=== PATIENT | female | born 2000 | race Caucasian/White ===

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

== ENCOUNTER 2021-05-04 15:29 | Emergency (ER) | payer OTHER ==
--- OUTSIDE RECORDS SUMMARY | 2021-05-04 15:43 | XMS REPORT | Continuity of Care Document ---
:2000 Author Organization [facility] t Address [address] [place] [address] Care Team Providers Name Role Phone Minnie Fontana Primary Care Physician GRISEL GOODWIN Attending Clinician Unavailable Grisel Goodwin MD Attending Clinician Doctor Unassigned, Name Attending Clinician Unavailable Pee ROBIN Attending Clinician Pob, Lab Main Attending Clinician Unavailable FISH Attending Clinician Unavailable Esvin LAWS Attending Clinician Ultrasound Attending Clinician Unavailable Hola Menjivar MD Attending Clinician GRISEL GOODWIN Admitting Clinician Unavailable FISH Admitting Clinician Unavailable Grisel Goodwin MD Admitting Clinician Payers Payer Name Policy Type Policy Number Effective Date Expiration Date S george FORMERLY [facility] [id number] 2020 00:00:00 MEDICAID [place] [facility] [id number] 2020 00:00:00 [facility] [id number] 2015 CHOICE 00:00:00 [facility] [id number] 2019 00:00:00 Problems Condition Condition Condition Status Onset Resolution Last Treating Co mments Source Name Details Category Date Date Treatment Clinician Date COVID-19 COVID-19 Disease Active Unive rs virus virus 1-13 [place] [facility] Liveborn Liveborn Disease Active Unive rs , of , of 1-13 [place] of kumar kumar [place] , , 00 [place] d[place] born in born in [facility] hospital by by delivery delivery Oligohydra Oligohydra Disease Active U nivers mnios mnios 1-12 [place]y of antepartum antepartum [place] , third , third 00 Medical trimester, trimester, Br anch other other fetus fetus 38 weeks 38 weeks Disease Active Unive rs gestation gestation 1-12 ity of of of 00:00: [place] 00 [facility] High risk High risk Disease Active 2020-04 Uni vers , , 1-30 [place] of ante[place] ante[place] [facility] Abnormal Abnormal Disease Active 2020-04 Unive rs maternal maternal 1-16 ity of glucose glucose 00:00: [place] tolerance, tolerance, 00 Me dical antepartum antepartum Br anch Uterine Uterine Disease Active 2020-04 Univers size-date size-date 02 it[place] of discrepanc discrepanc 00:00[place] in third y in third 00 Me dical trimester trimester Bran ch Morbid Morbid Disease Active 2020-04 Univers obesity obesity 1-02 [place] of with body with body 00:00[place] mass index mass index 00 Me dical of of Branch 40.0-49.9 40.0-49.9 Nausea and Nausea and Disease Active U nivers vomiting vomiting 9-02 ity of during during 00:00: [place] [facility] Supervisio Supervisio Disease Active U nivers n of high n of high 9-02 ity of risk risk 00:00: [place] [facility] in third in third Branch trimester trimester Obesity in Obesity in Disease Active U nivers 5-24 ity of 00:00: [address] [place] [address] Depression Depression Disease Active U nivers during during 5-24 [place] third in third 00 Medica l trimester trimester Bran ch Vaping Vaping Disease Active Univers nicotine nicotine 09-05 ity of dependence dependence 00:00[place] , tobacco , tobacco 00 [facility] product product Branch Allergies, Adverse Reactions, Alerts Allergy Allergy Status Severity Reaction(s) Onset Inactive Treating Comm ents Source Name Type Date Date Clinician NO KNOWN Drug Active Univers ALLERGIE Class ity of S [facility] Social History Social Habit Start Date Stop Date Quantity Comments Source ASSERTION 2020-08-11 [facility] 00:00:00 [facility] Exposure to Not sure [facility] SARS-CoV-2 [facility] [place] [facility] (event) [place] Alcohol intake 2021-04-28 2021-04-28 Ex-drinker [facility] 00:00:00 00:00:00 (finding) [facility] Tobacco use and 2015-01-25 2015-01-25 Never used Universit y of exposure 00:00:00 00:00:00 [facility] Sex Assigned At [birth year] Universit y of 00:00:00 00:00:00 [facility] Smoking Status Start Date Stop Date Source Never smoker [facility] Medications Ordered Filled Start Stop Current Ordering Indication Dosage Frequency Signature Comments Components Source Medication Medication Date Date Medication? Clinician (SIG) Name Name ibuprofen Yes 600mg 600 mg, Univ ers (IBU) 1-15 Oral, Q6H ity of tablet 600 12:00: ABX, First [place] mg 00 dose on Medical Sat Branch 04/29/21 at 0600, Until Discontinu ed, Routine ibuprofen Yes 600mg 600 mg, Univ ers (IBU) 1-15 Oral, Q6H ity of tablet 600 12:00: ABX, First [place] mg 00 dose on Medical Sat Branch 04/29/21 at 0600, Until Discontinu ed, Routine SERTraline Yes 50mg 50 mg, Unive rs (ZOLOFT) 1-14 Oral, ity of tablet 50 15:00: DAILY, [place] mg 00 First dose Medical on Fri Branch 04/28/21 at 0900, Until Discontinu ed, Routine SERTraline Yes 50mg 50 mg, Unive rs (ZOLOFT) 1-14 Oral, ity of tablet 50 15:00: DAILY, [place] mg 00 First dose Medical on Sat Branch 04/28/21 at 0900, Until Discontinu ed, Routine ketorolac 2021- Yes 30mg 30 mg, Unive rs (TORADOL) 04-28 Slow IV ity of injection 12:00: 11:59 Push, Q6H [place] 30 mg 00 :00 ABX, 4 Medical doses, Branch First dose on Sat04/28/21 at 0600, Last dose on 04/29/21 at 0000, Routine
tribal council member approving Restricted medication : CORIN GOODWIN ketorolac 2021- Yes 30mg 30 mg, Unive rs (TORADOL) 04-28 Slow IV ity of injection 12:00: 11:59 Push, Q6H [place] 30 mg 00 :00 ABX, 4 Medical doses, Branch First dose on Sat04/28/21 at 0600, Last dose on 04/29/21 at 0000, Routine
tribal council member approving Restricted medication : CORIN GOODWIN PNV 2021- No Take by Univers no.95/violette 04-2814 mouth. ity o f 09:02: 00:00 [place] fum/folic 41 :00 [facility] ( ORAL) PNV 2021- No Take by Univers no.95/violette 04-2814 mouth. ity o f 09:02: 00:00 [place] fum/folic 41 :00 [facility] ( ORAL) HYDROcodone Yes 1{tbl} 1 tablet, Univers -acetaminop 14 Oral, ity of hen (NORCO 06:00: Q6HPRN, [place] 5) 5-325 mg 00 Starting Medi boris tablet 1 on Sat Branch tablet 04/28/21 at 0000, Until Discontinu ed, Routine, Pain (scale 7-10) acetaminoph Yes 650mg 650 mg, Un margo en 1-14 Oral, Q6H ity of (TYLENOL) 06:00: ABX, First [place] tablet 650 00 dose on Medica l mg Sat Branch 1/14/22 at 0000, Until Discontinu ed, Routine HYDROcodone 0 Yes 1{tbl} 1 tablet, Univers -acetaminop 1-14 Oral, ity of hen (NORCO 06:00: Q6HPRN, [place] 5) 5-325 mg 00 Starting Medi boris tablet 1 on Fri Branch tablet 04/28/21 at 0000, Until Discontinu ed, Routine, Pain (scale 7-10) acetaminoph Yes 650mg 650 mg, Un margo en 1-14 Oral, Q6H ity of (TYLENOL) 06:00: ABX, First [place] tablet 650 00 dose on Medica l mg Fri Branch 04/28/21 at 0000, Until Discontinu ed, Routine acetaminoph 0 Yes [id number] 650mg Take 2 Univers en 325 mg 1-14 tablets by ity of tablet 00:00: mouth [place] 00 every 6 Medical (six) Branch hours as needed for Pain (scale 1-3) or Pain (scale 4-6). Yes [id number] 1{tbl} Take 1 Univers vitamin 1-14 tablet by ity of w/FA tablet 00:00: mouth [place] 00 daily. Medical Branch docusate 0 Yes [id number] 240mg Take 1 U nivers calcium 240 1-14 capsule by it y of mg capsule 00:00: mouth once [place] 00 daily as Medical needed for Branch Constipati on. ferrous 0 Yes [id number] 325mg Take 1 Un margo sulfate 325 1-14 tablet by ity of mg (65 mg 00:00: mouth 2 [place] iron) 00 (two) Medical tablet times Branch daily. ibuprofen 0 Yes [id number] 600mg Take 1 Univers 600 mg 1-14 tablet by ity of tablet 00:00: mouth [place] 00 every 6 Medical (six) Branch hours as needed (Pain). Take with food or milk. acetaminoph 0 Yes [id number] 650mg Take 2 Univers en 325 mg 1-14 tablets by ity of tablet 00:00: mouth [place] 00 every 6 Medical (six) Branch hours as needed for Pain (scale 1-3) or Pain (scale 4-6). 2021-0 Yes [id number] 1{tbl} Take 1 Univers vitamin 1-14 tablet by ity of w/FA tablet 00:00: mouth [place] 00 daily. Medical Branch docusate 0 Yes [id number] 240mg Take 1 U nivers calcium 240 1-14 capsule by it y of mg capsule 00:00: mouth once [place] 00 daily as Medical needed for Branch Constipati on. ferrous Yes [id number] 325mg Take 1 Un margo sulfate 325 1-14 tablet by ity of mg (65 mg 00:00: mouth 2 [place] iron) 00 (two) Medical tablet times Branch daily. ibuprofen Yes [id number] 600mg Take 1 Univers 600 mg 1-14 tablet by ity of tablet 00:00: mouth [place] 00 every 6 Medical (six) Branch hours as needed (Pain). Take with food or milk. acetaminoph Yes [id number] 650mg Take 2 Univers en 325 mg 1-14 tablets by ity of tablet 00:00: mouth [place] 00 every 6 Medical (six) Branch hours as needed for Pain (scale 1-3) or Pain (scale 4-6). Yes [id number] 1{tbl} Take 1 Univers vitamin 1-14 tablet by ity of w/FA tablet 00:00: mouth [place] 00 daily. Medical Branch docusate Yes [id number] 240mg Take 1 U nivers calcium 240 1-14 capsule by it y of mg capsule 00:00: mouth once [place] 00 daily as Medical needed for Branch Constipati on. ferrous Yes [id number] 325mg Take 1 Un margo sulfate 325 1-14 tablet by ity of mg (65 mg 00:00: mouth 2 [place] iron) 00 (two) Medical tablet times Branch daily. ibuprofen 0 Yes [id number] 600mg Take 1 Univers 600 mg 1-14 tablet by ity of tablet 00:00: mouth [place] 00 every 6 Medical (six) Branch hours as needed (Pain). Take with food or milk. HYDROcodone 0 2021- Yes [id number] 1{tbl} Take 1 U nivers -acetaminop 1-14 -22 tablet by it y of hen 5-325 00:00: 05:59 mouth [place] mg tablet 00 :00 every 6 Medical (six) Branch hours as needed for Pain (scale 7-10) for up to 7 days. Indication s: acute pain HYDROcodone 2021- Yes [id number] 1{tbl} Take 1 U nivers -acetaminop 04-28 tablet by it y of hen 5-325 00:00: 05:59 mouth [place] mg tablet 00 :00 every 6 Medical (six) Branch hours as needed for Pain (scale 7-10) for up to 7 days. Indication s: acute pain HYDROcodone 2021- Yes [id number] 1{tbl} Take 1 U nivers -acetaminop 04-28 tablet by it y of hen 5-325 00:00: 05:59 mouth [place] mg tablet 00 :00 every 6 Medical (six) Branch hours as needed for Pain (scale 7-10) for up to 7 days. Indication s: acute pain gabapentin 2021- Yes [id number] 300mg Take 1 Univers 300 mg 04-28 capsule by ity of capsule 00:00: 05:59 mouth 3 [place] 00 :00 (three) Medical times Branch daily for 5 days. gabapentin 2021- Yes [id number] 300mg Take 1 Univers 300 mg 04-28 capsule by ity of capsule 00:00: 05:59 mouth 3 [place] 00 :00 (three) Medical times Branch daily for 5 days. acetaminoph 2021- No 1000mg 1,000 mg, Univers en ADULT 04-27 IV ity of ([facility]) 21:00: 22:33 Infusion, [place] injection 00 :00 Administer Medi boris 1,000 mg over 15 Branch Minutes, POST-PROCE DURE ONCE, 1 dose, Starting on [place] 04/27/21 at 1500, Until [place] 04/27/21 at 1633, Routine, Pain (scale 1-3), Pain (scale 4-6)
In dication: Perioperat mahad Patient gabapentin Yes 300mg 300 mg, Uni vers (NEURONTIN) 04-27 Oral, TID, it y of capsule 300 20:00: First dose [place] mg 00 on [place] Medical 04/27/21 at Branch 1400, Until Discontinu ed, Routine gabapentin Yes 300mg 300 mg, Uni vers (NEURONTIN) 04-27 Oral, TID, it y of capsule 300 20:00: First dose [place] mg 00 on [place] Medical 04/27/21 at Branch 1400, Until Discontinu ed, Routine simethicone 2021-0 Yes 125mg 125 mg, Un margo (MYLICON) 04-27 Oral, ity of chewable 19:00: PC+HS, [place] tablet 125 00 First dose Med ical mg on [place] Branch 04/27/21 at 1300, Until Discontinu ed, Routine simethicone 2021-0 Yes 125mg 125 mg, Un margo (MYLICON) 04-27 Oral, ity of chewable 19:00: PC+HS, [place] tablet 125 00 First dose Med ical mg on [place] Branch 04/27/21 at 1300, Until Discontinu ed, Routine diphenhydrA 2021-0 Yes 25mg 25 mg, Univ ers MINE 04-27 Oral, ity of (BENADRYL) 16:57: Q6HPRN, [place] tablet 25 02 Starting Medica l mg on [place] Branch 04/27/21 at 1057, Until Discontinu ed, Routine, Sleep, Itching ondansetron 2021-0 Yes 4mg 4 mg, Slow Univers (ZOFRAN 04-27 IV Push, ity of (PF)) 16:57: Q8HPRN, [place] injection 4 02 Starting Medi boris mg on [place] Branch 04/27/21 at 1057, Until Discontinu ed, Routine, Nausea and Vomiting (N/V) docusate 2021-0 Yes 240mg 240 mg, Unive rs calcium 04-27 Oral, ity of (SURFAK) 16:57: QDAILYPRN, [place] capsule 240 02 Starting Medi boris mg on [place] Branch 04/27/21 at 1057, Until Discontinu ed, Routine, Constipati on magnesium 2021-0 Yes 30mL 30 mL, Univer s hydroxide 04-27 Oral, ity of (MILK OF 16:57: QDAILYPRN, [place] MAGNESIA) 02 Starting Medica l 400 mg/5 mL on [facility] Branch suspension 04/27/21 at 30 mL 1057, Until Discontinu ed, Routine, Constipati on diphenhydrA 2021-0 Yes 25mg 25 mg, Univ ers MINE 04-27 Oral, ity of (BENADRYL) 16:57: Q6HPRN, [place] tablet 25 02 Starting Medica l mg on [place] Branch 04/27/21 at 1057, Until Discontinu ed, Routine, Sleep, Itching ondansetron 0 Yes 4mg 4 mg, Slow Univers (ZOFRAN 04-27 IV Push, ity of (PF)) 16:57: Q8HPRN, [place] injection 4 02 Starting Medi boris mg on [place] Branch 04/27/21 at 1057, Until Discontinu ed, Routine, Nausea and Vomiting (N/V) docusate Yes 240mg 240 mg, Unive rs calcium 04-27 Oral, ity of (SURFAK) 16:57: QDAILYPRN, [place] capsule 240 02 Starting Medi boris mg on [facility] Branch 04/27/21 at 1057, Until Discontinu ed, Routine, Constipati on magnesium Yes 30mL 30 mL, Univer s hydroxide 04-27 Oral, ity of (MILK OF 16:57: QDAILYPRN, [place] MAGNESIA) 02 Starting Medica l 400 mg/5 mL on [facility] Branch suspension 04/27/21 at 30 mL 1057, Until Discontinu ed, Routine, Constipati on bisacodyL 0 Yes 10mg 10 mg, Univer s (DULCOLAX) 04-27 Rectal, ity of suppository 16:57: QDAILYPRN, [place] 10 mg Starting Medical on [facility] Branch 04/27/21 at 1057, Until Discontinu ed, Routine, Constipati on bisacodyL 0 Yes 10mg 10 mg, Univer s (DULCOLAX) 04-27 Rectal, ity of suppository 16:57: QDAILYPRN, [place] 10 mg Starting Medical on [place] Branch 04/27/21 at 1057, Until Discontinu ed, Routine, Constipati on azithromyci 2021-0 202- No 500mg 500 mg, IV Univers n 04-27 Piggyback, ity of (ZITHROMAX) 15:45: 16:56 ONCE, 1 [place] 500 mg in 00 :28 dose, On Medica l NaCl 0.9% [place] Branch (NS) 250 mL 04/27/21 at VIAL-MATE 0945, IV Administer piggyback over 60 Minutes, 250 mL
R sera for Anti-Infec tive: Surgical Prophylaxi s
Surgi boris Prophylaxi s: POLICE LIAISON OFFICER
Duration of therapy: within 24 hours of surgery mupirocin 2021-0 Yes Intra-op Univ ers (BACTROBAN 1-13 ity of OINT) 2 % 15:44: [place] skin 00 Medical ointment Branch mupirocin 0 Yes Intra-op Univ ers (BACTROBAN 1-13 ity of OINT) 2 % 15:44: [place] skin Medical ointment Branch sodium Yes PRN, Univers chloride 04-27 Starting ity of 0.9 % 15:23: on [place] irrigation 00 04/27/21 at Med ical solution 0923, Branch Until Discontinu ed, Intra-op sodium Yes PRN, Univers chloride 04-27 Starting ity of 0.9 % 15:23: on [place] irrigation 00 04/27/21 at Med ical solution 0923, [place] Until Discontinu ed, Intra-op clindamycin 2021- No 900mg 900 mg, IV Univers in 5 % 04-27 Piggyback, ity of dextrose 15:00: 13:40 Q8H ABX, [place] (CLEOCIN) 00 :05 First dose Medi boris 900 mg/50 on [place] Branch mL IV 04/27/21 at piggyback 0900, RTU 900 mg Until Discontinu ed, Administer over 30 Minutes, 50 mL
Reas on for Anti-Infec tive: Surgical Prophylaxi s
Surgi boris Prophylaxi s: POLICE LIAISON OFFICER
Duration of therapy: within 24 hours of surgery
Restricte d use approved by: ADC PROVIDER LR 1000 mL 2021- No 999mL/h 999 mL/hr, Univers + oxytocin 04-27 IV ity of 20 units IV 14:45: 16:56 Infusion, [place] Solution 00 :53 ONCE, On Medical [place] Branch 04/27/21 at 0845, For 1 dose LR 1000 mL 2021- No 2mU/min at 6-120 Univers + oxytocin 04-27 mL/hr, IV ity of 20 units IV 06:00: 16:56 Infusion, [place] Solution 00 :28 TITRATE, Medical Starting Branch on [place] 04/27/21 at 0000, Until [place] 04/27/21 at 1056, ANGELICA gentamicin 2021- No 5mg/kg 380 mg Un margo 40 mg/mL 04-27 (rounded ity of 380 mg in 03:15: 13:40 from 375.5 [place] NaCl 0.9% 00 :05 mg = 5 Medical (NS) 250 mL mg/kg Branch IV infusion ?75.1 kg Adjusted weight), IV Infusion, Q24H ABX, First dose (after last modificati on) on Sat04/26/21 at 2115, Until Discontinu ed, Administer over 60 Minutes, 250 mL
Reas on for Anti-Infec tive: Empiric Therapy for Suspected Infection< br>Empiric Therapy Site: Pelvic
Duration of therapy: 72 hours ampicillin 2021- No 2g 2,000 mg Un margo (POLYCILLIN 04-27 (2 g), IV it y of -N) 2,000 03:15: 13:40 Piggyback, [place] mg in NaCl 00 :05 Q6H ABX, Medic al 0.9% (NS) First dose Bran ch 100 mL on Sat MINI-BAG 04/26/21 at 2115, Until Discontinu ed, Administer over 30 Minutes, 100 mL
Reas on for Anti-Infec tive: Empiric Therapy for Suspected Infection acetaminoph 2021- No 650mg 650 mg, U nivers en 04-27 Oral, ity of (TYLENOL) 01:58: 16:56 Q6HPRN, [place] tablet 650 49 :28 Starting Medic al mg on Wed Branch 04/26/21 at 1958, Until [place] 04/27/21 at 1056, Routine, Temp > 38.5 C LR 1000 mL 2021- No 4mU/min 4 Uni vers + oxytocin 04-26 nancy-unit it y of 20 units IV 22:00: 16:56 s/min (12 [place] Solution 00 :28 mL/hr), IV Medic al Infusion, Branch CONTINUOUS , Starting on Sat04/26/[address] using titration orders at midnight<b r> lactated No 500mL at 999 Unive rs ringers IV 04-26 mL/hr, 500 it y of infusion 21:30: 21:14 mL, IV [place] 500 mL 00 :00 Infusion, Medical ONCE, 1 Branch dose, On Sat04/26/21 at 1530, Routine D5W-LR IV No 1000mL at 125 Uni vers infusion 04-26 mL/hr, IV ity o f 1,000 mL 20:30: 16:56 Infusion, [place] 00 :35 CONTINUOUS Medical , Starting Branch on Sat04/26/21 at 1430, Until [place] 04/27/21 at 1056, Routine FENTanyl PF No 100ug 100 mcg, Univers (SUBLIMAZE 04-26 Slow IV ity o f (PF)) 20:22: 16:56 Push, [place] injection 54 :28 Q1HPRN, Medical 100 mcg Starting Branch on Sat04/26/21 at 1422, Until [place] 04/27/21 at 1056, Routine, contractio n pain without an epidural and SVE < 8 cm and Cat I strip proMETHazin No 25mg 25 mg, IV Univers e 04-26 Piggyback, ity of (PHENERGAN) 20:22: 16:56 Q4HPRN, [place] 25 mg in 46 :28 Starting Medical NaCl 0.9% on Sat Branch (NS) 50 mL 04/26/21 at IV 1422, piggyback Until [place] 04/27/21 at 1056, Routine, Nausea and Vomiting (N/V) sodium No 30mL 30 mL, Univers citrate-cit 04-26 Oral, ity of chanda acid 20:20: 14:15 PRE-PROCED [place] (BICITRA) 04 :00 URE ONCE, Medic al 500-334 1 dose, Branch mg/5 mL Starting solution 30 on Sat mL 04/26/21 at 1420, Until Discontinu ed, Routine, Surgery/Pr ocedure lactated 2021- No 500mL at 999 Unive rs ringers IV 04-26-13 mL/hr, 500 it y of infusion 20:20: 16:56 mL, IV [place] 500 mL 03 :35 Infusion, Medical PRN - SEE Branch INSTRUCTIO NS, Starting on Sat04/26/21 at 1420, Until [place] 04/27/21 at 1056, Routine lactated 2021- No 500mL at 999 Unive rs ringers IV 04-26-13 mL/hr, 500 it y of infusion 20:20: 13:21 mL, IV [place] 500 mL 03 :00 Infusion, Medical PRN - SEE Branch INSTRUCTIO NS, 1 dose, Starting on Sat04/26/21 at 1420, Until Discontinu ed, Routine PNV Yes Take by Univers no.95/violette 1-12 mouth. ity of us 14:11: [place] fum/folic 24 Medical ac Branch ( ORAL) PNV Yes Take by Univers no.95/violette 1-10 mouth. ity of us 23:23: [place] fum/folic 46 Medical ac Branch ( ORAL) azithromyci 2021- Yes [id number] 1000mg Take 2 Univers n 500 mg 04-20 tablets by ity of tablet 00:00: 05:59 mouth [place] 00 :00 daily for Medical 1 day. Branch fluconazole 2021- Yes [id number] 200mg Take 1 Univers 200 mg 04-17 tablet by ity of tablet 00:00: 05:59 mouth [place] 00 :00 daily for Medical 1 day. Branch PNV 2020-04 Yes Take by Univers no.95/violette 2-23 mouth. ity of us 14:22: [place] fum/folic 21 Medical ac Branch ( ORAL) PNV 2020-04 Yes Take by Univers no.95/violette 2-23 mouth. ity of us 14:22: [place] fum/folic 21 Medical ac Branch ( ORAL) PNV 2020-04 Yes Take by Univers no.95/violette 2-23 mouth. ity of us 14:22: [place] fum/folic 21 Medical ac Branch ( ORAL) PNV 2021-1 Yes Take by Univers no.95/violette 2-23 mouth. ity of us 14:22: [place] fum/folic 21 Medical ac Branch ( ORAL) PNV 2020-04 Yes Take by Univers no.95/violette 2-23 mouth. ity of us 14:22: [place] fum/folic 21 Medical ac Branch ( ORAL) PNV 2020-04 Yes Take by Univers no.95/violette 2-23 mouth. ity of us 14:22: [place] fum/folic 21 Medical ac Branch ( ORAL) PNV 2020-04 Yes Take by Univers no.95/violette 2-23 mouth. ity of us 14:22: [place] fum/folic 21 Medical ac Branch ( ORAL) PNV 2020-04 Yes Take by Univers no.95/violette 2-21 mouth. ity of us 21:54: [place] fum/folic 13 Medical ac Branch ( ORAL) PNV 2020-04 Yes Take by Univers no.95/violette 2-21 mouth. ity of us 21:54: [place] fum/folic 13 Medical ac Branch ( ORAL) PNV 2020-04 Yes Take by Univers no.95/violette 2-21 mouth. ity of us 16:55: [place] fum/folic 17 Medical ac Branch ( ORAL) PNV 2020-04 Yes Take by Univers no.95/violette 2-05 mouth. ity of us 23:03: [place] fum/folic 25 Medical ac Branch ( ORAL) PNV 2020-04 Yes Take by Univers no.95/violette 1-05 mouth. ity of 16:07: [place] fum/folic 50 Medical ac Branch ( ORAL) PNV 2020-04 Yes Take by Univers no.95/violette 1-05 mouth. ity of us 16:07: [place] fum/folic 50 Medical ac Branch ( ORAL) PNV 2020-04 Yes Take by Univers no.95/violette 1-05 mouth. ity of us 16:07: [place] fum/folic 50 Medical ac Branch ( ORAL) PNV 2020-04 Yes Take by Univers no.95/violette 1-05 mouth. ity of 16:07: [place] fum/folic 50 Medical ac Branch ( ORAL) SERTraline Yes [id number] 50mg Take 1 U nivers 50 mg 9-27 tablet by ity of tablet 00:00: mouth [place] 00 daily. Medical Branch SERTraline 0 Yes [id number] 50mg Take 1 U nivers 50 mg 9-27 tablet by ity of tablet 00:00: mouth [place] 00 daily. Medical Branch SERTraline 0 Yes [id number] 50mg Take 1 U nivers 50 mg 9-27 tablet by ity of tablet 00:00: mouth [place] 00 daily. Medical Branch SERTraline 0 Yes [id number] 50mg Take 1 U nivers 50 mg 9-27 tablet by ity of tablet 00:00: mouth [place] 00 daily. Medical Branch SERTraline 0 Yes [id number] 50mg Take 1 U nivers 50 mg 9-27 tablet by ity of tablet 00:00: mouth [place] 00 daily. Medical Branch SERTraline 0 Yes [id number] 50mg Take 1 U nivers 50 mg 9-27 tablet by ity of tablet 00:00: mouth [place] 00 daily. Medical Branch SERTraline 0 Yes [id number] 50mg Take 1 U nivers 50 mg 9-27 tablet by ity of tablet 00:00: mouth [place] 00 daily. Medical Branch SERTraline 0 Yes [id number] 50mg Take 1 U nivers 50 mg 9-27 tablet by ity of tablet 00:00: mouth [place] 00 daily. Medical Branch SERTraline 0 Yes [id number] 50mg Take 1 U nivers 50 mg 9-27 tablet by ity of tablet 00:00: mouth [place] 00 daily. Medical Branch SERTraline 0 Yes [id number] 50mg Take 1 U nivers 50 mg 9-27 tablet by ity of tablet 00:00: mouth [place] 00 daily. Medical Branch SERTraline 0 Yes [id number] 50mg Take 1 U nivers 50 mg 9-27 tablet by ity of tablet 00:00: mouth [place] 00 daily. Medical Branch SERTraline 0 Yes [id number] 50mg Take 1 U nivers 50 mg 9-27 tablet by ity of tablet 00:00: mouth [place] 00 daily. Medical Branch SERTraline 0 Yes [id number] 50mg Take 1 U nivers 50 mg 9-27 tablet by ity of tablet 00:00: mouth [place] 00 daily. Medical Branch SERTraline 2021-0 Yes [id number] 50mg Take 1 U nivers 50 mg 9-27 tablet by ity of tablet 00:00: mouth [place] 00 daily. Medical Branch SERTraline 0 Yes [id number] 50mg Take 1 U nivers 50 mg 9-27 tablet by ity of tablet 00:00: mouth [place] 00 daily. Medical Branch SERTraline 0 Yes [id number] 50mg Take 1 U nivers 50 mg 9-27 tablet by ity of tablet 00:00: mouth [place] 00 daily. Medical Branch SERTraline 0 Yes [id number] 50mg Take 1 U nivers 50 mg 9-27 tablet by ity of tablet 00:00: mouth [place] 00 daily. Medical Branch SERTraline 0 Yes [id number] 50mg Take 1 U nivers 50 mg 9-27 tablet by ity of tablet 00:00: mouth [place] 00 daily. Medical Branch SERTraline 0 Yes [id number] 50mg Take 1 U nivers 50 mg 9-27 tablet by ity of tablet 00:00: mouth [place] 00 daily. Medical Branch SERTraline 0 Yes [id number] 50mg Take 1 U nivers 50 mg 9-27 tablet by ity of tablet 00:00: mouth [place] 00 daily. Medical Branch SERTraline 0 Yes [id number] 50mg Take 1 U nivers 50 mg 9-27 tablet by ity of tablet 00:00: mouth [place] 00 daily. Medical Branch SERTraline 0 Yes [id number] 50mg Take 1 U nivers 50 mg 9-27 tablet by ity of tablet 00:00: mouth [place] 00 daily. Medical Branch SERTraline 0 Yes [id number] 50mg Take 1 U nivers 50 mg 9-27 tablet by [facility]y of tablet 00:00: mouth [place] 00 daily. [facility] SERTraline 0 Yes [id number] 50mg Take 1 [facility] 50 mg 9-27 tablet by [facility] of tablet 00:00: mouth [place] 00 daily. [facility] pyridoxine, 0 Yes [id number] 25mg Take 1 [facility] VITAMIN 8-30 tablet by [facility] B-6, 25 mg 00:00[place] (three) [facility] times [facility] daily. doxylamine 0 Yes [id number] 25mg Take 1 [facility] 25 mg 8-30 tablet by [facility] of tablet 00:00: mouth at [place] 00 bedtime. [facility] pyridoxine, 1- No [id number] 25mg Take 1 [facility] VITAMIN 8-30 10-25 tablet by ity of B-6, 25 mg 00:00: 00:00 mouth 3 [place] tablet 00 :00 (three) Medical times Branch daily. doxylamine 2020- No [id number] 25mg Take 1 [facility] 25 mg 8-30 10-25 tablet by ity of tablet 00:00: 00:00 mouth at [place] 00 :00 bedtime. Medical [facility] PNV Yes Take by [facility] no.95/violette 8-17 mouth. ity of 18:27: [place] fum/folic 39 Medical ac Branch ( ORAL) PNV 0 Yes Take by [facility] no.95/violette 8-17 mouth. ity of 18:27: [place] fum/folic 39 [facility] ac [facility] ( ORAL) PNV Yes Take by [facility] no.95/[place] 8-17 mouth. ity of 18:27: [place] fum/folic 39 [facility] ( ORAL) PNV 0 Yes Take by Univers no.95/violette 8-17 mouth. ity of 18:27: [place] fum/folic 39 [facility] ac [facility] ( ORAL) Immunizations Ordered Immunization Filled Date Status Comments Sour ce Name Immunization Name Rho (d) Immune 2021-04-28 Completed [facility] Globulin 00:00:00 [facility] Rho (d) Immune 2021-04-28 Completed [facility] Globulin 00:00:00 [facility] Rho (d) Immune 2021-04-28 Completed [facility] Globulin 00:00:00 [facility] Rho (d) Immune 2021-02-28 Completed [facility] Globulin 00:00:00 [facility] Rho (d) Immune 2021-02-28 Completed [facility] Globulin 00:00:00 [facility] Rho (d) Immune 2021-02-28 Completed [facility] Globulin 00:00:00 [facility] Rho (d) Immune 2021-02-28 Completed [facility] Globulin 00:00:00 [facility] Rho (d) Immune 2021-02-28 Completed [facility] Globulin 00:00:00 [facility] Rho (d) Immune 2021-02-28 Completed [facility] Globulin 00:00:00 [facility] Rho (d) Immune 2021-02-28 Completed [facility] Globulin 00:00:00 [facility] Rho (d) Immune 2021-02-28 Completed [facility] Globulin 00:00:00 [facility] [place] [facility] Rho (d) Immune 2021-02-28 Completed [facility] Globulin 00:00:00 [facility] Rho (d) Immune 2021-02-28 Completed [facility] Globulin 00:00:00 [facility] [place] [facility] Rho (d) Immune 2021-02-28 Completed [facility] Globulin 00:00:00 [facility] Rho (d) Immune 2021-02-28 Completed [facility] Globulin 00:00:00 [facility] Rho (d) Immune 2021-02-28 Completed [facility] Globulin 00:00:00 [facility] Rho (d) Immune 2021-02-28 Completed [facility] Globulin 00:00:00 [facility] Rho (d) Immune 2021-02-28 Completed [facility] Globulin 00:00:00 [facility] Rho (d) Immune 2021-02-28 Completed [facility] Globulin 00:00:00 [facility] Rho (d) Immune 2021-02-28 Completed [facility] Globulin 00:00:00 [facility] Rho (d) Immune 2021-02-28 Completed [facility] Globulin 00:00:00 [facility] Rho (d) Immune 2021-02-28 Completed [facility] Globulin 00:00:00 [facility] Rho (d) Immune 2021-02-28 Completed [facility] Globulin 00:00:00 [facility] Meningococcal 2019-08-13 Completed [facility] Polysaccharide (groups 00:00:00 [place] [facility], C, Y and W-135) Branch conjugate vaccine (MCV4P) Meningococcal 2019-08-13 Completed [facility] Polysaccharide (groups 00:00:00 [place] [facility], [facility], Y and W-135) Branch conjugate vaccine (MCV4P) Meningococcal 2019-08-13 Completed [facility] Polysaccharide (groups 00:00:00 [place] [facility], C, Y and W-135) Branch conjugate vaccine (MCV4P) Meningococcal 2019-08-13 Completed [facility] Polysaccharide (groups 00:00:00 [place] [facility], C, Y and W-135) Branch conjugate vaccine (MCV4P) Meningococcal 2019-08-13 Completed [facility] Polysaccharide (groups 00:00:00 [place] [facility], C, Y and W-135) Branch conjugate vaccine (MCV4P) Meningococcal 2019-08-13 Completed [facility] Polysaccharide (groups 00:00:00 [place] [facility], C, Y and W-135) Branch conjugate vaccine (MCV4P) Meningococcal 2019-08-13 Completed [facility] Polysaccharide (groups 00:00:00 [place] [facility], C, Y and W-135) Branch conjugate vaccine (MCV4P) Meningococcal 2019-08-13 Completed [facility] Polysaccharide (groups 00:00:00 [place] [facility], C, Y and W-135) Branch conjugate vaccine (MCV4P) Meningococcal 2019-08-13 Completed [facility] Polysaccharide (groups 00:00:00 [place] [facility], C, Y and W-135) Branch conjugate vaccine (MCV4P) Meningococcal 2019-08-13 Completed [facility] Polysaccharide (groups 00:00:00 [place] [facility], C, Y and W-135) Branch conjugate vaccine (MCV4P) Meningococcal 2019-08-13 Completed [facility] Polysaccharide (groups 00:00:00 [place] [facility], C, Y and W-135) Branch conjugate vaccine (MCV4P) Meningococcal 2019-08-13 Completed [facility] Polysaccharide (groups 00:00:00 [place] [facility], C, Y and W-135) Branch conjugate vaccine (MCV4P) Meningococcal 2019-08-13 Completed [facility] Polysaccharide (groups 00:00:00 [place] [facility], C, Y and W-135) Branch conjugate vaccine (MCV4P) Meningococcal 2019-08-13 Completed [facility] Polysaccharide (groups 00:00:00 [place] [facility], C, Y and W-135) Branch conjugate vaccine (MCV4P) Meningococcal 2019-08-13 Completed [facility] Polysaccharide (groups 00:00:00 [place] [facility], C, Y and W-135) Branch conjugate vaccine (MCV4P) Meningococcal 2019-08-13 Completed [facility] Polysaccharide (groups 00:00:00 [place] [facility], C, Y and W-135) Branch conjugate vaccine (MCV4P) Meningococcal 2019-08-13 Completed [facility] Polysaccharide (groups 00:00:00 [place] [facility], C, Y and W-135) Branch conjugate vaccine (MCV4P) Meningococcal 2019-08-13 Completed [facility] Polysaccharide (groups 00:00:00 [place] [facility], C, Y and W-135) Branch conjugate vaccine (MCV4P) Meningococcal 2019-08-13 Completed [facility] Polysaccharide (groups 00:00:00 [place] [facility], C, Y and W-135) Branch conjugate vaccine (MCV4P) Meningococcal 2019-08-13 Completed [facility] Polysaccharide (groups 00:00:00 [place] [facility], C, Y and W-135) Branch conjugate vaccine (MCV4P) Meningococcal 2019-08-13 Completed [facility] Polysaccharide (groups 00:00:00 [place] [facility], C, Y and W-135) Branch conjugate vaccine (MCV4P) Meningococcal 2019-08-13 Completed [facility] Polysaccharide (groups 00:00:00 [place] [facility], C, Y and W-135) Branch conjugate vaccine (MCV4P) Meningococcal 2019-08-13 Completed [facility] Polysaccharide (groups 00:00:00 [place] [facility], C, Y and W-135) Branch conjugate vaccine (MCV4P) Meningococcal 2019-08-13 Completed [facility] Polysaccharide (groups 00:00:00 [place] [facility], C, Y and W-135) Branch conjugate vaccine (MCV4P) Influenza Virus 2016-03-04 Completed Universit y of Vaccine - Whole 00:00:00 [facility] Influenza Virus 2016-03-04 Completed Universit y of Vaccine - Whole 00:00:00 [facility] Influenza Virus 2016-03-04 Completed Universit y of Vaccine - Whole 00:00:00 [facility] Influenza Virus 2016-03-04 Completed Universit y of Vaccine - Whole 00:00:00 [facility] Influenza Virus 2016-03-04 Completed Universit y of Vaccine - Whole 00:00:00 [facility] Influenza Virus 2016-03-04 Completed Universit y of Vaccine - Whole 00:00:00 [facility] Influenza Virus 2016-03-04 Completed Universit y of Vaccine - Whole 00:00:00 [facility] Influenza Virus 2016-03-04 Completed Universit y of Vaccine - Whole 00:00:00 [facility] Influenza Virus 2016-03-04 Completed Universit y of Vaccine - Whole 00:00:00 [facility] Influenza Virus 2016-03-04 Completed Universit y of Vaccine - Whole 00:00:00 [facility] Influenza Virus 2016-03-04 Completed Universit y of Vaccine - Whole 00:00:00 [facility] Influenza Virus 2016-03-04 Completed Universit y of Vaccine - Whole 00:00:00 [facility] Influenza Virus 2016-03-04 Completed Universit y of Vaccine - Whole 00:00:00 [facility] Influenza Virus 2016-03-04 Completed Universit y of Vaccine - Whole 00:00:00 [facility] Influenza Virus 2016-03-04 Completed Universit y of Vaccine - Whole 00:00:00 [facility] Influenza Virus 2016-03-04 Completed Universit y of Vaccine - Whole 00:00:00 [facility] Influenza Virus 2016-03-04 Completed Universit y of Vaccine - Whole 00:00:00 [facility] Influenza Virus 2016-03-04 Completed Universit y of Vaccine - Whole 00:00:00 [facility] Influenza Virus 2016-03-04 Completed Universit y of Vaccine - Whole 00:00:00 [facility] Influenza Virus 2016-03-04 Completed Universit y of Vaccine - Whole 00:00:00 [facility] Influenza Virus 2016-03-04 Completed Universit y of Vaccine - Whole 00:00:00 [facility] Influenza Virus 2016-03-04 Completed Universit y of Vaccine - Whole 00:00:00 [facility] Influenza Virus 2016-03-04 Completed Universit y of Vaccine - Whole 00:00:00 [facility] Influenza Virus 2016-03-04 Completed Universit y of Vaccine - Whole 00:00:00 [facility] Influenza Virus 2014-02-01 Completed Universit y of Vaccine - Whole 00:00:00 [facility] Influenza Virus 2014-02-01 Completed Universit y of Vaccine - Whole 00:00:00 [facility] Influenza Virus 2014-02-01 Completed Universit y of Vaccine - Whole 00:00:00 [facility] Influenza Virus 2014-02-01 Completed Universit y of Vaccine - Whole 00:00:00 [facility] Influenza Virus 2014-02-01 Completed Universit y of Vaccine - Whole 00:00:00 [facility] Influenza Virus 2014-02-01 Completed Universit y of Vaccine - Whole 00:00:00 [facility] Influenza Virus 2014-02-01 Completed Universit y of Vaccine - Whole 00:00:00 [facility] Influenza Virus 2014-02-01 Completed Universit y of Vaccine - Whole 00:00:00 [facility] Influenza Virus 2014-02-01 Completed Universit y of Vaccine - Whole 00:00:00 [facility] Influenza Virus 2014-02-01 Completed Universit y of Vaccine - Whole 00:00:00 [facility] Influenza Virus 2014-02-01 Completed Universit y of Vaccine - Whole 00:00:00 [facility] Influenza Virus 2014-02-01 Completed Universit y of Vaccine - Whole 00:00:00 [facility] Influenza Virus 2014-02-01 Completed Universit y of Vaccine - Whole 00:00:00 [facility] Influenza Virus 2014-02-01 Completed Universit y of Vaccine - Whole 00:00:00 [facility] Influenza Virus 2014-02-01 Completed Universit y of Vaccine - Whole 00:00:00 [facility] Influenza Virus 2014-02-01 Completed Universit y of Vaccine - Whole 00:00:00 [facility] Influenza Virus 2014-02-01 Completed Universit y of Vaccine - Whole 00:00:00 [facility] Influenza Virus 2014-02-01 Completed Universit y of Vaccine - Whole 00:00:00 [facility] Influenza Virus 2014-02-01 Completed Universit y of Vaccine - Whole 00:00:00 [facility] Influenza Virus 2014-02-01 Completed Universit y of Vaccine - Whole 00:00:00 [facility] Influenza Virus 2014-02-01 Completed Universit y of Vaccine - Whole 00:00:00 [facility] Influenza Virus 2014-02-01 Completed Universit y of Vaccine - Whole 00:00:00 [facility] Influenza Virus 2014-02-01 Completed Universit y of Vaccine - Whole 00:00:00 [facility] Influenza Virus 2014-02-01 Completed Universit y of Vaccine - Whole 00:00:00 [facility] Meningococcal 2012-10-13 Completed University of Oligosaccharide 00:00:00 [facility] (groups A, C, Y and Branc h W-135) conjugate vaccine (MCV4O) TDAP 2012-10-13 Completed University of 00:00:00 [facility] DTAP 2012-10-13 Completed University of 00:00:00 [facility] Meningococcal 2012-10-13 Completed [facility] Oligosaccharide 00:00:00 [place] [facility] (groups A, C, Y and Branc h W-135) conjugate vaccine (MCV4O) TDAP 2012-10-13 Completed University of 00:00:00 [facility] DTAP 2012-10-13 Completed University of 00:00:00 [facility] Meningococcal 2012-10-13 Completed [facility] of Oligosaccharide 00:00:00 [place] [facility] (groups A, C, Y and Branc h W-135) conjugate vaccine (MCV4O) TDAP 2012-10-13 Completed University of 00:00:00 [facility] DTAP 2012-10-13 Completed University of 00:00:00 [facility] Meningococcal 2012-10-13 Completed [facility] Oligosaccharide 00:00:00 [place] [facility] (groups A, C, Y and Branc h W-135) conjugate vaccine (MCV4O) TDAP 2012-10-13 Completed University of 00:00:00 [facility] DTAP 2012-10-13 Completed University of 00:00:00 [facility] Meningococcal 2012-10-13 Completed [facility] of Oligosaccharide 00:00:00 [place] [facility] (groups A, C, Y and Branc h W-135) conjugate vaccine (MCV4O) TDAP 2012-10-13 Completed University of 00:00:00 [facility] DTAP 2012-10-13 Completed University of 00:00:00 [facility] Meningococcal 2012-10-13 Completed [facility] of Oligosaccharide 00:00:00 [place] [facility] (groups A, C, Y and Branc h W-135) conjugate vaccine (MCV4O) TDAP 2012-10-13 Completed University of 00:00:00 [facility] DTAP 2012-10-13 Completed University of 00:00:00 [facility] Meningococcal 2012-10-13 Completed [facility] of Oligosaccharide 00:00:00 [place] [facility] (groups A, C, Y and Branc h W-135) conjugate vaccine (MCV4O) TDAP 2012-10-13 Completed University of 00:00:00 [facility] DTAP 2012-10-13 Completed University of 00:00:00 [facility] Meningococcal 2012-10-13 Completed [facility] of Oligosaccharide 00:00:00 [place] [facility] (groups A, C, Y and Branc h W-135) conjugate vaccine (MCV4O) TDAP 2012-10-13 Completed University of 00:00:00 [facility] DTAP 2012-10-13 Completed University of 00:00:00 [facility] Meningococcal 2012-10-13 Completed [facility] of Oligosaccharide 00:00:00 [place] [facility] (groups A, C, Y and Branc h W-135) conjugate vaccine (MCV4O) TDAP 2012-10-13 Completed University of 00:00:00 [facility] DTAP 2012-10-13 Completed University of 00:00:00 [facility] Meningococcal 2012-10-13 Completed [facility] Oligosaccharide 00:00:00 [place] [facility] (groups A, C, Y and Branc h W-135) conjugate vaccine (MCV4O) TDAP 2012-10-13 Completed University of 00:00:00 [facility] DTAP 2012-10-13 Completed [facility] of 00:00:00 [facility] Meningococcal 2012-10-13 Completed [facility] Oligosaccharide 00:00:00 [place] [facility] (groups A, C, Y and Branc h W-135) conjugate vaccine (MCV4O) TDAP 2012-10-13 Completed University of 00:00:00 [facility] DTAP 2012-10-13 Completed University of 00:00:00 [facility] Meningococcal 2012-10-13 Completed [facility] Oligosaccharide 00:00:00 [place] [facility] (groups A, C, Y and Branc h W-135) conjugate vaccine (MCV4O) TDAP 2012-10-13 Completed University of 00:00:00 [facility] DTAP 2012-10-13 Completed University of 00:00:00 [facility] [place] [facility] Meningococcal 2012-10-13 Completed [facility] of Oligosaccharide 00:00:00 [place] [facility] (groups A, C, Y and Branc h W-135) conjugate vaccine (MCV4O) TDAP 2012-10-13 Completed University of 00:00:00 [facility] DTAP 2012-10-13 Completed University of 00:00:00 [facility] [place] [facility] Meningococcal 2012-10-13 Completed [facility] of Oligosaccharide 00:00:00 [place] [facility] (groups A, C, Y and Branc h W-135) conjugate vaccine (MCV4O) TDAP 2012-10-13 Completed University of 00:00:00 [facility] DTAP 2012-10-13 Completed University of 00:00:00 [facility] Meningococcal 2012-10-13 Completed [facility] of Oligosaccharide 00:00:00 [place] [facility] (groups A, C, Y and Branc h W-135) conjugate vaccine (MCV4O) TDAP 2012-10-13 Completed University of 00:00:00 [facility] [place] [facility] DTAP 2012-10-13 Completed University of 00:00:00 [facility] Meningococcal 2012-10-13 Completed [facility] of Oligosaccharide 00:00:00 [place] [facility] (groups A, C, Y and Branc h W-135) conjugate vaccine (MCV4O) TDAP 2012-10-13 Completed University of 00:00:00 [facility] DTAP 2012-10-13 Completed [facility] of 00:00:00 [facility] Meningococcal 2012-10-13 Completed [facility] Oligosaccharide 00:00:00 [place] [facility] (groups A, C, Y and Branc h W-135) conjugate vaccine (MCV4O) TDAP 2012-10-13 Completed University of 00:00:00 [facility] DTAP 2012-10-13 Completed University of 00:00:00 [facility] Meningococcal 2012-10-13 Completed [facility] of Oligosaccharide 00:00:00 [place] [facility] (groups A, C, Y and Branc h W-135) conjugate vaccine (MCV4O) TDAP 2012-10-13 Completed [facility] of 00:00:00 [facility] DTAP 2012-10-13 Completed [facility] of 00:00:00 [facility] Meningococcal 2012-10-13 Completed [facility] of Oligosaccharide 00:00:00 [place] [facility] (groups A, C, Y and Branc h W-135) conjugate vaccine (MCV4O) TDAP 2012-10-13 Completed University of 00:00:00 [facility] DTAP 2012-10-13 Completed [facility] of 00:00:00 [facility] Meningococcal 2012-10-13 Completed [facility] of Oligosaccharide 00:00:00 [place] [facility] (groups A, C, Y and Branc h W-135) conjugate vaccine (MCV4O) TDAP 2012-10-13 Completed University of 00:00:00 [facility] DTAP 2012-10-13 Completed University of 00:00:00 [facility] Meningococcal 2012-10-13 Completed [facility] of Oligosaccharide 00:00:00 [place] [facility] (groups A, C, Y and Branc h W-135) conjugate vaccine (MCV4O) TDAP 2012-10-13 Completed University of 00:00:00 [facility] DTAP 2012-10-13 Completed [facility] of 00:00:00 [facility] Meningococcal 2012-10-13 Completed [facility] of Oligosaccharide 00:00:00 [place] [facility] (groups A, C, Y and Branc h W-135) conjugate vaccine (MCV4O) TDAP 2012-10-13 Completed University of 00:00:00 [facility] DTAP 2012-10-13 Completed [facility] of 00:00:00 [facility] Meningococcal 2012-10-13 Completed [facility] of Oligosaccharide 00:00:00 [place] [facility] (groups A, C, Y and Branc h W-135) conjugate vaccine (MCV4O) TDAP 2012-10-13 Completed University of 00:00:00 [facility] DTAP 2012-10-13 Completed University of 00:00:00 [facility] Meningococcal 2012-10-13 Completed [facility] of Oligosaccharide 00:00:00 [place] [facility] (groups A, C, Y and Branc h W-135) conjugate vaccine (MCV4O) TDAP 2012-10-13 Completed University of 00:00:00 [facility] DTAP 2012-10-13 Completed [facility] 00:00:00 [facility] Influenza Virus 2011-01-30 Completed Universit y of Vaccine - Whole 00:00:00 [facility] Influenza Virus 2011-01-30 Completed Universit y of Vaccine - Whole 00:00:00 [facility] Influenza Virus 2011-01-30 Completed Universit y of Vaccine - Whole 00:00:00 [facility] Influenza Virus 2011-01-30 Completed Universit y of Vaccine - Whole 00:00:00 [facility] Influenza Virus 2011-01-30 Completed Universit y of Vaccine - Whole 00:00:00 [facility] Influenza Virus 2011-01-30 Completed Universit y of Vaccine - Whole 00:00:00 [facility] Influenza Virus 2011-01-30 Completed Universit y of Vaccine - Whole 00:00:00 [facility] Influenza Virus 2011-01-30 Completed Universit y of Vaccine - Whole 00:00:00 [facility] Influenza Virus 2011-01-30 Completed Universit y of Vaccine - Whole 00:00:00 [facility] Influenza Virus 2011-01-30 Completed Universit y of Vaccine - Whole 00:00:00 [facility] Influenza Virus 2011-01-30 Completed Universit y of Vaccine - Whole 00:00:00 [facility] Influenza Virus 2011-01-30 Completed Universit y of Vaccine - Whole 00:00:00 [facility] Influenza Virus 2011-01-30 Completed Universit y of Vaccine - Whole 00:00:00 [facility] Influenza Virus 2011-01-30 Completed Universit y of Vaccine - Whole 00:00:00 [facility] Influenza Virus 2011-01-30 Completed Universit y of Vaccine - Whole 00:00:00 [facility] Influenza Virus 2011-01-30 Completed Universit y of Vaccine - Whole 00:00:00 [facility] Influenza Virus 2011-01-30 Completed Universit y of Vaccine - Whole 00:00:00 [facility] Influenza Virus 2011-01-30 Completed Universit y of Vaccine - Whole 00:00:00 [facility] Influenza Virus 2011-01-30 Completed Universit y of Vaccine - Whole 00:00:00 [facility] Influenza Virus 2011-01-30 Completed Universit y of Vaccine - Whole 00:00:00 [facility] Influenza Virus 2011-01-30 Completed Universit y of Vaccine - Whole 00:00:00 [facility] Influenza Virus 2011-01-30 Completed Universit y of Vaccine - Whole 00:00:00 [facility] Influenza Virus 2011-01-30 Completed Universit y of Vaccine - Whole 00:00:00 [facility] Influenza Virus 2011-01-30 Completed Universit y of Vaccine - Whole 00:00:00 [facility] Influenza Virus 2010-01-16 Completed Universit y of Vaccine - Whole 00:00:00 [facility] Influenza Virus 2010-01-16 Completed Universit y of Vaccine - Whole 00:00:00 [facility] Influenza Virus 2010-01-16 Completed Universit y of Vaccine - Whole 00:00:00 [facility] Influenza Virus 2010-01-16 Completed Universit y of Vaccine - Whole 00:00:00 [facility] Influenza Virus 2010-01-16 Completed [facility] Vaccine - Whole 00:00:00 [facility] Influenza Virus 2010-01-16 Completed [facility] Vaccine - Whole 00:00:00 [facility] Influenza Virus 2010-01-16 Completed [facility] Vaccine - Whole 00:00:00 [facility] Influenza Virus 2010-01-16 Completed [facility] Vaccine - Whole 00:00:00 [facility] Influenza Virus 2010-01-16 Completed [facility] Vaccine - Whole 00:00:00 [facility] Influenza Virus 2010-01-16 Completed [facility] Vaccine - Whole 00:00:00 [facility] Influenza Virus 2010-01-16 Completed [facility] of Vaccine - Whole 00:00:00 [facility] Influenza Virus 2010-01-16 Completed [facility] Vaccine - Whole 00:00:00 [facility] Influenza Virus 2010-01-16 Completed [facility] of Vaccine - Whole 00:00:00 [facility] Influenza Virus 2010-01-16 Completed [facility] Vaccine - Whole 00:00:00 [facility] Influenza Virus 2010-01-16 Completed [facility] Vaccine - Whole 00:00:00 [facility] Influenza Virus 2010-01-16 Completed [facility] of Vaccine - Whole 00:00:00 [facility] Influenza Virus 2010-01-16 Completed [facility] of Vaccine - Whole 00:00:00 [facility] Influenza Virus 2010-01-16 Completed [facility] of Vaccine - Whole 00:00:00 [facility] Influenza Virus 2010-01-16 Completed [facility] of Vaccine - Whole 00:00:00 [facility] Influenza Virus 2010-01-16 Completed [facility] Vaccine - Whole 00:00:00 [facility] Influenza Virus 2010-01-16 Completed [facility] of Vaccine - Whole 00:00:00 [facility] Influenza Virus 2010-01-16 Completed [facility] of Vaccine - Whole 00:00:00 [facility] Influenza Virus 2010-01-16 Completed [facility] Vaccine - Whole 00:00:00 [facility] Influenza Virus 2010-01-16 Completed [facility] Vaccine - Whole 00:00:00 [facility] Varicella 2009-02-15 Completed University of (varivax)(chicken pox) 00:00:00 [facility] Varicella 2009-02-15 Completed [facility] of (varivax)(chicken pox) 00:00:00 [facility] Varicella 2009-02-15 Completed [facility] (varivax)(chicken pox) 00:00:00 [facility] Varicella 2009-02-15 Completed [facility] (varivax)(chicken pox) 00:00:00 [facility] Varicella 2009-02-15 Completed [facility] (varivax)(chicken pox) 00:00:00 [facility] Varicella 2009-02-15 Completed [facility] (varivax)(chicken pox) 00:00:00 [facility] Varicella 2009-02-15 Completed [facility] (varivax)(chicken pox) 00:00:00 [facility] Varicella 2009-02-15 Completed [facility] (varivax)(chicken pox) 00:00:00 [facility] Varicella 2009-02-15 Completed [facility] (varivax)(chicken pox) 00:00:00 [facility] Varicella 2009-02-15 Completed [facility] (varivax)(chicken pox) 00:00:00 [facility] Varicella 2009-02-15 Completed [facility] of (varivax)(chicken pox) 00:00:00 [facility] Varicella 2009-02-15 Completed [facility] (varivax)(chicken pox) 00:00:00 [facility] Varicella 2009-02-15 Completed [facility] of (varivax)(chicken pox) 00:00:00 [facility] Varicella 2009-02-15 Completed [facility] (varivax)(chicken pox) 00:00:00 [facility] Varicella 2009-02-15 Completed [facility] (varivax)(chicken pox) 00:00:00 [facility] Varicella 2009-02-15 Completed [facility] (varivax)(chicken pox) 00:00:00 [facility] Varicella 2009-02-15 Completed [facility] (varivax)(chicken pox) 00:00:00 [facility] Varicella 2009-02-15 Completed [facility] (varivax)(chicken pox) 00:00:00 [facility] Varicella 2009-02-15 Completed [facility] (varivax)(chicken pox) 00:00:00 [facility] Varicella 2009-02-15 Completed [facility] of (varivax)(chicken pox) 00:00:00 [facility] Varicella 2009-02-15 Completed [facility] of (varivax)(chicken pox) 00:00:00 [facility] Varicella 2009-02-15 Completed [facility] of (varivax)(chicken pox) 00:00:00 [facility] Varicella 2009-02-15 Completed [facility] of (varivax)(chicken pox) 00:00:00 [facility] Varicella 2009-02-15 Completed [facility] (varivax)(chicken pox) 00:00:00 [facility] Influenza Virus 2009-02-01 Completed [facility] Vaccine - Whole 00:00:00 [facility] Influenza Virus 2009-02-01 Completed [facility] of Vaccine - Whole 00:00:00 [facility] Influenza Virus 2009-02-01 Completed [facility] of Vaccine - Whole 00:00:00 [facility] Influenza Virus 2009-02-01 Completed [facility] of Vaccine - Whole 00:00:00 [facility] Influenza Virus 2009-02-01 Completed [facility] of Vaccine - Whole 00:00:00 [facility] Influenza Virus 2009-02-01 Completed [facility] of Vaccine - Whole 00:00:00 [facility] Influenza Virus 2009-02-01 Completed [facility] of Vaccine - Whole 00:00:00 [facility] Influenza Virus 2009-02-01 Completed [facility] of Vaccine - Whole 00:00:00 [facility] Influenza Virus 2009-02-01 Completed [facility] of Vaccine - Whole 00:00:00 [facility] Influenza Virus 2009-02-01 Completed [facility] of Vaccine - Whole 00:00:00 [facility] Influenza Virus 2009-02-01 Completed [facility] of Vaccine - Whole 00:00:00 [facility] Influenza Virus 2009-02-01 Completed [facility] of Vaccine - Whole 00:00:00 [facility] Influenza Virus 2009-02-01 Completed [facility] of Vaccine - Whole 00:00:00 [facility] Influenza Virus 2009-02-01 Completed [facility] of Vaccine - Whole 00:00:00 [facility] Influenza Virus 2009-02-01 Completed [facility] of Vaccine - Whole 00:00:00 [facility] Influenza Virus 2009-02-01 Completed [facility] of Vaccine - Whole 00:00:00 [facility] Influenza Virus 2009-02-01 Completed [facility] of Vaccine - Whole 00:00:00 [facility] Influenza Virus 2009-02-01 Completed [facility] of Vaccine - Whole 00:00:00 [facility] Influenza Virus 2009-02-01 Completed [facility] of Vaccine - Whole 00:00:00 [facility] Influenza Virus 2009-02-01 Completed [facility] of Vaccine - Whole 00:00:00 [facility] Influenza Virus 2009-02-01 Completed [facility] of Vaccine - Whole 00:00:00 [facility] Influenza Virus 2009-02-01 Completed [facility] of Vaccine - Whole 00:00:00 [facility] Influenza Virus 2009-02-01 Completed [facility] of Vaccine - Whole 00:00:00 [facility] Influenza Virus 2009-02-01 Completed [facility] of Vaccine - Whole 00:00:00 [facility] DTAP 2005-09-04 Completed [facility] 00:00:00 [facility] HEPATITIS A 2005-09-04 Completed [facility] of 00:00:00 [facility] MMR 2005-09-04 Completed [facility] of 00:00:00 [facility] Polio (IPV/OPV) 2005-09-04 Completed [facility] 00:00:00 [facility] DTAP 2005-09-04 Completed [facility] 00:00:00 [facility] HEPATITIS A 2005-09-04 Completed [facility] of 00:00:00 [facility] MMR 2005-09-04 Completed [facility] of 00:00:00 [facility] Polio (IPV/OPV) 2005-09-04 Completed [facility] 00:00:00 [facility] DTAP 2005-09-04 Completed [facility] of 00:00:00 [facility] HEPATITIS A 2005-09-04 Completed [facility] of 00:00:00 [facility] MMR 2005-09-04 Completed [facility] of 00:00:00 [facility] Polio (IPV/OPV) 2005-09-04 Completed [facility]it y of 00:00:00 [facility] DTAP 2005-09-04 Completed [facility] of 00:00:00 [facility] HEPATITIS A 2005-09-04 Completed [facility] of 00:00:00 [facility] MMR 2005-09-04 Completed [facility] of 00:00:00 [facility] Polio (IPV/OPV) 2005-09-04 Completed [facility] 00:00:00 [facility] DTAP 2005-09-04 Completed [facility] of 00:00:00 [facility] HEPATITIS A 2005-09-04 Completed [facility] of 00:00:00 [facility] MMR 2005-09-04 Completed [facility] of 00:00:00 [facility] Polio (IPV/OPV) 2005-09-04 Completed [facility] 00:00:00 [facility] DTAP 2005-09-04 Completed [facility] of 00:00:00 [facility] HEPATITIS A 2005-09-04 Completed [facility] of 00:00:00 [facility] MMR 2005-09-04 Completed [facility] of 00:00:00 [facility] Polio (IPV/OPV) 2005-09-04 Completed [facility] 00:00:00 [facility] DTAP 2005-09-04 Completed [facility] of 00:00:00 [facility] HEPATITIS A 2005-09-04 Completed [facility] of 00:00:00 [facility] MMR 2005-09-04 Completed [facility] of 00:00:00 [facility] Polio (IPV/OPV) 2005-09-04 Completed [facility] of 00:00:00 [facility] DTAP 2005-09-04 Completed [facility] of 00:00:00 [facility] HEPATITIS A 2005-09-04 Completed [facility] of 00:00:00 [facility] MMR 2005-09-04 Completed [facility] of 00:00:00 [facility] Polio (IPV/OPV) 2005-09-04 Completed [facility] of 00:00:00 [facility] DTAP 2005-09-04 Completed [facility] of 00:00:00 [facility] HEPATITIS A 2005-09-04 Completed [facility] of 00:00:00 [facility] MMR 2005-09-04 Completed [facility] of 00:00:00 [facility] Polio (IPV/OPV) 2005-09-04 Completed [facility] 00:00:00 [facility] DTAP 2005-09-04 Completed [facility] of 00:00:00 [facility] HEPATITIS A 2005-09-04 Completed [facility] of 00:00:00 [facility] MMR 2005-09-04 Completed [facility] of 00:00:00 [facility] Polio (IPV/OPV) 2005-09-04 Completed [facility] 00:00:00 [facility] DTAP 2005-09-04 Completed [facility] of 00:00:00 [facility] HEPATITIS A 2005-09-04 Completed [facility] of 00:00:00 [facility] MMR 2005-09-04 Completed [facility] of 00:00:00 [facility] Polio (IPV/OPV) 2005-09-04 Completed [facility] 00:00:00 [facility] DTAP 2005-09-04 Completed [facility] of 00:00:00 [facility] HEPATITIS A 2005-09-04 Completed [facility] 00:00:00 [facility] MMR 2005-09-04 Completed [facility] of 00:00:00 [facility] Polio (IPV/OPV) 2005-09-04 Completed [facility] of 00:00:00 [facility] DTAP 2005-09-04 Completed [facility] of 00:00:00 [facility] HEPATITIS A 2005-09-04 Completed [facility] of 00:00:00 [facility] MMR 2005-09-04 Completed [facility] of 00:00:00 [facility] Polio (IPV/OPV) 2005-09-04 Completed [facility] of 00:00:00 [facility] DTAP 2005-09-04 Completed [facility] of 00:00:00 [facility] HEPATITIS A 2005-09-04 Completed [facility] of 00:00:00 [facility] MMR 2005-09-04 Completed [facility] of 00:00:00 [facility] Polio (IPV/OPV) 2005-09-04 Completed [facility] of 00:00:00 [facility] DTAP 2005-09-04 Completed [facility] of 00:00:00 [facility] HEPATITIS A 2005-09-04 Completed [facility] of 00:00:00 [facility] MMR 2005-09-04 Completed [facility] of 00:00:00 [facility] Polio (IPV/OPV) 2005-09-04 Completed [facility] 00:00:00 [facility] DTAP 2005-09-04 Completed [facility] of 00:00:00 [facility] HEPATITIS A 2005-09-04 Completed [facility] of 00:00:00 [facility] MMR 2005-09-04 Completed [facility] of 00:00:00 [facility] Polio (IPV/OPV) 2005-09-04 Completed [facility] of 00:00:00 [facility] DTAP 2005-09-04 Completed [facility] of 00:00:00 [facility] HEPATITIS A 2005-09-04 Completed [facility] of 00:00:00 [facility] MMR 2005-09-04 Completed [facility] of 00:00:00 [facility] Polio (IPV/OPV) 2005-09-04 Completed [facility] of 00:00:00 [facility] DTAP 2005-09-04 Completed [facility] of 00:00:00 [facility] HEPATITIS A 2005-09-04 Completed [facility] of 00:00:00 [facility] MMR 2005-09-04 Completed [facility] of 00:00:00 [facility] Polio (IPV/OPV) 2005-09-04 Completed [facility] of 00:00:00 [facility] DTAP 2005-09-04 Completed [facility] of 00:00:00 [facility] HEPATITIS A 2005-09-04 Completed [facility] of 00:00:00 [facility] MMR 2005-09-04 Completed [facility] of 00:00:00 [facility] Polio (IPV/OPV) 2005-09-04 Completed [facility] 00:00:00 [facility] DTAP 2005-09-04 Completed [facility] of 00:00:00 [facility] HEPATITIS A 2005-09-04 Completed [facility] of 00:00:00 [facility] MMR 2005-09-04 Completed [facility] of 00:00:00 [facility] Polio (IPV/OPV) 2005-09-04 Completed [facility] of 00:00:00 [facility] DTAP 2005-09-04 Completed [facility] of 00:00:00 [facility] HEPATITIS A 2005-09-04 Completed [facility] of 00:00:00 [facility] MMR 2005-09-04 Completed [facility] of 00:00:00 [facility] Polio (IPV/OPV) 2005-09-04 Completed [facility] 00:00:00 [facility] DTAP 2005-09-04 Completed [facility] of 00:00:00 [facility] HEPATITIS A 2005-09-04 Completed [facility] of 00:00:00 [facility] MMR 2005-09-04 Completed [facility] of 00:00:00 [facility] Polio (IPV/OPV) 2005-09-04 Completed [facility] 00:00:00 [facility] DTAP 2005-09-04 Completed [facility] 00:00:00 [facility] HEPATITIS A 2005-09-04 Completed [facility] of 00:00:00 [facility] MMR 2005-09-04 Completed [facility] of 00:00:00 [facility] Polio (IPV/OPV) 2005-09-04 Completed [facility] 00:00:00 [facility] DTAP 2005-09-04 Completed [facility] of 00:00:00 [facility] HEPATITIS A 2005-09-04 Completed [facility] of 00:00:00 [facility] MMR 2005-09-04 Completed [facility] of 00:00:00 [facility] Polio (IPV/OPV) 2005-09-04 Completed [facility] 00:00:00 [facility] HEPATITIS A 2003-11-11 Completed [facility] of 00:00:00 [facility] HEPATITIS A 2003-11-11 Completed [facility] of 00:00:00 [facility] HEPATITIS A 2003-11-11 Completed [facility] of 00:00:00 [facility] HEPATITIS A 2003-11-11 Completed [facility] of 00:00:00 [facility] HEPATITIS A 2003-11-11 Completed [facility] of 00:00:00 [facility] HEPATITIS A 2003-11-11 Completed [facility] of 00:00:00 [facility] HEPATITIS A 2003-11-11 Completed [facility] of 00:00:00 [facility] HEPATITIS A 2003-11-11 Completed [facility] of 00:00:00 [facility] HEPATITIS A 2003-11-11 Completed [facility] 00:00:00 [facility] HEPATITIS A 2003-11-11 Completed [facility] 00:00:00 [facility] HEPATITIS A 2003-11-11 Completed [facility] 00:00:00 [facility] HEPATITIS A 2003-11-11 Completed [facility] 00:00:00 [facility] HEPATITIS A 2003-11-11 Completed [facility] 00:00:00 [facility] HEPATITIS A 2003-11-11 Completed [facility] 00:00:00 [facility] HEPATITIS A 2003-11-11 Completed [facility] of 00:00:00 [facility] HEPATITIS A 2003-11-11 Completed [facility] of 00:00:00 [facility] HEPATITIS A 2003-11-11 Completed [facility] 00:00:00 [facility] HEPATITIS A 2003-11-11 Completed [facility] of 00:00:00 [facility] HEPATITIS A 2003-11-11 Completed [facility] 00:00:00 [facility] HEPATITIS A 2003-11-11 Completed [facility] of 00:00:00 [facility] HEPATITIS A 2003-11-11 Completed [facility] of 00:00:00 [facility] HEPATITIS A 2003-11-11 Completed [facility] of 00:00:00 [facility] HEPATITIS A 2003-11-11 Completed [facility] of 00:00:00 [facility] HEPATITIS A 2003-11-11 Completed [facility] of 00:00:00 [facility] HIB 4 Dose Schedule 2003-08-12 Completed Unive rsity of 00:00:00 [facility] HIB 4 Dose Schedule 2003-08-12 Completed Unive rsity of 00:00:00 [facility] HIB 4 Dose Schedule 2003-08-12 Completed Unive rsity of 00:00:00 [facility] HIB 4 Dose Schedule 2003-08-12 Completed Unive rsity of 00:00:00 [facility] HIB 4 Dose Schedule 2003-08-12 Completed Unive rsity of 00:00:00 [facility] HIB 4 Dose Schedule 2003-08-12 Completed Unive rsity of 00:00:00 [facility] HIB 4 Dose Schedule 2003-08-12 Completed Unive rsity of 00:00:00 [facility] HIB 4 Dose Schedule 2003-08-12 Completed Unive rsity of 00:00:00 [facility] HIB 4 Dose Schedule 2003-08-12 Completed Unive rsity of 00:00:00 [facility] HIB 4 Dose Schedule 2003-08-12 Completed Unive rsity of 00:00:00 [facility] HIB 4 Dose Schedule 2003-08-12 Completed Unive rsity of 00:00:00 [facility] HIB 4 Dose Schedule 2003-08-12 Completed Unive rsity of 00:00:00 [facility] HIB 4 Dose Schedule 2003-08-12 Completed Unive rsity of 00:00:00 [facility] HIB 4 Dose Schedule 2003-08-12 Completed Unive rsity of 00:00:00 [facility] HIB 4 Dose Schedule 2003-08-12 Completed Unive rsity of 00:00:00 [facility] HIB 4 Dose Schedule 2003-08-12 Completed Unive rsity of 00:00:00 [facility] HIB 4 Dose Schedule 2003-08-12 Completed Unive rsity of 00:00:00 [facility] HIB 4 Dose Schedule 2003-08-12 Completed Unive rsity of 00:00:00 [facility] HIB 4 Dose Schedule 2003-08-12 Completed Unive rsity of 00:00:00 [facility] HIB 4 Dose Schedule 2003-08-12 Completed Unive rsity of 00:00:00 [facility] HIB 4 Dose Schedule 2003-08-12 Completed Unive rsity of 00:00:00 [facility] HIB 4 Dose Schedule 2003-08-12 Completed Unive rsity of 00:00:00 [facility] HIB 4 Dose Schedule 2003-08-12 Completed Unive rsity of 00:00:00 [facility] HIB 4 Dose Schedule 2003-08-12 Completed Unive rsity of 00:00:00 [facility] DTAP 2003-02-26 Completed [facility] of 00:00:00 [facility] PPD (TB) 2003-02-26 Completed [facility] of 00:00:00 [facility] Pneumococcal 7 2003-02-26 Completed [facility] of Conjugate, PCV7 00:00:00 [facility] DTAP 2003-02-26 Completed [facility] 00:00:00 [facility] Pneumococcal 13 2003-02-26 Completed Universit y of Conjugate, PCV13 00:00:00 [facility]ical (Prevnar 13) Branch DTAP 2003-02-26 Completed [facility] of 00:00:00 [facility] PPD (TB) 2003-02-26 Completed [facility] of 00:00:00 [facility] Pneumococcal 7 2003-02-26 Completed [facility] Conjugate, PCV7 00:00:00 [facility] DTAP 2003-02-26 Completed [facility] 00:00:00 [facility] Pneumococcal 13 2003-02-26 Completed [facility] Conjugate, PCV13 00:00:00 [facility] DTAP 2003-02-26 Completed [facility] 00:00:00 [facility] PPD (TB) 2003-02-26 Completed [facility] of 00:00:00 [facility] Pneumococcal 7 2003-02-26 Completed [facility] of Conjugate, PCV7 00:00:00 [facility] ([facility]ar[facility] DTAP 2003-02-26 Completed [facility] 00:00:00 [facility] Pneumococcal 13 2003-02-26 Completed [facility] y of Conjugate, PCV13 00:00:00 [facility] (Pre[facility]ar 13) [facility] DTAP 2003-02-26 Completed [facility] of 00:00:00 [facility] PPD (TB) 2003-02-26 Completed [facility] 00:00:00 [facility] Pneumococcal 7 2003-02-26 Completed [facility] Conjugate, PCV7 00:00:00 [facility] DTAP 2003-02-26 Completed [facility] 00:00:00 [facility] Pneumococcal 13 2003-02-26 Completed [facility] of Conjugate, PCV13 00:00:00 [facility] (Pre[facility]ar 13) [facility] DTAP 2003-02-26 Completed [facility] 00:00:00 [facility] PPD (TB) 2003-02-26 Completed [facility] 00:00:00 [facility] Pneumococcal 7 2003-02-26 Completed [facility] Conjugate, PCV7 00:00:00 [facility] DTAP 2003-02-26 Completed [facility] 00:00:00 [facility] Pneumococcal 13 2003-02-26 Completed [facility]it y of Conjugate, PCV13 00:00:00 [facility] (Pre[facility]ar 13) [facility] DTAP 2003-02-26 Completed [facility] 00:00:00 [facility] PPD (TB) 2003-02-26 Completed [facility] 00:00:00 [facility] Pneumococcal 7 2003-02-26 Completed [facility] Conjugate, PCV7 00:00:00 [place] [facility] (Pre[facility] DTAP 2003-02-26 Completed [facility] 00:00:00 [facility] Pneumococcal 13 2003-02-26 Completed [facility] Conjugate, PCV13 00:00:00 [place] [facility] (Pre[facility] 13) [facility] DTAP 2003-02-26 Completed [facility] 00:00:00 [facility] PPD (TB) 2003-02-26 Completed [facility] 00:00:00 [facility] Pneumococcal 7 2003-02-26 Completed [facility] Conjugate, PCV7 00:00:00 [place] [facility] (Pre[facility]ar7) [facility] DTAP 2003-02-26 Completed [facility] 00:00:00 [facility] Pneumococcal 13 2003-02-26 Completed [facility] Conjugate, PCV13 00:00:00 [place] [facility] (Prevnar 13) [facility] DTAP 2003-02-26 Completed [facility] 00:00:00 [facility] PPD (TB) 2003-02-26 Completed [facility] 00:00:00 [facility] Pneumococcal 7 2003-02-26 Completed [facility] Conjugate, PCV7 00:00:00 [facility] (Prevnar7) [facility] DTAP 2003-02-26 Completed [facility] 00:00:00 [facility] Pneumococcal 13 2003-02-26 Completed [facility] Conjugate, PCV13 00:00:00 [facility] (Prevnar 13) [facility] DTAP 2003-02-26 Completed [facility] 00:00:00 [facility] PPD (TB) 2003-02-26 Completed [facility] 00:00:00 [facility] Pneumococcal 7 2003-02-26 Completed [facility] Conjugate, PCV7 00:00:00 [facility] (Pre[facility]ar7) [facility] DTAP 2003-02-26 Completed [facility] 00:00:00 [facility] Pneumococcal 13 2003-02-26 Completed [facility] Conjugate, PCV13 00:00:00 [facility] (Prevnar 13) [facility] DTAP 2003-02-26 Completed [facility] 00:00:00 [facility] PPD (TB) 2003-02-26 Completed [facility] 00:00:00 [facility] Pneumococcal 7 2003-02-26 Completed [facility] Conjugate, PCV7 00:00:00 [facility] (Pre[facility]ar7) [facility] DTAP 2003-02-26 Completed [facility] 00:00:00 [facility] Pneumococcal 13 2003-02-26 Completed [facility] Conjugate, PCV13 00:00:00 [place] [facility] (Prevnar 13) [facility] DTAP 2003-02-26 Completed [facility] 00:00:00 [facility] PPD (TB) 2003-02-26 Completed [facility] 00:00:00 [facility] Pneumococcal 7 2003-02-26 Completed [facility] Conjugate, PCV7 00:00:00 [place] [facility] (Prevnar7) [facility] DTAP 2003-02-26 Completed [facility] 00:00:00 [facility] Pneumococcal 13 2003-02-26 Completed [facility] Conjugate, PCV13 00:00:00 [place] [facility] (Prevnar 13) [facility] DTAP 2003-02-26 Completed [facility] 00:00:00 [facility] PPD (TB) 2003-02-26 Completed [facility] 00:00:00 [facility] Pneumococcal 7 2003-02-26 Completed [facility] Conjugate, PCV7 00:00:00 [place] [facility] (Prevnar7) [facility] DTAP 2003-02-26 Completed [facility] 00:00:00 [facility] Pneumococcal 13 2003-02-26 Completed [facility] Conjugate, PCV13 00:00:00 [place] [facility] (Prevnar 13) [facility] DTAP 2003-02-26 Completed [facility] 00:00:00 [facility] PPD (TB) 2003-02-26 Completed [facility] 00:00:00 [facility] Pneumococcal 7 2003-02-26 Completed [facility] Conjugate, PCV7 00:00:00 [place] [facility] (Prevnar7) [facility] DTAP 2003-02-26 Completed [facility] 00:00:00 [facility] Pneumococcal 13 2003-02-26 Completed [facility] Conjugate, PCV13 00:00:00 [place] [facility] (Prevnar 13) [facility] DTAP 2003-02-26 Completed [facility] 00:00:00 [facility] PPD (TB) 2003-02-26 Completed [facility] 00:00:00 [facility] Pneumococcal 7 2003-02-26 Completed [facility] Conjugate, PCV7 00:00:00 [place] [facility] (Prevnar7) [facility] DTAP 2003-02-26 Completed [facility] 00:00:00 [facility] Pneumococcal 13 2003-02-26 Completed [facility] Conjugate, PCV13 00:00:00 [place] [facility] (Prevnar 13) [facility] DTAP 2003-02-26 Completed [facility] 00:00:00 [facility] PPD (TB) 2003-02-26 Completed [facility] 00:00:00 [facility] Pneumococcal 7 2003-02-26 Completed [facility] Conjugate, PCV7 00:00:00 [place] [facility] (Prevnar7) [facility] DTAP 2003-02-26 Completed [facility] 00:00:00 [facility] Pneumococcal 13 2003-02-26 Completed [facility] Conjugate, PCV13 00:00:00 [place] [facility] (Prevnar 13) [facility] DTAP 2003-02-26 Completed [facility] 00:00:00 [facility] PPD (TB) 2003-02-26 Completed [facility] 00:00:00 [facility] Pneumococcal 7 2003-02-26 Completed [facility] Conjugate, PCV7 00:00:00 [place] [facility] (Prevnar7) [facility] DTAP 2003-02-26 Completed [facility] 00:00:00 [facility] Pneumococcal 13 2003-02-26 Completed [facility] Conjugate, PCV13 00:00:00 [place] [facility] (Prevnar 13) [facility] DTAP 2003-02-26 Completed [facility] 00:00:00 [facility] PPD (TB) 2003-02-26 Completed [facility] 00:00:00 [facility] Pneumococcal 7 2003-02-26 Completed [facility] Conjugate, PCV7 00:00:00 [facility] (Prevnar7) [facility] DTAP 2003-02-26 Completed [facility] 00:00:00 [facility] Pneumococcal 13 2003-02-26 Completed [facility] Conjugate, PCV13 00:00:00 [place] [facility] (Prevnar 13) [facility] DTAP 2003-02-26 Completed [facility] 00:00:00 [facility] PPD (TB) 2003-02-26 Completed [facility] 00:00:00 [facility] Pneumococcal 7 2003-02-26 Completed [facility] Conjugate, PCV7 00:00:00 [facility] (Prevnar7) [facility] DTAP 2003-02-26 Completed [facility] 00:00:00 [facility] Pneumococcal 13 2003-02-26 Completed [facility] Conjugate, PCV13 00:00:00 [place] [facility] (Prevnar 13) [facility] DTAP 2003-02-26 Completed [facility] 00:00:00 [facility] PPD (TB) 2003-02-26 Completed [facility] 00:00:00 [facility] Pneumococcal 7 2003-02-26 Completed [facility] Conjugate, PCV7 00:00:00 [place] [facility] (Prevnar7) [facility] DTAP 2003-02-26 Completed [facility] 00:00:00 [facility] Pneumococcal 13 2003-02-26 Completed [facility] Conjugate, PCV13 00:00:00 [place] [facility] (Prevnar 13) [facility] DTAP 2003-02-26 Completed [facility] 00:00:00 [facility] PPD (TB) 2003-02-26 Completed [facility] 00:00:00 [facility] Pneumococcal 7 2003-02-26 Completed [facility] Conjugate, PCV7 00:00:00 [place] [facility] (Prevnar7) [facility] DTAP 2003-02-26 Completed [facility] 00:00:00 [facility] Pneumococcal 13 2003-02-26 Completed [facility] of Conjugate, PCV13 00:00:00 [facility] dical (Prevnar 13) Branch DTAP 2003-02-26 Completed [facility] 00:00:00 [facility] Pneumococcal 13 2003-02-26 Completed [facility] of Conjugate, PCV13 00:00:00 [facility] dical (Prevnar 13) Branch DTAP 2003-02-26 Completed [facility] 00:00:00 [facility] Pneumococcal 13 2003-02-26 Completed [facility] of Conjugate, PCV13 00:00:00 [facility] dical (Prevnar 13) Branch DTAP 2003-02-26 Completed [facility] 00:00:00 [facility] Pneumococcal 13 2003-02-26 Completed [facility] of Conjugate, PCV13 00:00:00 [facility] dical (Prevnar 13) Branch DTAP 2003-02-26 Completed [facility] 00:00:00 [facility] Pneumococcal 13 2003-02-26 Completed [facility] of Conjugate, PCV13 00:00:00 [facility] dical (Prevnar 13) Branch AP 2003-01-04 Completed [facility] 00:00:00 [facility] Hep B, Adol or Pedi 2003-01-04 Completed Unive rsity of Dosage 00:00:00 [facility] Polio (IPV/OPV) 2003-01-04 Completed [facility] y of 00:00:00 [facility] Pneumococcal 7 2003-01-04 Completed [facility] of Conjugate, PCV7 00:00:00 [facility] ical (Prevnar7) Branch AP 2003-01-04 Completed [facility] 00:00:00 [facility] Hep B, Adol or Pedi 2003-01-04 Completed Unive rsity of Dosage 00:00:00 [facility] Pneumococcal 13 2003-01-04 Completed [facility] of Conjugate, PCV13 00:00:00 [facility] dical (Prevnar 13) Branch Polio (IPV/OPV) 2003-01-04 Completed [facility] 00:00:00 [facility] DTAP 2003-01-04 Completed [facility] 00:00:00 [facility] Hep B, Adol or Pedi 2003-01-04 Completed Unive rsity of Dosage 00:00:00 [facility] Polio (IPV/OPV) 2003-01-04 Completed [facility] of 00:00:00 [facility] Pneumococcal 7 2003-01-04 Completed [facility] Conjugate, PCV7 00:00:00 [place] [facility] (Prevnar7) [facility] DTAP 2003-01-04 Completed [facility] 00:00:00 [facility] Hep B, Adol or Pedi 2003-01-04 Completed Unive rsity of Dosage 00:00:00 [facility] Pneumococcal 13 2003-01-04 Completed [facility] of Conjugate, PCV13 00:00:00 [place] [facility] (Prevnar 13) [facility] Polio (IPV/OPV) 2003-01-04 Completed [facility] y of 00:00:00 [facility] DTAP 2003-01-04 Completed [facility] 00:00:00 [facility] Hep B, Adol or Pedi 2003-01-04 Completed Unive rsity of Dosage 00:00:00 [facility] Polio (IPV/OPV) 2003-01-04 Completed [facility] 00:00:00 [facility] Pneumococcal 7 2003-01-04 Completed [facility] Conjugate, PCV7 00:00:00 [place] [facility] (Prevnar7) [facility] DTAP 2003-01-04 Completed [facility] 00:00:00 [facility] Hep B, Adol or Pedi 2003-01-04 Completed Unive rsity of Dosage 00:00:00 [facility] Pneumococcal 13 2003-01-04 Completed [facility] y of Conjugate, PCV13 00:00:00 [facility] dical (Prevnar 13) Branch Polio (IPV/OPV) 2003-01-04 Completed [facility] 00:00:00 [facility] DTAP 2003-01-04 Completed [facility] 00:00:00 [facility] Hep B, Adol or Pedi 2003-01-04 Completed Unive rsity of Dosage 00:00:00 [facility] Polio (IPV/OPV) 2003-01-04 Completed [facility]it y of 00:00:00 [facility] Pneumococcal 7 2003-01-04 Completed [facility] of Conjugate, PCV7 00:00:00 [place] [facility] (Prevnar7) [facility] DTAP 2003-01-04 Completed [facility] 00:00:00 [facility] Hep B, Adol or Pedi 2003-01-04 Completed Unive rsity of Dosage 00:00:00 [facility] Pneumococcal 13 2003-01-04 Completed [facility] of Conjugate, PCV13 00:00:00 [facility] dical (Prevnar 13) Branch Polio (IPV/OPV) 2003-01-04 Completed [facility] 00:00:00 [facility] DTAP 2003-01-04 Completed [facility] 00:00:00 [facility] Hep B, Adol or Pedi 2003-01-04 Completed [facility]ive rsity of Dosage 00:00:00 [facility] Polio (IPV/OPV) 2003-01-04 Completed [facility] of 00:00:00 [facility] Pneumococcal 7 2003-01-04 Completed [facility] Conjugate, PCV7 00:00:00 [facility] (Prevnar7) [facility] DTAP 2003-01-04 Completed [facility] 00:00:00 [facility] Hep B, Adol or Pedi 2003-01-04 Completed Unive rsity of Dosage 00:00:00 [facility] Pneumococcal 13 2003-01-04 Completed [facility] of Conjugate, PCV13 00:00:00 [facility] dical (Prevnar 13) Branch Polio (IPV/OPV) 2003-01-04 Completed [facility] 00:00:00 [facility] DTAP 2003-01-04 Completed [facility] 00:00:00 [facility] Hep B, Adol or Pedi 2003-01-04 Completed [facility]ive rsity of Dosage 00:00:00 [facility] Polio (IPV/OPV) 2003-01-04 Completed [facility] of 00:00:00 [facility] Pneumococcal 7 2003-01-04 Completed [facility] of Conjugate, PCV7 00:00:00 [facility] ical (Prevnar7) Branch DTAP 2003-01-04 Completed [facility] 00:00:00 [facility] Hep B, Adol or Pedi 2003-01-04 Completed Unive rsity of Dosage 00:00:00 [facility] Pneumococcal 13 2003-01-04 Completed [facility] of Conjugate, PCV13 00:00:00 [facility] dical (Prevnar 13) Branch Polio (IPV/OPV) 2003-01-04 Completed [facility] 00:00:00 [facility] DTAP 2003-01-04 Completed [facility] 00:00:00 [facility] Hep B, Adol or Pedi 2003-01-04 Completed [facility]ive rsity of Dosage 00:00:00 [facility] Polio (IPV/OPV) 2003-01-04 Completed [facility] 00:00:00 [facility] Pneumococcal 7 2003-01-04 Completed [facility] Conjugate, PCV7 00:00:00 [place] [facility] (Prevnar7) [facility] DTAP 2003-01-04 Completed [facility] 00:00:00 [facility] Hep B, Adol or Pedi 2003-01-04 Completed Unive rsity of Dosage 00:00:00 [facility] Pneumococcal 13 2003-01-04 Completed [facility] y of Conjugate, PCV13 00:00:00 [facility] dical (Prevnar 13) Branch Polio (IPV/OPV) 2003-01-04 Completed [facility] 00:00:00 [facility] DTAP 2003-01-04 Completed [facility] 00:00:00 [facility] Hep B, Adol or Pedi 2003-01-04 Completed Unive rsity of Dosage 00:00:00 [facility] Polio (IPV/OPV) 2003-01-04 Completed [facility] 00:00:00 [facility] Pneumococcal 7 2003-01-04 Completed [facility] of Conjugate, PCV7 00:00:00 [facility] ical (Prevnar7) Branch DTAP 2003-01-04 Completed [facility] 00:00:00 [facility] Hep B, Adol or Pedi 2003-01-04 Completed Unive rsity of Dosage 00:00:00 [facility] Pneumococcal 13 2003-01-04 Completed [facility] of Conjugate, PCV13 00:00:00 [facility] dical (Prevnar 13) Branch Polio (IPV/OPV) 2003-01-04 Completed [facility] 00:00:00 [facility] DTAP 2003-01-04 Completed [facility] 00:00:00 [facility] Hep B, Adol or Pedi 2003-01-04 Completed [facility]ive rsity of Dosage 00:00:00 [facility] Polio (IPV/OPV) 2003-01-04 Completed [facility] 00:00:00 [facility] Pneumococcal 7 2003-01-04 Completed [facility] Conjugate, PCV7 00:00:00 [place] [facility] (Prevnar7) [facility] DTAP 2003-01-04 Completed [facility] 00:00:00 [facility] Hep B, Adol or Pedi 2003-01-04 Completed Unive rsity of Dosage 00:00:00 [facility] Pneumococcal 13 2003-01-04 Completed [facility] of Conjugate, PCV13 00:00:00 [facility] dical (Prevnar 13) Branch Polio (IPV/OPV) 2003-01-04 Completed [facility] 00:00:00 [facility] DTAP 2003-01-04 Completed [facility] 00:00:00 [facility] Hep B, Adol or Pedi 2003-01-04 Completed [facility]ive rsity of Dosage 00:00:00 [facility] Polio (IPV/OPV) 2003-01-04 Completed [facility] 00:00:00 [facility] Pneumococcal 7 2003-01-04 Completed [facility] Conjugate, PCV7 00:00:00 [place] [facility] (Prevnar7) [facility] DTAP 2003-01-04 Completed [facility] 00:00:00 [facility] Hep B, Adol or Pedi 2003-01-04 Completed Unive rsity of Dosage 00:00:00 [facility] Pneumococcal 13 2003-01-04 Completed [facility] y of Conjugate, PCV13 00:00:00 [facility] dical (Prevnar 13) Branch Polio (IPV/OPV) 2003-01-04 Completed [facility] 00:00:00 [facility] DTAP 2003-01-04 Completed [facility] 00:00:00 [facility] Hep B, Adol or Pedi 2003-01-04 Completed [facility]ive rsity of Dosage 00:00:00 [facility] Polio (IPV/OPV) 2003-01-04 Completed [facility] 00:00:00 [facility] Pneumococcal 7 2003-01-04 Completed [facility] Conjugate, PCV7 00:00:00 [place] [facility] (Prevnar7) [facility] DTAP 2003-01-04 Completed [facility] 00:00:00 [facility] Hep B, Adol or Pedi 2003-01-04 Completed [facility]ive rsity of Dosage 00:00:00 [facility] Pneumococcal 13 2003-01-04 Completed [facility] y of Conjugate, PCV13 00:00:00 [facility] dical (Prevnar 13) Branch Polio (IPV/OPV) 2003-01-04 Completed [facility] 00:00:00 [facility] DTAP 2003-01-04 Completed [facility] 00:00:00 [facility] Hep B, Adol or Pedi 2003-01-04 Completed [facility]ive rsity of Dosage 00:00:00 [facility] Polio (IPV/OPV) 2003-01-04 Completed [facility] 00:00:00 [facility] Pneumococcal 7 2003-01-04 Completed [facility] Conjugate, PCV7 00:00:00 [place] [facility] (Prevnar7) [facility] DTAP 2003-01-04 Completed [facility] 00:00:00 [facility] Hep B, Adol or Pedi 2003-01-04 Completed [facility]ive rsity of Dosage 00:00:00 [facility] Pneumococcal 13 2003-01-04 Completed [facility] of Conjugate, PCV13 00:00:00 [facility] dical (Prevnar 13) Branch Polio (IPV/OPV) 2003-01-04 Completed [facility] y of 00:00:00 [facility] DTAP 2003-01-04 Completed [facility] 00:00:00 [facility] Hep B, Adol or Pedi 2003-01-04 Completed [facility]ive rsity of Dosage 00:00:00 [facility] Polio (IPV/OPV) 2003-01-04 Completed [facility] 00:00:00 [facility] Pneumococcal 7 2003-01-04 Completed [facility] of Conjugate, PCV7 00:00:00 [place] [facility] (Prevnar7) [facility] DTAP 2003-01-04 Completed [facility] 00:00:00 [facility] Hep B, Adol or Pedi 2003-01-04 Completed [facility]ive rsity of Dosage 00:00:00 [facility] Pneumococcal 13 2003-01-04 Completed [facility] of Conjugate, PCV13 00:00:00 [facility] dical (Prevnar 13) Branch Polio (IPV/OPV) 2003-01-04 Completed [facility] 00:00:00 [facility] DTAP 2003-01-04 Completed [facility] 00:00:00 [facility] Hep B, Adol or Pedi 2003-01-04 Completed [facility]ive rsity of Dosage 00:00:00 [facility] Polio (IPV/OPV) 2003-01-04 Completed [facility] 00:00:00 [facility] Pneumococcal 7 2003-01-04 Completed [facility] of Conjugate, PCV7 00:00:00 [place] [facility] (Prevnar7) [facility] DTAP 2003-01-04 Completed [facility] 00:00:00 [facility] Hep B, Adol or Pedi 2003-01-04 Completed Unive rsity of Dosage 00:00:00 [facility] Pneumococcal 13 2003-01-04 Completed [facility] of Conjugate, PCV13 00:00:00 [place] [facility] (Prevnar 13) [facility] Polio (IPV/OPV) 2003-01-04 Completed [facility] 00:00:00 [facility] DTAP 2003-01-04 Completed [facility] 00:00:00 [facility] Hep B, Adol or Pedi 2003-01-04 Completed [facility]ive rsity of Dosage 00:00:00 [facility] Polio (IPV/OPV) 2003-01-04 Completed [facility] 00:00:00 [facility] Pneumococcal 7 2003-01-04 Completed [facility] Conjugate, PCV7 00:00:00 [facility] (Prevnar7) [facility] DTAP 2003-01-04 Completed [facility] 00:00:00 [facility] Hep B, Adol or Pedi 2003-01-04 Completed [facility]ive rsity of Dosage 00:00:00 [facility] Pneumococcal 13 2003-01-04 Completed [facility] of Conjugate, PCV13 00:00:00 [facility] dical (Prevnar 13) Branch Polio (IPV/OPV) 2003-01-04 Completed [facility] 00:00:00 [facility] DTAP 2003-01-04 Completed [facility] 00:00:00 [facility] Hep B, Adol or Pedi 2003-01-04 Completed [facility] rsity of Dosage 00:00:00 [facility] Polio (IPV/OPV) 2003-01-04 Completed [facility] 00:00:00 [facility] Pneumococcal 7 2003-01-04 Completed [facility] Conjugate, PCV7 00:00:00 [facility] (Prevnar7) [facility] DTAP 2003-01-04 Completed [facility] 00:00:00 [facility] Hep B, Adol or Pedi 2003-01-04 Completed [facility]ive rsity of Dosage 00:00:00 [facility] Pneumococcal 13 2003-01-04 Completed [facility] of Conjugate, PCV13 00:00:00 [facility] dical (Prevnar 13) Branch Polio (IPV/OPV) 2003-01-04 Completed [facility] 00:00:00 [facility] DTAP 2003-01-04 Completed [facility] 00:00:00 [facility] Hep B, Adol or Pedi 2003-01-04 Completed [facility] rs[facility] of Dosage 00:00:00 [facility] Polio (IPV/OPV) 2003-01-04 Completed [facility] 00:00:00 [facility] Pneumococcal 7 2003-01-04 Completed [facility] Conjugate, PCV7 00:00:00 [facility] (Prevnar7) [facility] DTAP 2003-01-04 Completed [facility] 00:00:00 [facility] Hep B, Adol or Pedi 2003-01-04 Completed [facility] rsity of Dosage 00:00:00 [facility] Pneumococcal 13 2003-01-04 Completed [facility] of Conjugate, PCV13 00:00:00 [facility] (Prevnar 13) [facility] Polio (IPV/OPV) 2003-01-04 Completed [facility] 00:00:00 [facility] DTAP 2003-01-04 Completed [facility] 00:00:00 [facility] Hep B, Adol or Pedi 2003-01-04 Completed [facility] rs[facility] of Dosage 00:00:00 [facility] Polio (IPV/OPV) 2003-01-04 Completed [facility] 00:00:00 [facility] Pneumococcal 7 2003-01-04 Completed [facility] Conjugate, PCV7 00:00:00 [facility] (Prevnar7) [facility] DTAP 2003-01-04 Completed [facility] 00:00:00 [facility] Hep B, Adol or Pedi 2003-01-04 Completed [facility] rs[facility] of Dosage 00:00:00 [facility] Pneumococcal 13 2003-01-04 Completed [facility] of Conjugate, PCV13 00:00:00 [facility] dical (Prevnar 13) Branch Polio (IPV/OPV) 2003-01-04 Completed [facility] 00:00:00 [facility] DTAP 2003-01-04 Completed [facility] 00:00:00 [facility] Hep B, Adol or Pedi 2003-01-04 Completed [facility] of Dosage 00:00:00 [facility] Polio (IPV/OPV) 2003-01-04 Completed [facility] 00:00:00 [facility] Pneumococcal 7 2003-01-04 Completed [facility] Conjugate, PCV7 00:00:00 [facility] (Prevnar7) [facility] DTAP 2003-01-04 Completed [facility] 00:00:00 [facility] Hep B, Adol or Pedi 2003-01-04 Completed [facility] of Dosage 00:00:00 [facility] Pneumococcal 13 2003-01-04 Completed [facility] of Conjugate, PCV13 00:00:00 [facility] (Prevnar 13) [facility] Polio (IPV/OPV) 2003-01-04 Completed [facility] 00:00:00 [facility] DTAP 2003-01-04 Completed [facility] 00:00:00 [facility] Hep B, Adol or Pedi 2003-01-04 Completed [facility] of Dosage 00:00:00 [facility] Polio (IPV/OPV) 2003-01-04 Completed [facility] 00:00:00 [facility] Pneumococcal 7 2003-01-04 Completed [facility] Conjugate, PCV7 00:00:00 [facility] (Prevnar7) [facility] DTAP 2003-01-04 Completed [facility] 00:00:00 [facility] Hep B, Adol or Pedi 2003-01-04 Completed [facility] rs[facility] of Dosage 00:00:00 [facility] Pneumococcal 13 2003-01-04 Completed [facility] of Conjugate, PCV13 00:00:00 [facility] dical (Prevnar 13) Branch Polio (IPV/OPV) 2003-01-04 Completed [facility] 00:00:00 [facility] DTAP 2003-01-04 Completed [facility] 00:00:00 [facility] Hep B, Adol or Pedi 2003-01-04 Completed [facility] rs[facility] of Dosage 00:00:00 [facility] Pneumococcal 13 2003-01-04 Completed [facility] of Conjugate, PCV13 00:00:00 [facility] dical (Prevnar 13) Branch Polio (IPV/OPV) 2003-01-04 Completed [facility] 00:00:00 [facility] DTAP 2003-01-04 Completed [facility] 00:00:00 [facility] Hep B, Adol or Pedi 2003-01-04 Completed [facility] of Dosage 00:00:00 [facility] Pneumococcal 13 2003-01-04 Completed [facility] Conjugate, PCV13 00:00:00 [facility] (Prevnar 13) [facility] Polio (IPV/OPV) 2003-01-04 Completed [facility] 00:00:00 [facility] DTAP 2003-01-04 Completed [facility]00 [facility] [facility] Hep B, Adol or Pedi 2003-01-04 Completed [facility] Dosage 00:00:00 [facility] Pneumococcal 13 2003-01-04 Completed [facility] of Conjugate, PCV13 00:00:00 [facility] dical (Prevnar 13) Branch Polio (IPV/OPV) 2003-01-04 Completed [facility] 00:00:00 [facility] DTAP 2003-01-04 Completed [facility] 00:00:00 [facility] Hep B, Adol or Pedi 2003-01-04 Completed [facility] Dosage 00:00:00 [facility] Pneumococcal 13 2003-01-04 Completed [facility] Conjugate, PCV13 00:00:00 [facility] dical (Prevnar 13) Branch Polio (IPV/OPV) 2003-01-04 Completed [facility] 00:00:00 [facility] DTAP 2002-10-30 Completed [facility] 00:00:00 [facility] HIB 4 Dose Schedule 2002-10-30 Completed [facility] 00:00:00 [facility] MMR 2002-10-30 Completed [facility] 00:00:00 [facility] Pneumococcal 7 2002-10-30 Completed [facility] Conjugate, PCV7 00:00:00 [facility] (Pre[facility]ar7) [facility] Varicella 2002-10-30 Completed [facility] (varivax)(chicken pox) 00:00[facility] 00[facility]00 [facility] HIB 4 Dose Schedule 2002-10-30 Completed [facility] 00:00:00 [facility] Pneumococcal 13 2002-10-30 Completed [facility] of Conjugate, PCV13 00:00:00 [facility] dical (Prevnar 13) Branch Varicella 2002-10-30 Completed University of (varivax)(chicken pox) 00:00:00 [facility] DTAP 2002-10-30 Completed [facility] 00:00:00 [facility] HIB 4 Dose Schedule 2002-10-30 Completed [facility] 00:00:00 [facility] MMR 2002-10-30 Completed [facility] 00:00:00 [facility] Pneumococcal 7 2002-10-30 Completed [facility] Conjugate, PCV7 00:00:00 [facility] (Prevnar7) [facility] Varicella 2002-10-30 Completed University of (varivax)(chicken pox) 00:00:00 [facility] DTAP 2002-10-30 Completed [facility] 00:00:00 [facility] HIB 4 Dose Schedule 2002-10-30 Completed [facility] 00:00:00 [facility] Pneumococcal 13 2002-10-30 Completed [facility] Conjugate, PCV13 00:00:00 [facility] (Prevnar 13) [facility] Varicella 2002-10-30 Completed [facility] of (varivax)(chicken pox) 00:00:00 [facility] DTAP 2002-10-30 Completed [facility] 00:00:00 [facility] HIB 4 Dose Schedule 2002-10-30 Completed [facility] 00:00:00 [facility] MMR 2002-10-30 Completed [facility] 00:00:00 [facility] Pneumococcal 7 2002-10-30 Completed [facility] Conjugate, PCV7 00:00:00 [facility] (Prevnar7) [facility] Varicella 2002-10-30 Completed [facility] of (varivax)(chicken pox) 00:00:00 [facility] DTAP 2002-10-30 Completed [facility] 00:00:00 [facility] HIB 4 Dose Schedule 2002-10-30 Completed [facility] 00:00:00 [facility] Pneumococcal 13 2002-10-30 Completed [facility] of Conjugate, PCV13 00:00:00 [facility] dical (Prevnar 13) Branch Varicella 2002-10-30 Completed University of (varivax)(chicken pox) 00:00:00 [facility] DTAP 2002-10-30 Completed [facility] 00:00:00 [facility] HIB 4 Dose Schedule 2002-10-30 Completed [facility] 00:00:00 [facility] MMR 2002-10-30 Completed [facility] 00:00:00 [facility] Pneumococcal 7 2002-10-30 Completed [facility] Conjugate, PCV7 00:00:00 [facility] (Prevnar7) [facility] Varicella 2002-10-30 Completed [facility] of (varivax)(chicken pox) 00:00:00 [facility] DTAP 2002-10-30 Completed [facility] 00:00:00 [facility] HIB 4 Dose Schedule 2002-10-30 Completed [facility] 00:00:00 [facility] Pneumococcal 13 2002-10-30 Completed [facility] Conjugate, PCV13 00:00:00 [facility] (Prevnar 13) [facility] Varicella 2002-10-30 Completed [facility] of (varivax)(chicken pox) 00:00:00 [facility] DTAP 2002-10-30 Completed [facility] 00:00:00 [facility] HIB 4 Dose Schedule 2002-10-30 Completed [facility] 00:00:00 [facility] MMR 2002-10-30 Completed [facility] of 00:00:00 [facility] Pneumococcal 7 2002-10-30 Completed [facility] of Conjugate, PCV7 00:00:00 [facility] (Prevnar7) [facility] Varicella 2002-10-30 Completed University of (varivax)(chicken pox) 00:00:00 [facility] DTAP 2002-10-30 Completed [facility] 00:00:00 [facility] HIB 4 Dose Schedule 2002-10-30 Completed [facility] of 00:00:00 [facility] Pneumococcal 13 2002-10-30 Completed [facility] of Conjugate, PCV13 00:00:00 [facility] dical (Prevnar 13) Branch Varicella 2002-10-30 Completed University of (varivax)(chicken pox) 00:00:00 [facility] DTAP 2002-10-30 Completed [facility] of 00:00:00 [facility] HIB 4 Dose Schedule 2002-10-30 Completed [facility] 00:00:00 [facility] MMR 2002-10-30 Completed [facility] 00:00:00 [facility] Pneumococcal 7 2002-10-30 Completed [facility] Conjugate, PCV7 00:00:00 [facility] (Prevnar7) [facility] Varicella 2002-10-30 Completed [facility] of (varivax)(chicken pox) 00:00:00 [facility] DTAP 2002-10-30 Completed [facility] 00:00:00 [facility] HIB 4 Dose Schedule 2002-10-30 Completed [facility] 00:00:00 [facility] Pneumococcal 13 2002-10-30 Completed [facility] Conjugate, PCV13 00:00:00 [facility] (Prevnar 13) [facility] Varicella 2002-10-30 Completed [facility] of (varivax)(chicken pox) 00:00:00 [facility] DTAP 2002-10-30 Completed [facility] 00:00:00 [facility] HIB 4 Dose Schedule 2002-10-30 Completed [facility] 00:00:00 [facility] MMR 2002-10-30 Completed [facility] 00:00:00 [facility] Pneumococcal 7 2002-10-30 Completed [facility] Conjugate, PCV7 00:00:00 [facility] (Prevnar7) [facility] Varicella 2002-10-30 Completed [facility] of (varivax)(chicken pox) 00:00:00 [facility] DTAP 2002-10-30 Completed [facility] 00:00:00 [facility] HIB 4 Dose Schedule 2002-10-30 Completed [facility] of 00:00:00 [facility] Pneumococcal 13 2002-10-30 Completed [facility] Conjugate, PCV13 00:00:00 [facility] (Prevnar 13) [facility] Varicella 2002-10-30 Completed [facility] of (varivax)(chicken pox) 00:00:00 [facility] DTAP 2002-10-30 Completed [facility] 00:00:00 [facility] HIB 4 Dose Schedule 2002-10-30 Completed [facility] 00:00:00 [facility] MMR 2002-10-30 Completed [facility] 00:00:00 [facility] Pneumococcal 7 2002-10-30 Completed [facility] of Conjugate, PCV7 00:00:00 [facility] (Prevnar7) [facility] Varicella 2002-10-30 Completed [facility] of (varivax)(chicken pox) 00:00:00 [facility] DTAP 2002-10-30 Completed [facility] 00:00:00 [facility] HIB 4 Dose Schedule 2002-10-30 Completed [facility] 00:00:00 [facility] Pneumococcal 13 2002-10-30 Completed [facility] Conjugate, PCV13 00:00:00 [facility] (Prevnar 13) [facility] Varicella 2002-10-30 Completed [facility] of (varivax)(chicken pox) 00:00:00 [facility] DTAP 2002-10-30 Completed [facility] 00:00:00 [facility] HIB 4 Dose Schedule 2002-10-30 Completed [facility] 00:00:00 [facility] MMR 2002-10-30 Completed [facility] 00:00:00 [facility] Pneumococcal 7 2002-10-30 Completed [facility] of Conjugate, PCV7 00:00:00 [facility] (Prevnar7) [facility] Varicella 2002-10-30 Completed [facility] of (varivax)(chicken pox) 00:00:00 [facility] DTAP 2002-10-30 Completed [facility] 00:00:00 [facility] HIB 4 Dose Schedule 2002-10-30 Completed [facility] of 00:00:00 [facility] Pneumococcal 13 2002-10-30 Completed [facility] of Conjugate, PCV13 00:00:00 [facility] dical (Prevnar 13) Branch Varicella 2002-10-30 Completed University of (varivax)(chicken pox) 00:00:00 [facility] DTAP 2002-10-30 Completed [facility] 00:00:00 [facility] HIB 4 Dose Schedule 2002-10-30 Completed [facility] 00:00:00 [facility] MMR 2002-10-30 Completed [facility] of 00:00:00 [facility] Pneumococcal 7 2002-10-30 Completed [facility] of Conjugate, PCV7 00:00:00 [facility] (Prevnar7) [facility] Varicella 2002-10-30 Completed [facility] of (varivax)(chicken pox) 00:00:00 [facility] DTAP 2002-10-30 Completed [facility] of 00:00:00 [facility] HIB 4 Dose Schedule 2002-10-30 Completed [facility] of 00:00:00 [facility] Pneumococcal 13 2002-10-30 Completed [facility] of Conjugate, PCV13 00:00:00 [facility] dical (Prevnar 13) Branch Varicella 2002-10-30 Completed University of (varivax)(chicken pox) 00:00:00 [facility] DTAP 2002-10-30 Completed [facility] of 00:00:00 [facility] HIB 4 Dose Schedule 2002-10-30 Completed [facility] 00:00:00 [facility] MMR 2002-10-30 Completed [facility] 00:00:00 [facility] Pneumococcal 7 2002-10-30 Completed [facility] of Conjugate, PCV7 00:00:00 [facility] (Prevnar7) [facility] Varicella 2002-10-30 Completed [facility] of (varivax)(chicken pox) 00:00:00 [facility] DTAP 2002-10-30 Completed [facility] of 00:00:00 [facility] HIB 4 Dose Schedule 2002-10-30 Completed [facility] 00:00:00 [facility] Pneumococcal 13 2002-10-30 Completed [facility] Conjugate, PCV13 00:00:00 [facility] (Prevnar 13) [facility] Varicella 2002-10-30 Completed [facility] of (varivax)(chicken pox) 00:00:00 [facility] DTAP 2002-10-30 Completed [facility] 00:00:00 [facility] HIB 4 Dose Schedule 2002-10-30 Completed [facility] 00:00:00 [facility] MMR 2002-10-30 Completed [facility] 00:00:00 [facility] Pneumococcal 7 2002-10-30 Completed [facility] of Conjugate, PCV7 00:00:00 [facility] (Prevnar7) [facility] Varicella 2002-10-30 Completed [facility] of (varivax)(chicken pox) 00:00:00 [facility] DTAP 2002-10-30 Completed [facility] 00:00:00 [facility] HIB 4 Dose Schedule 2002-10-30 Completed [facility] of 00:00:00 [facility] Pneumococcal 13 2002-10-30 Completed [facility] of Conjugate, PCV13 00:00:00 [facility] dical (Prevnar 13) Branch Varicella 2002-10-30 Completed University of (varivax)(chicken pox) 00:00:00 [facility] DTAP 2002-10-30 Completed [facility] of 00:00:00 [facility] HIB 4 Dose Schedule 2002-10-30 Completed [facility] 00:00:00 [facility] MMR 2002-10-30 Completed [facility] 00:00:00 [facility] Pneumococcal 7 2002-10-30 Completed [facility] Conjugate, PCV7 00:00:00 [facility] (Prevnar7) [facility] Varicella 2002-10-30 Completed [facility] of (varivax)(chicken pox) 00:00:00 [facility] DTAP 2002-10-30 Completed [facility] 00:00:00 [facility] HIB 4 Dose Schedule 2002-10-30 Completed [facility] of 00:00:00 [facility] Pneumococcal 13 2002-10-30 Completed [facility] Conjugate, PCV13 00:00:00 [facility] (Prevnar 13) [facility] Varicella 2002-10-30 Completed [facility] of (varivax)(chicken pox) 00:00:00 [facility] DTAP 2002-10-30 Completed [facility] 00:00:00 [facility] HIB 4 Dose Schedule 2002-10-30 Completed [facility] 00:00:00 [facility] MMR 2002-10-30 Completed [facility] 00:00:00 [facility] Pneumococcal 7 2002-10-30 Completed [facility] of Conjugate, PCV7 00:00:00 [facility] (Prevnar7) [facility] Varicella 2002-10-30 Completed [facility] of (varivax)(chicken pox) 00:00:00 [facility] DTAP 2002-10-30 Completed [facility] of 00:00:00 [facility] HIB 4 Dose Schedule 2002-10-30 Completed [facility] of 00:00:00 [facility] Pneumococcal 13 2002-10-30 Completed [facility] of Conjugate, PCV13 00:00:00 [facility] dical (Prevnar 13) Branch Varicella 2002-10-30 Completed [facility] (varivax)(chicken pox) 00:00[facility] 00:[facility]:00 [facility] HIB 4 Dose Schedule 2002-10-30 Completed [facility] 00:00:00 [facility] MMR 2002-10-30 Completed [facility] 00:00:00 [facility] Pneumococcal 7 2002-10-30 Completed [facility] Conjugate, PCV7 00:00:00 [facility] (Prevnar7) [facility] Varicella 2002-10-30 Completed [facility] of (varivax)(chicken pox) 00:00:00 [facility] DTAP 2002-10-30 Completed [facility] 00:00:00 [facility] HIB 4 Dose Schedule 2002-10-30 Completed [facility] of 00:00:00 [facility] Pneumococcal 13 2002-10-30 Completed [facility] of Conjugate, PCV13 00:00:00 [facility] dical (Prevnar 13) Branch Varicella 2002-10-30 Completed [facility] of (varivax)(chicken pox) 00:00:00 [facility] DTAP 2002-10-30 Completed [facility] 00:00:00 [facility] HIB 4 Dose Schedule 2002-10-30 Completed [facility] 00:00:00 [facility] MMR 2002-10-30 Completed [facility] 00:00:00 [facility] Pneumococcal 7 2002-10-30 Completed [facility] Conjugate, PCV7 00:00:00 [facility] (Prevnar7) [facility] Varicella 2002-10-30 Completed [facility] of (varivax)(chicken pox) 00:00:00 [facility] DTAP 2002-10-30 Completed [facility] 00:00:00 [facility] HIB 4 Dose Schedule 2002-10-30 Completed [facility] 00:00:00 [facility] Pneumococcal 13 2002-10-30 Completed [facility] of Conjugate, PCV13 00:00:00 [facility] dical (Prevnar 13) Branch Varicella 2002-10-30 Completed [facility] of (varivax)(chicken pox) 00:00:00 [facility] DTAP 2002-10-30 Completed [facility] 00:00:00 [facility] HIB 4 Dose Schedule 2002-10-30 Completed [facility] 00:00:00 [facility] MMR 2002-10-30 Completed [facility] 00:00:00 [facility] Pneumococcal 7 2002-10-30 Completed [facility] Conjugate, PCV7 00:00:00 [facility] (Prevnar7) [facility] Varicella 2002-10-30 Completed [facility] of (varivax)(chicken pox) 00:00:00 [facility] DTAP 2002-10-30 Completed [facility] 00:00:00 [facility] HIB 4 Dose Schedule 2002-10-30 Completed [facility] 00:00:00 [facility] Pneumococcal 13 2002-10-30 Completed [facility] of Conjugate, PCV13 00:00:00 [facility] dical (Prevnar 13) Branch Varicella 2002-10-30 Completed [facility] of (varivax)(chicken pox) 00:00:00 [facility] DTAP 2002-10-30 Completed [facility] 00:00:00 [facility] HIB 4 Dose Schedule 2002-10-30 Completed [facility] 00:00:00 [facility] MMR 2002-10-30 Completed [facility] 00:00:00 [facility] Pneumococcal 7 2002-10-30 Completed [facility] Conjugate, PCV7 00:00:00 [facility] (Prevnar7) [facility] Varicella 2002-10-30 Completed [facility] of (varivax)(chicken pox) 00:00:00 [facility] DTAP 2002-10-30 Completed [facility] 00:00:00 [facility] HIB 4 Dose Schedule 2002-10-30 Completed [facility] 00:00:00 [facility] Pneumococcal 13 2002-10-30 Completed [facility] Conjugate, PCV13 00:00:00 [facility] (Prevnar 13) [facility] Varicella 2002-10-30 Completed [facility] of (varivax)(chicken pox) 00:00:00 [facility] DTAP 2002-10-30 Completed [facility] 00:00:00 [facility] HIB 4 Dose Schedule 2002-10-30 Completed [facility] 00:00:00 [facility] MMR 2002-10-30 Completed [facility] 00:00:00 [facility] Pneumococcal 7 2002-10-30 Completed [facility] Conjugate, PCV7 00:00:00 [facility] (Prevnar7) [facility] Varicella 2002-10-30 Completed [facility] of (varivax)(chicken pox) 00:00:00 [facility] DTAP 2002-10-30 Completed [facility] 00:00:00 [facility] HIB 4 Dose Schedule 2002-10-30 Completed [facility] 00:00:00 [facility] Pneumococcal 13 2002-10-30 Completed [facility] of Conjugate, PCV13 00:00:00 [facility] dical (Prevnar 13) Branch Varicella 2002-10-30 Completed [facility] of (varivax)(chicken pox) 00:00:00 [facility] DTAP 2002-10-30 Completed [facility] 00:00:00 [facility] HIB 4 Dose Schedule 2002-10-30 Completed [facility] 00:00:00 [facility] MMR 2002-10-30 Completed [facility] 00:00:00 [facility] Pneumococcal 7 2002-10-30 Completed [facility] Conjugate, PCV7 00:00:00 [facility] (Prevnar7) [facility] Varicella 2002-10-30 Completed [facility] of (varivax)(chicken pox) 00:00:00 [facility] DTAP 2002-10-30 Completed [facility] 00:00:00 [facility] HIB 4 Dose Schedule 2002-10-30 Completed [facility] 00:00:00 [facility] Pneumococcal 13 2002-10-30 Completed [facility] Conjugate, PCV13 00:00:00 [facility] (Prevnar 13) [facility] Varicella 2002-10-30 Completed [facility] of (varivax)(chicken pox) 00:00:00 [facility] DTAP 2002-10-30 Completed [facility] 00:00:00 [facility] HIB 4 Dose Schedule 2002-10-30 Completed [facility] 00:00:00 [facility] Pneumococcal 13 2002-10-30 Completed [facility] of Conjugate, PCV13 00:00:00 [facility]ical (Prevnar 13) Branch Varicella 2002-10-30 Completed [facility] of (varivax)(chicken pox) 00:00:00 [facility] DTAP 2002-10-30 Completed [facility] 00:00:00 [facility] HIB 4 Dose Schedule 2002-10-30 Completed [facility] 00:00:00 [facility] Pneumococcal 13 2002-10-30 Completed [facility] of Conjugate, PCV13 00:00:00 [facility]ical (Prevnar 13) Branch Varicella 2002-10-30 Completed [facility] of (varivax)(chicken pox) 00:00:00 [facility] DTAP 2002-10-30 Completed [facility] 00:00:00 [facility] HIB 4 Dose Schedule 2002-10-30 Completed [facility] 00:00:00 [facility] Pneumococcal 13 2002-10-30 Completed [facility] of Conjugate, PCV13 00:00:00 [facility] (Prevnar 13) Branch Varicella 2002-10-30 Completed [facility] of (varivax)(chicken pox) 00:00:00 [facility] DTAP 2002-10-30 Completed [facility] 00:00:00 [facility] HIB 4 Dose Schedule 2002-10-30 Completed [facility] 00:00:00 [facility] Pneumococcal 13 2002-10-30 Completed [facility] of Conjugate, PCV13 00:00:00 [facility] dical (Prevnar 13) Branch Varicella 2002-10-30 Completed [facility] of (varivax)(chicken pox) 00:00:00 [facility] MMR 2002-10-25 Completed [facility] 00:00:00 [facility] MMR 2002-10-25 Completed [facility] 00:00:00 [facility] MMR 2002-10-25 Completed [facility] 00:00:00 [facility] MMR 2002-10-25 Completed [facility] 00:00:00 [facility] MMR 2002-10-25 Completed [facility] 00:00:00 [facility] MMR 2002-10-25 Completed [facility] 00:00:00 [facility] MMR 2002-10-25 Completed University of 00:00:00 [facility] MMR 2002-10-25 Completed University of 00:00:00 [facility] MMR 2002-10-25 Completed [facility] 00:00:00 [facility] MMR 2002-10-25 Completed [facility] of 00:00:00 [facility] MMR 2002-10-25 Completed [facility] of 00:00:00 [facility] MMR 2002-10-25 Completed [facility] 00:00:00 [facility] MMR 2002-10-25 Completed [facility] 00:00:00 [facility] MMR 2002-10-25 Completed [facility] 00:00:00 [facility] MMR 2002-10-25 Completed [facility] of 00:00:00 [facility] MMR 2002-10-25 Completed [facility] of 00:00:00 [facility] MMR 2002-10-25 Completed [facility] of 00:00:00 [facility] MMR 2002-10-25 Completed [facility] of 00:00:00 [facility] MMR 2002-10-25 Completed [facility] of 00:00:00 [facility] MMR 2002-10-25 Completed [facility] of 00:00:00 [facility] MMR 2002-10-25 Completed [facility] of 00:00:00 [facility] MMR 2002-10-25 Completed [facility] of 00:00:00 [facility] MMR 2002-10-25 Completed [facility] of 00:00:00 [facility] MMR 2002-10-25 Completed [facility] 00:00:00 [facility] DTAP 2002-06-09 Completed [facility] 00:00:00 [facility] HIB 4 Dose Schedule 2002-06-09 Completed [facility] 00:00:00 [facility] Polio (IPV/OPV) 2002-06-09 Completed [facility] 00:00:00 [facility] DTAP 2002-06-09 Completed [facility] 00:00:00 [facility] HIB 4 Dose Schedule 2002-06-09 Completed [facility] 00:00:00 [facility] Polio (IPV/OPV) 2002-06-09 Completed [facility] 00:00:00 [facility] DTAP 2002-06-09 Completed [facility] 00:00:00 [facility] HIB 4 Dose Schedule 2002-06-09 Completed [facility] 00:00:00 [facility] Polio (IPV/OPV) 2002-06-09 Completed [facility] 00:00:00 [facility] DTAP 2002-06-09 Completed [facility] 00:00:00 [facility] HIB 4 Dose Schedule 2002-06-09 Completed [facility] 00:00:00 [facility] Polio (IPV/OPV) 2002-06-09 Completed [facility] 00:00:00 [facility] DTAP 2002-06-09 Completed [facility] 00:00:00 [facility] HIB 4 Dose Schedule 2002-06-09 Completed [facility] 00:00:00 [facility] Polio (IPV/OPV) 2002-06-09 Completed [facility]00 [facility] DTAP 2002-06-09 Completed [facility] 00:00:00 [facility] HIB 4 Dose Schedule 2002-06-09 Completed [facility] 00:00:00 [facility] Polio (IPV/OPV) 2002-06-09 Completed [facility] 00:00:00 [facility] DTAP 2002-06-09 Completed [facility] 00:00:00 [facility] HIB 4 Dose Schedule 2002-06-09 Completed [facility] 00:00:00 [facility] Polio (IPV/OPV) 2002-06-09 Completed [facility] 00:00:00 [facility] DTAP 2002-06-09 Completed [facility] 00:00:00 [facility] HIB 4 Dose Schedule 2002-06-09 Completed [facility] 00:00:00 [facility] Polio (IPV/OPV) 2002-06-09 Completed [facility] 00:00:00 [facility] DTAP 2002-06-09 Completed [facility] 00:00:00 [facility] HIB 4 Dose Schedule 2002-06-09 Completed [facility] 00:00:00 [facility] Polio (IPV/OPV) 2002-06-09 Completed [facility] 00:00:00 [facility] DTAP 2002-06-09 Completed [facility] 00[facility]00:00 [facility] HIB 4 Dose Schedule 2002-06-09 Completed [facility] 00:00:00 [facility] Polio (IPV/OPV) 2002-06-09 Completed [facility] 00:00:00 [facility] DTAP 2002-06-09 Completed [facility] 00:00:00 [facility] HIB 4 Dose Schedule 2002-06-09 Completed [facility] 00:00:00 [facility] Polio (IPV/OPV) 2002-06-09 Completed [facility] 00:00:00 [facility] DTAP 2002-06-09 Completed [facility] 00:00:00 [facility] HIB 4 Dose Schedule 2002-06-09 Completed [facility] 00:00:00 [facility] Polio (IPV/OPV) 2002-06-09 Completed [facility] 00:00:00 [facility] DTAP 2002-06-09 Completed [facility] 00:00:00 [facility] HIB 4 Dose Schedule 2002-06-09 Completed [facility] 00:00:00 [facility] Polio (IPV/OPV) 2002-06-09 Completed [facility] 00:00:00 [facility] DTAP 2002-06-09 Completed [facility] 00:00:00 [facility] HIB 4 Dose Schedule 2002-06-09 Completed [facility] 00:00:00 [facility] Polio (IPV/OPV) 2002-06-09 Completed [facility] 00:00:00 [facility] DTAP 2002-06-09 Completed [facility] 00:00:00 [facility] HIB 4 Dose Schedule 2002-06-09 Completed [facility] 00:00:00 [facility] Polio (IPV/OPV) 2002-06-09 Completed [facility] 00:00:00 [facility] DTAP 2002-06-09 Completed [facility] 00:00:00 [facility] HIB 4 Dose Schedule 2002-06-09 Completed [facility] 00:00:00 [facility] Polio (IPV/OPV) 2002-06-09 Completed [facility] 00:00:00 [facility] DTAP 2002-06-09 Completed [facility] 00:00:00 [facility] HIB 4 Dose Schedule 2002-06-09 Completed [facility] 00:00:00 [facility] Polio (IPV/OPV) 2002-06-09 Completed [facility] 00:00:00 [facility] DTAP 2002-06-09 Completed [facility] 00:00:00 [facility] HIB 4 Dose Schedule 2002-06-09 Completed [facility] 00:00:00 [facility] Polio (IPV/OPV) 2002-06-09 Completed [facility] 00:00:00 [facility] DTAP 2002-06-09 Completed [facility] 00:00:00 [facility] HIB 4 Dose Schedule 2002-06-09 Completed [facility] 00:00:00 [facility] Polio (IPV/OPV) 2002-06-09 Completed [facility] 00:00:00 [facility] DTAP 2002-06-09 Completed [facility] 00:00:00 [facility] HIB 4 Dose Schedule 2002-06-09 Completed [facility] 00:00:00 [facility] Polio (IPV/OPV) 2002-06-09 Completed [facility] 00:00:00 [facility] DTAP 2002-06-09 Completed [facility] 00:00:00 [facility] HIB 4 Dose Schedule 2002-06-09 Completed [facility] 00:00:00 [facility] Polio (IPV/OPV) 2002-06-09 Completed [facility] 00:00:00 [facility] DTAP 2002-06-09 Completed [facility] 00:00:00 [facility] HIB 4 Dose Schedule 2002-06-09 Completed [facility] 00:00:00 [facility] Polio (IPV/OPV) 2002-06-09 Completed [facility] 00:00:00 [facility] DTAP 2002-06-09 Completed [facility] 00:00:00 [facility] HIB 4 Dose Schedule 2002-06-09 Completed [facility] 00:00:00 [facility] Polio (IPV/OPV) 2002-06-09 Completed [facility] 00:00:00 [facility] DTAP 2002-06-09 Completed [facility] 00:00:00 [facility] HIB 4 Dose Schedule 2002-06-09 Completed [facility] 00:00:00 [facility] Polio (IPV/OPV) 2002-06-09 Completed [facility] 00:00:00 [facility] DTAP 2002-06-09 Completed [facility] 00:00:00 [facility] HIB 4 Dose Schedule 2002-06-09 Completed [facility] 00:00:00 [facility] Polio (IPV/OPV) 2002-06-09 Completed [facility] 00:00:00 [facility] DTAP 2002-06-09 Completed [facility] 00:00:00 [facility] HIB 4 Dose Schedule 2002-06-09 Completed [facility] 00:00:00 [facility] Polio (IPV/OPV) 2002-06-09 Completed [facility] 00:00:00 [facility] DTAP 2002-06-09 Completed [facility] 00:00:00 [facility] HIB 4 Dose Schedule 2002-06-09 Completed [facility] 00:00:00 [facility] Polio (IPV/OPV) 2002-06-09 Completed [facility] 00:00:00 [facility] DTAP 2002-06-09 Completed [facility] 00:00:00 [facility] HIB 4 Dose Schedule 2002-06-09 Completed [facility] 00:00:00 [facility] Polio (IPV/OPV) 2002-06-09 Completed [facility] 00:00:00 [facility] DTAP 2002-06-09 Completed [facility] 00:00:00 [facility] HIB 4 Dose Schedule 2002-06-09 Completed [facility] 00:00:00 [facility] Polio (IPV/OPV) 2002-06-09 Completed [facility] 00:00:00 [facility] DTAP 2002-06-09 Completed [facility] 00:00:00 [facility] HIB 4 Dose Schedule 2002-06-09 Completed [facility] 00[facility]00:00 [facility] Polio (IPV/OPV) 2002-06-09 Completed [facility] 00:00:00 [facility] DTAP 2002-06-09 Completed [facility] 00:00:00 [facility] HIB 4 Dose Schedule 2002-06-09 Completed [facility] 00:00:00 [facility] Polio (IPV/OPV) 2002-06-09 Completed [facility] 00:00:00 [facility] DTAP 2002-06-09 Completed [facility] 00:00:00 [facility] HIB 4 Dose Schedule 2002-06-09 Completed [facility] 00:00:00 [facility] Polio (IPV/OPV) 2002-06-09 Completed [facility] 00:00:00 [facility] DTAP 2002-06-09 Completed [facility] 00:00:00 [facility] HIB 4 Dose Schedule 2002-06-09 Completed [facility] 00:00:00 [facility] Polio (IPV/OPV) 2002-06-09 Completed [facility] 00:00:00 [facility] DTAP 2002-06-09 Completed [facility] 00:00:00 [facility] HIB 4 Dose Schedule 2002-06-09 Completed [facility] 00:00:00 [facility] Polio (IPV/OPV) 2002-06-09 Completed [facility] 00:00:00 [facility] DTAP 2002-06-09 Completed [facility] 00:00:00 [facility] HIB 4 Dose Schedule 2002-06-09 Completed [facility] 00:00:00 [facility] Polio (IPV/OPV) 2002-06-09 Completed [facility] 00:00:00 [facility] DTAP 2002-06-09 Completed [facility] 00:00:00 [facility] HIB 4 Dose Schedule 2002-06-09 Completed [facility] 00:00:00 [facility] Polio (IPV/OPV) 2002-06-09 Completed [facility] 00:00:00 [facility] DTAP 2002-06-09 Completed [facility] 00:00:00 [facility] HIB 4 Dose Schedule 2002-06-09 Completed [facility] 00:00:00 [facility] Polio (IPV/OPV) 2002-06-09 Completed [facility] 00:00:00 [facility] DTAP 2002-06-09 Completed [facility] 00:00:00 [facility] HIB 4 Dose Schedule 2002-06-09 Completed [facility] 00:00:00 [facility] Polio (IPV/OPV) 2002-06-09 Completed [facility] 00:00:00 [facility] DTAP 2002-06-09 Completed [facility] 00:00:00 [facility] HIB 4 Dose Schedule 2002-06-09 Completed [facility] 00:00:00 [facility] Polio (IPV/OPV) 2002-06-09 Completed [facility] 00:00:00 [facility] DTAP 2002-06-09 Completed [facility] 00:00:00 [facility] HIB 4 Dose Schedule 2002-06-09 Completed [facility] 00:00:00 [facility] Polio (IPV/OPV) 2002-06-09 Completed [facility] 00:00:00 [facility] DTAP 2002-06-09 Completed [facility] 00:00:00 [facility] HIB 4 Dose Schedule 2002-06-09 Completed [facility] 00:00:00 [facility] Polio (IPV/OPV) 2002-06-09 Completed [facility] 00:00:00 [facility] DTAP 2002-06-09 Completed [facility] 00:00:00 [facility] HIB 4 Dose Schedule 2002-06-09 Completed [facility] 00:00:00 [facility] Polio (IPV/OPV) 2002-06-09 Completed [facility] 00:00:00 [facility] DTAP 2002-06-09 Completed [facility] 00:00:00 [facility] HIB 4 Dose Schedule 2002-06-09 Completed [facility] 00:00:00 [facility] Polio (IPV/OPV) 2002-06-09 Completed [facility] 00:00:00 [facility] DTAP 2002-06-09 Completed [facility] 00:00:00 [facility] HIB 4 Dose Schedule 2002-06-09 Completed [facility] 00:00:00 [facility] Polio (IPV/OPV) 2002-06-09 Completed [facility] 00:00:00 [facility] DTAP 2001 Completed [facility] 00:00:00 [facility] HIB 4 Dose Schedule 2001 Completed [facility] 00:00:00 [facility] Polio (IPV/OPV) 2001 Completed [facility] 00:00:00 [facility] DTAP 2001 Completed [facility] 00:00:00 [facility] HIB 4 Dose Schedule 2001 Completed [facility] 00:00:00 [facility] Polio (IPV/OPV) 2001 Completed [facility] 00:00:00 [facility] DTAP 2001 Completed [facility] 00:00:00 [facility] HIB 4 Dose Schedule 2001 Completed [facility] 00:00:00 [facility] Polio (IPV/OPV) 2001 Completed [facility] 00:00:00 [facility] DTAP 2001 Completed [facility] 00:00:00 [facility] HIB 4 Dose Schedule 2001 Completed [facility] 00:00:00 [facility] Polio (IPV/OPV) 2001 Completed [facility] 00:00:00 [facility] DTAP 2001 Completed [facility] 00:00:00 [facility] HIB 4 Dose Schedule 2001 Completed [facility] 00:00:00 [facility] Polio (IPV/OPV) 2001 Completed [facility] 00:00:00 [facility] DTAP 2001 Completed [facility] 00:00:00 [facility] HIB 4 Dose Schedule 2001 Completed [facility] 00:00:00 [facility] Polio (IPV/OPV) 2001 Completed [facility] 00:00:00 [facility] DTAP 2001 Completed [facility] 00:00:00 [facility] HIB 4 Dose Schedule 2001 Completed [facility] 00:00:00 [facility] Polio (IPV/OPV) 2001 Completed [facility] 00:00:00 [facility] DTAP 2001 Completed [facility] 00:00:00 [facility] HIB 4 Dose Schedule 2001 Completed [facility] 00:00:00 [facility] Polio (IPV/OPV) 2001 Completed [facility] 00:00:00 [facility] DTAP 2001 Completed [facility] 00:00:00 [facility] HIB 4 Dose Schedule 2001 Completed [facility] 00:00:00 [facility] Polio (IPV/OPV) 2001 Completed [facility] 00:00:00 [facility] DTAP 2001 Completed [facility] 00:00:00 [facility] HIB 4 Dose Schedule 2001 Completed [facility] 00:00:00 [facility] Polio (IPV/OPV) 2001 Completed [facility] 00:00:00 [facility] DTAP 2001 Completed [facility] 00:00:00 [facility] HIB 4 Dose Schedule 2001 Completed [facility] 00:00:00 [facility] Polio (IPV/OPV) 2001 Completed [facility] 00:00:00 [facility] DTAP 2001 Completed [facility] 00:00:00 [facility] HIB 4 Dose Schedule 2001 Completed [facility] 00:00:00 [facility] Polio (IPV/OPV) 2001 Completed [facility] 00:00:00 [facility] DTAP 2001 Completed [facility] 00:00:00 [facility] HIB 4 Dose Schedule 2001 Completed [facility] 00:00:00 [facility] Polio (IPV/OPV) 2001 Completed [facility] 00:00:00 [facility] DTAP 2001 Completed [facility] 00:00:00 [facility] HIB 4 Dose Schedule 2001 Completed [facility] 00:00:00 [facility] Polio (IPV/OPV) 2001 Completed [facility] 00:00:00 [facility] DTAP 2001 Completed [facility] 00:00:00 [facility] HIB 4 Dose Schedule 2001 Completed [facility] 00:00:00 [facility] Polio (IPV/OPV) 2001 Completed [facility] 00:00:00 [facility] DTAP 2001 Completed [facility] 00:00:00 [facility] HIB 4 Dose Schedule 2001 Completed [facility] 00:00:00 [facility] Polio (IPV/OPV) 2001 Completed [facility] 00:00:00 [facility] DTAP 2001 Completed [facility] 00:00:00 [facility] HIB 4 Dose Schedule 2001 Completed [facility] 00:00:00 [facility] Polio (IPV/OPV) 2001 Completed [facility] 00:00:00 [facility] DTAP 2001 Completed [facility] 00:00:00 [facility] HIB 4 Dose Schedule 2001 Completed [facility] 00:00:00 [facility] Polio (IPV/OPV) 2001 Completed [facility] 00:00:00 [facility] DTAP 2001 Completed [facility] 00:00:00 [facility] HIB 4 Dose Schedule 2001 Completed [facility] 00:00:00 [facility] Polio (IPV/OPV) 2001 Completed [facility] 00:00:00 [facility] DTAP 2001 Completed [facility] 00:00:00 [facility] HIB 4 Dose Schedule 2001 Completed [facility] 00:00:00 [facility] Polio (IPV/OPV) 2001 Completed [facility] 00:00:00 [facility] DTAP 2001 Completed [facility] 00:00:00 [facility] HIB 4 Dose Schedule 2001 Completed [facility] 00:00:00 [facility] Polio (IPV/OPV) 2001 Completed [facility] 00:00:00 [facility] DTAP 2001 Completed [facility] 00:00:00 [facility] HIB 4 Dose Schedule 2001 Completed [facility] 00:00:00 [facility] Polio (IPV/OPV) 2001 Completed [facility] 00:00:00 [facility] DTAP 2001 Completed [facility] 00:00:00 [facility] HIB 4 Dose Schedule 2001 Completed [facility] 00:00:00 [facility] Polio (IPV/OPV) 2001 Completed [facility] 00:00:00 [facility] DTAP 2001 Completed [facility] 00:00:00 [facility] HIB 4 Dose Schedule 2001 Completed [facility] 00:00:00 [facility] Polio (IPV/OPV) 2001 Completed [facility] 00:00:00 [facility] DTAP 2001 Completed [facility] 00:00:00 [facility] HIB 4 Dose Schedule 2001 Completed [facility] 00:00:00 [facility] Polio (IPV/OPV) 2001 Completed [facility] 00:00:00 [facility] DTAP 2001 Completed [facility] 00:00:00 [facility] HIB 4 Dose Schedule 2001 Completed [facility] 00:00:00 [facility] Polio (IPV/OPV) 2001 Completed [facility] 00:00:00 [facility] DTAP 2001 Completed [facility] 00:00:00 [facility] HIB 4 Dose Schedule 2001 Completed [facility] 00:00:00 [facility] Polio (IPV/OPV) 2001 Completed [facility] 00:00:00 [facility] DTAP 2001 Completed [facility] 00:00:00 [facility] HIB 4 Dose Schedule 2001 Completed [facility] 00:00:00 [facility] Polio (IPV/OPV) 2001 Completed [facility] 00:00:00 [facility] DTAP 2001 Completed [facility] 00:00:00 [facility] HIB 4 Dose Schedule 2001 Completed [facility] 00:00:00 [facility] Polio (IPV/OPV) 2001 Completed [facility] 00:00:00 [facility] DTAP 2001 Completed [facility] 00:00:00 [facility] HIB 4 Dose Schedule 2001 Completed [facility] 00:00:00 [facility] Polio (IPV/OPV) 2001 Completed [facility] 00:00:00 [facility] DTAP 2001 Completed [facility] 00:00:00 [facility] HIB 4 Dose Schedule 2001 Completed [facility] 00:00:00 [facility] Polio (IPV/OPV) 2001 Completed [facility] 00:00:00 [facility] DTAP 2001 Completed [facility] 00:00:00 [facility] HIB 4 Dose Schedule 2001 Completed [facility] 00:00:00 [facility] Polio (IPV/OPV) 2001 Completed [facility] 00:00:00 [facility] DTAP 2001 Completed [facility] 00:00:00 [facility] HIB 4 Dose Schedule 2001 Completed [facility] 00:00:00 [facility] Polio (IPV/OPV) 2001 Completed [facility] 00:00:00 [facility] DTAP 2001 Completed [facility] 00:00:00 [facility] HIB 4 Dose Schedule 2001 Completed [facility] 00:00:00 [facility] Polio (IPV/OPV) 2001 Completed [facility] 00:00:00 [facility] DTAP 2001 Completed [facility] 00:00:00 [facility] HIB 4 Dose Schedule 2001 Completed [facility] 00:00:00 [facility] Polio (IPV/OPV) 2001 Completed [facility] 00:00:00 [facility] DTAP 2001 Completed [facility] 00:00:00 [facility] HIB 4 Dose Schedule 2001 Completed [facility] 00:00:00 [facility] Polio (IPV/OPV) 2001 Completed [facility] 00:00:00 [facility] DTAP 2001 Completed [facility] 00:00:00 [facility] HIB 4 Dose Schedule 2001 Completed [facility] 00:00:00 [facility] Polio (IPV/OPV) 2001 Completed [facility] 00:00:00 [facility] DTAP 2001 Completed [facility] 00:00:00 [facility] HIB 4 Dose Schedule 2001 Completed [facility] 00:00:00 [facility] Polio (IPV/OPV) 2001 Completed [facility] 00:00:00 [facility] DTAP 2001 Completed [facility] 00:00:00 [facility] HIB 4 Dose Schedule 2001 Completed [facility] 00:00:00 [facility] Polio (IPV/OPV) 2001 Completed [facility] 00:00:00 [facility] DTAP 2001 Completed [facility] 00:00:00 [facility] HIB 4 Dose Schedule 2001 Completed [facility] 00:00:00 [facility] Polio (IPV/OPV) 2001 Completed [facility] 00:00:00 [facility] DTAP 2001 Completed [facility] 00:00:00 [facility] HIB 4 Dose Schedule 2001 Completed [facility] 00:00:00 [facility] Polio (IPV/OPV) 2001 Completed [facility] 00:00:00 [facility] DTAP 2001 Completed [facility] 00:00:00 [facility] HIB 4 Dose Schedule 2001 Completed [facility] 00:00:00 [facility] Polio (IPV/OPV) 2001 Completed [facility] 00:00:00 [facility] DTAP 2001 Completed [facility] 00:00:00 [facility] HIB 4 Dose Schedule 2001 Completed [facility] 00:00:00 [facility] Polio (IPV/OPV) 2001 Completed [facility] 00[facility]00:00 [facility] DTAP 2001 Completed [facility] 00:00:00 [facility] HIB 4 Dose Schedule 2001 Completed [facility] 00:00:00 [facility] Polio (IPV/OPV) 2001 Completed [facility] 00:00:00 [facility] Hep B, Adol or Pedi 2001 Completed [facility] Dosage 00:00:00 [facility] Hep B, Adol or Pedi 2001 Completed [facility] Dosage 00:00:00 [facility] Hep B, Adol or Pedi 2001 Completed [facility] Dosage 00:00:00 [facility] Hep B, Adol or Pedi 2001 Completed [facility] Dosage 00:00:00 [facility] Hep B, Adol or Pedi 2001 Completed [facility] Dosage 00:00:00 [facility] Hep B, Adol or Pedi 2001 Completed [facility] Dosage 00:00:00 [facility] Hep B, Adol or Pedi 2001 Completed [facility] Dosage 00:00:00 [facility] Hep B, Adol or Pedi 2001 Completed [facility] Dosage 00:00:00 [facility] Hep B, Adol or Pedi 2001 Completed [facility] Dosage 00:00:00 [facility] Hep B, Adol or Pedi 2001 Completed [facility] Dosage 00:00:00 [facility] Hep B, Adol or Pedi 2001 Completed [facility] Dosage 00:00:00 [facility] Hep B, Adol or Pedi 2001 Completed [facility] Dosage 00:00:00 [facility] Hep B, Adol or Pedi 2001 Completed [facility] Dosage 00:00:00 [facility] Hep B, Adol or Pedi 2001 Completed [facility] Dosage 00:00:00 [facility] Hep B, Adol or Pedi 2001 Completed [facility] Dosage 00:00:00 [facility] Hep B, Adol or Pedi 2001 Completed [facility] Dosage 00:00:00 [facility] Hep B, Adol or Pedi 2001 Completed [facility] Dosage 00:00:00 [facility] Hep B, Adol or Pedi 2001 Completed [facility] Dosage 00:00:00 [facility] Hep B, Adol or Pedi 2001 Completed [facility] Dosage 00:00:00 [facility] Hep B, Adol or Pedi 2001 Completed [facility] Dosage 00:00:00 [facility] Hep B, Adol or Pedi 2001 Completed [facility] Dosage 00:00:00 [facility] Hep B, Adol or Pedi 2001 Completed [facility] Dosage 00:00:00 [facility] Hep B, Adol or Pedi 2001 Completed [facility] Dosage 00:00:00 [facility] Hep B, Adol or Pedi 2001 Completed [facility] Dosage 00:00:00 [facility] Hep B, Adol or Pedi 2001 Completed [facility] Dosage 00:00:00 [facility] Hep B, Adol or Pedi 2001 Completed [facility] Dosage 00:00:00 [facility] Hep B, Adol or Pedi 2001 Completed [facility] Dosage 00:00:00 [facility] Hep B, Adol or Pedi 2001 Completed [facility] Dosage 00:00:00 [facility] [facility] Hep B, Adol or Pedi 2001 Completed Unive rsity of Dosage 00:00:00 [facility] Hep B, Adol or Pedi 2001 Completed Unive rsity of Dosage 00:00:00 [facility] Hep B, Adol or Pedi 2001 Completed Unive rsity of Dosage 00:00:00 [facility] Hep B, Adol or Pedi 2001 Completed Unive rsity of Dosage 00:00:00 [facility] Hep B, Adol or Pedi 2001 Completed Unive rsity of Dosage 00:00:00 [facility] Hep B, Adol or Pedi 2001 Completed Unive rsity of Dosage 00:00:00 [facility] Hep B, Adol or Pedi 2001 Completed Unive rsity of Dosage 00:00:00 [facility] Hep B, Adol or Pedi 2001 Completed Unive rsity of Dosage 00:00:00 [facility] Hep B, Adol or Pedi 2001 Completed Unive rsity of Dosage 00:00:00 [facility] Hep B, Adol or Pedi 2001 Completed Unive rsity of Dosage 00:00:00 [facility] Hep B, Adol or Pedi 2001 Completed Unive rsity of Dosage 00:00:00 [facility] Hep B, Adol or Pedi 2001 Completed Unive rsity of Dosage 00:00:00 [facility] Hep B, Adol or Pedi 2001 Completed Unive rsity of Dosage 00:00:00 [facility] Hep B, Adol or Pedi 2001 Completed Unive rsity of Dosage 00:00:00 [facility] Hep B, Adol or Pedi 2001 Completed Unive rsity of Dosage 00:00:00 [facility] Hep B, Adol or Pedi 2001 Completed Unive rsity of Dosage 00:00:00 [facility] Hep B, Adol or Pedi 2001 Completed Unive rsity of Dosage 00:00:00 [facility] Hep B, Adol or Pedi 2001 Completed Unive rsity of Dosage 00:00:00 [facility] Hep B, Adol or Pedi 2001 Completed Unive rsity of Dosage 00:00:00 [facility] Hep B, Adol or Pedi 2001 Completed Unive rsity of Dosage 00:00:00 [facility] Hep B, Adol or Pedi 2001 Completed Unive rsity of Dosage 00:00:00 [facility] Hep B, Adol or Pedi 2001 Completed Unive rsity of Dosage 00:00:00 [facility] Hep B, Adol or Pedi 2001 Completed Unive rsity of Dosage 00:00:00 [facility] Hep B, Adol or Pedi 2001 Completed Unive rsity of Dosage 00:00:00 [facility] Hep B, Adol or Pedi 2001 Completed Unive rsity of Dosage 00:00:00 [facility] Hep B, Adol or Pedi 2001 Completed Unive rsity of Dosage 00:00:00 [facility] Hep B, Adol or Pedi 2001 Completed Unive rsity of Dosage 00:00:00 [facility] Hep B, Adol or Pedi 2001 Completed Unive rsity of Dosage 00:00:00 [facility] Hep B, Adol or Pedi 2001 Completed Unive rsity of Dosage 00:00:00 [facility] Hep B, Adol or Pedi 2001 Completed Unive rsity of Dosage 00:00:00 [facility] Hep B, Adol or Pedi 2001 Completed Unive rsity of Dosage 00:00:00 [facility] Hep B, Adol or Pedi 2001 Completed Unive rsity of Dosage 00:00:00 [facility] Hep B, Adol or Pedi 2001 Completed Unive rsity of Dosage 00:00:00 [facility] Hep B, Adol or Pedi 2001 Completed Unive rsity of Dosage 00:00:00 [facility] Hep B, Adol or Pedi 2001 Completed Unive rsity of Dosage 00:00:00 [facility] Hep B, Adol or Pedi 2001 Completed Unive rsity of Dosage 00:00:00 [facility] Hep B, Adol or Pedi 2001 Completed Unive rsity of Dosage 00:00:00 [facility] Hep B, Adol or Pedi 2001 Completed Unive rsity of Dosage 00:00:00 [facility] Hep B, Adol or Pedi 2001 Completed Unive rsity of Dosage 00:00:00 [facility] Hep B, Adol or Pedi 2001 Completed Unive rsity of Dosage 00:00:00 [facility] Hep B, Adol or Pedi 2001 Completed Unive rsity of Dosage 00:00:00 [facility] Hep B, Adol or Pedi 2001 Completed Unive rsity of Dosage 00:00:00 [facility] Hep B, Adol or Pedi 2001 Completed Unive rsity of Dosage 00:00:00 [facility] Hep B, Adol or Pedi 2001 Completed Unive rsity of Dosage 00:00:00 [facility] Hep B, Adol or Pedi 2001 Completed Unive rsity of Dosage 00:00:00 [facility] Hep B, Adol or Pedi 2001 Completed Unive rsity of Dosage 00:00:00 [facility] Hep B, Adol or Pedi 2001 Completed Unive rsity of Dosage 00:00:00 [facility] Hep B, Adol or Pedi 2001 Completed Unive rsity of Dosage 00:00:00 [facility] Hep B, Adol or Pedi 2001 Completed Unive rsity of Dosage 00:00:00 [facility] Hep B, Adol or Pedi 2001 Completed Unive rsity of Dosage 00:00:00 [facility] Hep B, Adol or Pedi 2001 Completed Unive rsity of Dosage 00:00:00 [facility] Hep B, Adol or Pedi 2001 Completed Unive rsity of Dosage 00:00:00 [facility] Hep B, Adol or Pedi 2001 Completed Unive rsity of Dosage 00:00:00 [facility] Hep B, Adol or Pedi 2001 Completed Unive rsity of Dosage 00:00:00 [facility] Hep B, Adol or Pedi 2001 Completed Un[facility] of Dosage 00:00:00 [facility] Hep B, Adol or Pedi 2001 Completed Unive rsity of Dosage 00:00:00 [facility] Hep B, Adol or Pedi 2001 Completed Unive rsity of Dosage 00:00:00 [facility] Hep B, Adol or Pedi 2001 Completed Unive rsity of Dosage 00:00:00 [facility] Hep B, Adol or Pedi 2001 Completed Unive rsity of Dosage 00:00:00 [facility] Hep B, Adol or Pedi 2001 Completed Unive rsity of Dosage 00:00:00 [facility] Vital Signs Vital Name Observation Time Observation Value Comments Source Systolic blood 2021-04-28 13:45:00 112 mm[Hg] Univer sity of pressure [facility] Diastolic blood 2021-04-28 13:45:00 64 mm[Hg] Unive rsity of pressure [facility] Heart rate 2021-04-28 13:45:00 84 /min [facility] Body temperature 2021-04-28 13:45:00 36.56 Jessica [facility] 2021-04-28 13:45:00 18 /min [facility] Oxygen saturation in 2021-04-28 09:31:00 100 /min [facility] Arterial blood by [facility] Pulse oximetry Branch Body height 2021-04-26 20:45:00 160 cm [facility] Body weight 2021-04-26 20:45:00 109.148 kg [facility] BMI 2021-04-26 20:45:00 42.64 kg/m2 [facility] Body mass index 2021-04-26 20:45:00 98.73 % Unive rsity of (BMI) [Percentile] [facility] Per age and sex Branch Systolic blood 2021-04-27 16:15:00 119 mm[Hg] Univer sity of pressure [facility] Diastolic blood 2021-04-27 16:15:00 68 mm[Hg] Unive rsity of pressure [facility] Heart rate 2021-04-27 16:15:00 103 /min [facility] Body temperature 2021-04-27 16:15:00 37.44 Jessica [facility] Respiratory rate 2021-04-27 16:15:00 16 /min [facility] Oxygen saturation in 2021-04-27 16:15:00 96 /min [facility] Arterial blood by [facility] Pulse oximetry Branch Body height 2021-04-26 20:45:00 160 cm [facility] Body weight 2021-04-26 20:45:00 109.148 kg [facility] BMI 2021-04-26 20:45:00 42.64 kg/m2 [facility] Body mass index 2021-04-26 20:45:00 98.73 % Unive rsity of (BMI) [Percentile] [facility] Per age and sex Branch Systolic blood 2021-04-26 19:11:00 119 mm[Hg] Univer [facility]ity of [facility] Diastolic blood 2021-04-26 19:11:00 86 mm[Hg] [facility] Heart rate 2021-04-26 19:11:00 91 /min [facility] Body temperature 2021-04-26 19:11:00 36.56 Jessica [facility] Body height 2021-04-26 19:11:00 160 cm [facility] Body weight 2021-04-26 19:11:00 103.148 kg [facility] BMI 2021-04-26 19:11:00 40.28 kg/m2 [facility] Body mass index 2021-04-26 19:11:00 98.43 % Unive rsity of (BMI) [Percentile] [facility] Per age and sex Branch Systolic blood 2021-04-25 02:07:00 120 mm[Hg] Univer [facility]ity of [facility] Diastolic blood 2021-04-25 02:07:00 89 mm[Hg] Unive [facility]ity of pressure [facility] Heart rate 2021-04-25 02:07:00 119 /min [facility] Oxygen saturation in 2021-04-25 02:07:00 98 /min University Arterial blood by [facility] Pulse oximetry Branch Body temperature 2021-04-25 02:00:00 37.11 Jessica [facility] Respiratory rate 2021-04-25 02:00:00 20 /min Univ [facility] Body weight 2021-04-25 02:00:00 102.604 kg [facility] BMI 2021-04-25 02:00:00 40.07 kg/m2 [facility] Body mass index 2021-04-25 02:00:00 98.40 % Unive rsity of (BMI) [Percentile] [facility] Per age and sex Branch Systolic blood 2021-04-19 16:32:00 121 mm[Hg] Univer sity of pressure [facility] Diastolic blood 2021-04-19 16:32:00 84 mm[Hg] Unive rsity of pressure [facility] Heart rate 2021-04-19 16:29:00 85 /min [facility] Body temperature 2021-04-19 16:29:00 36.67 Jessica [facility] ers[facility] Respiratory rate 2021-04-19 16:29:00 18 /min Univ ers[facility] Body height 2021-04-19 16:29:00 160 cm [facility] Body weight 2021-04-19 16:29:00 103.42 kg [facility] BMI 2021-04-19 16:29:00 40.39 kg/m2 [facility] Body mass index 2021-04-19 16:29:00 98.45 % Unive rsity of (BMI) [Percentile] [place] [facility] Per age and sex Branch Systolic blood 2021-04-12 17:06:00 114 mm[Hg] Univer sity of pressure [facility] Diastolic blood 2021-04-12 17:06:00 80 mm[Hg] Unive rsity of pressure [facility] Heart rate 2021-04-12 17:06:00 76 /min [facility] Body temperature 2021-04-12 17:06:00 37.06 Jessica [facility] Body height 2021-04-12 17:06:00 160 cm [facility] Body weight 2021-04-12 17:06:00 104.418 kg [facility] BMI 2021-04-12 17:06:00 40.78 kg/m2 [facility] Body mass index 2021-04-12 17:06:00 98.51 % Unive rsity of (BMI) [Percentile] [place] [facility] Per age and sex Branch Heart rate 2021-04-05 02:15:00 89 /min [facility] Oxygen saturation in 2021-04-05 02:15:00 99 /min University Arterial blood by [facility] Pulse oximetry Branch Systolic blood 2021-04-05 02:00:00 134 mm[Hg] [facility] Diastolic blood 2021-04-05 02:00:00 86 mm[Hg] Unive rsity of pressure [facility] Body temperature 2021-04-04 23:20:00 36.94 Jessica [facility] Respiratory rate 2021-04-04 23:20:00 20 /min [facility] Body height 2021-04-04 23:20:00 160 cm [facility] Body weight 2021-04-04 23:20:00 103.874 kg [facility] BMI 2021-04-04 23:20:00 40.58 kg/m2 [facility] Body mass index 2021-04-04 23:20:00 98.49 % Unive rsity of (BMI) [Percentile] [place] [facility] Per age and sex Branch Systolic blood 2021-04-04 22:16:00 135 mm[Hg] [facility] Diastolic blood 2021-04-04 22:16:00 92 mm[Hg] [facility]ive [facility] Heart rate 2021-04-04 22:14:00 103 /min [facility] Body temperature 2021-04-04 22:14:00 37.06 Jessica Univ ers[facility] Respiratory rate 2021-04-04 22:14:00 20 /min [facility] Body height 2021-04-04 22:14:00 160 cm [facility] Body weight 2021-04-04 22:14:00 103.874 kg [facility] BMI 2021-04-04 22:14:00 40.57 kg/m2 [facility] Body mass index 2021-04-04 22:14:00 98.49 % Unive rsity of (BMI) [Percentile] [place] [facility] Per age and sex Branch Oxygen saturation in 2021-04-04 22:14:00 99 /min University of Arterial blood by [facility] Pulse oximetry Branch Systolic blood 2021-03-20 04:30:00 119 mm[Hg] [facility]iver [facility] Diastolic blood 2021-03-20 04:30:00 67 mm[Hg] [facility] Heart rate 2021-03-20 04:30:00 95 /min [facility] Oxygen saturation in 2021-03-20 04:30:00 95 /min [facility] Arterial blood by [facility] Pulse oximetry Branch Body temperature 2021-03-20 04:01:00 36.83 Jessica [facility] Body height 2021-03-20 03:41:41 160 cm [facility] Respiratory rate 2021-03-20 03:40:00 18 /min [facility] Body weight 2021-03-20 03:40:00 105.733 kg [facility] BMI 2021-03-20 03:40:00 41.29 kg/m2 [facility] Body mass index 2021-03-20 03:40:00 98.60 % Unive rsity of (BMI) [Percentile] [place] [facility] Per age and sex Branch Systolic blood 2021-03-14 22:21:00 110 mm[Hg] [facility]iver [facility] Diastolic blood 2021-03-14 22:21:00 79 mm[Hg] [facility] Heart rate 2021-03-14 22:21:00 109 /min [facility] Body temperature 2021-03-14 22:21:00 37.17 Jessica [facility] Respiratory rate 2021-03-14 22:21:00 18 /min [facility] Body height 2021-03-14 22:21:00 160 cm [facility] Body weight 2021-03-14 22:21:00 105.235 kg [facility] BMI 2021-03-14 22:21:00 41.10 kg/m2 [facility] Body mass index 2021-03-14 22:21:00 98.58 % Unive rsity of (BMI) [Percentile] [place] [facility] Per age and sex Branch Systolic blood 2021-02-14 21:29:00 117 mm[Hg] Univer [facility]ity of [facility] Diastolic blood 2021-02-14 21:29:00 74 mm[Hg] Unive [facility] Heart rate 2021-02-14 21:29:00 105 /min [facility] Body temperature 2021-02-14 21:29:00 36.83 Jessica [facility] Respiratory rate 2021-02-14 21:29:00 18 /min [facility] Body height 2021-02-14 21:29:00 160 cm [facility] Body weight 2021-02-14 21:29:00 104.327 kg [facility] BMI 2021-02-14 21:29:00 40.74 kg/m2 [facility] Body mass index 2021-02-14 21:29:00 98.55 % Unive rsity of (BMI) [Percentile] [place] [facility] Per age and sex Branch Body height 2021-02-06 13:39:00 160 cm [facility] Body weight 2021-02-06 13:39:00 103.477 kg [facility] BMI 2021-02-06 13:39:00 40.41 kg/m2 [facility] Body mass index 2021-02-06 13:39:00 98.51 % Unive rsity of (BMI) [Percentile] [place] [facility] Per age and sex Branch Systolic blood 2021-02-06 13:39:00 117 mm[Hg] [facility]iver [facility]ity of [facility] Diastolic blood 2021-02-06 13:39:00 78 mm[Hg] [facility] Heart rate 2021-02-06 13:39:00 108 /min [facility] Body temperature 2021-02-06 13:39:00 36.67 Jessica [facility] Respiratory rate 2021-02-06 13:39:00 20 /min [facility] Procedures Procedure Date / Time Performing Clinician Source Performed HB -MATERNAL 2021-04-28 15:05:00 Christa [facility] HEMORRHAGE SCREEN [facility] HB -MATERNAL 2021-04-28 15:05:00 Christa [facility] HEMORRHAGE SCREEN [facility] CBC WITH DIFF 2021-04-28 09:28:00 [facility] CBC WITH DIFF 2021-04-28 09:28:00 [facility] VENOUS CORD GAS 2021-04-27 15:21:00 [facility] VENOUS CORD GAS 2021-04-27 15:21:00 [facility] SECTION 2021-04-27 14:17:00 [facility] SECTION 2021-04-27 14:17:00 [facility] COVID-19 (ID NOW RAPID 2021-04-26 21:20:00 GoodwinCorin Grisel [facility] TESTING) Medical Branch LAB ONLY COVID 2021-04-26 21:20:00 [facility] (ID NOW RAPID 2021-04-26 21:20:00 [facility] Corin [facility] TESTING) Medical Branch LAB ONLY COVID 2021-04-26 21:20:00 [facility] CBC WITH DIFF 2021-04-26 21:15:00 [facility] HEPATITIS B SURFACE 2021-04-26 21:15:00 Corin Goodwin [facility] ANTIGEN [facility] ADC OR JIN ONLY - RPR 2021-04-26 21:15:00 Corin Goodwin [facility] Branch HIV 1/2 AG-AB WITH REFLEX 2021-04-26 21:15:00 [facility] 2021-04-26 21:15:00 Corin Goodwin Grisel [facility] HEPATITIS B SURFACE 2021-04-26 21:15:00 GoodwinPattihubert Darnell [facility] ANTIGEN [facility] Branch ADC OR JIN ONLY - RPR 2021-04-26 21:15:00 [facility] AG-AB WITH REFLEX 2021-04-26 21:15:00 [facility] ABO GROUPING 2021-04-26 21:08:00 Corin Goodwin Grisel [facility] RHO (D) IMMUNE GLOBULIN 2021-04-26 21:08:00 Corin Goodwin Grisel [facility] HB ABO GROUPING 2021-04-26 21:08:00 Corin Goodwin Grisel [facility] RHO (D) IMMUNE GLOBULIN 2021-04-26 21:08:00 Corin Goodwin [facility] CONSENT/REFUSAL FOR 2021-04-26 20:18:28 Doctor Unassigned, [facility] DIAGNOSIS AND TREATMENT [facility] CONSENT/REFUSAL FOR 2021-04-26 20:18:28 Doctor Unassigned, [facility] DIAGNOSIS AND TREATMENT [facility] ASSIGNMENT OF BENEFITS 2021-04-26 20:07:20 [facility], [facility] ASSIGNMENT OF BENEFITS 2021-04-26 20:07:20 Doctor [facility], [facility] POCT URINALYSIS W/O 2021-04-26 00:00:00 GoodwinPattihubert aDrnell [facility] SPECIFIC GRAVITY [facility] CONSENT/REFUSAL FOR 2021-04-25 01:29:48 Doctor Unassigned, [facility] DIAGNOSIS AND TREATMENT [facility] POCT URINALYSIS W/O 2021-04-19 00:00:00 Christa Corinhubert Darnell [facility] SPECIFIC GRAVITY [facility] >14 WEEKS US 2021-04-12 20:42:03 [facility] LIMITED Medical Branch DSU PRE-OP 2021-04-12 06:01:00 Doctor Anisha [facility] POCT URINALYSIS W/O 2021-04-12 00:00:00 Corin Goodwin [facility] SPECIFIC GRAVITY Medical Branch COVID-19 (ID NOW RAPID 2021-04-04 23:28:00 Corin Goodwin [facility] TESTING) Medical Branch NOTICE OF PRIVACY 2021-04-04 23:02:10 Doctor Anisha, [facility] PRACTICES [facility] CONSENT/REFUSAL FOR 2021-04-04 23:01:55 Doctor [place] [facility] DIAGNOSIS AND TREATMENT [facility] ASSIGNMENT OF BENEFITS 2021-04-04 23:01:40 Doctor Anisha, [facility] POCT URINALYSIS W/O 2021-04-04 22:16:00 Magda Glasgow [facility] SPECIFIC GRAVITY Medical Branch L&D VISIT (NON-DELIVERED) 2021-04-04 06:01:00 Doctor [place] [facility] CONSENT/REFUSAL FOR 2021-03-20 03:31:31 Doctor Anisha [facility] DIAGNOSIS AND TREATMENT [facility] POCT URINALYSIS W/O 2021-03-14 00:00:00 Magda Glasgow [facility] SPECIFIC GRAVITY Medical Branch 1 HR GLUCOSE TOLERANCE 2021-03-07 15:53:00 Magda Glasgow [facility] TEST Medical Branch GLUCOSE FASTING 2021-03-07 14:55:00 Magda [place] [facility] Medical Branch L&D VISIT (NON-DELIVERED) 2021-02-16 05:01:00 Doctor [place] [facility] ASSIGNMENT OF BENEFITS 2021-02-14 21:01:20 Doctor Anisha, [facility] POCT URINALYSIS W/O 2021-02-14 00:00:00 Corin Goodwin [facility] SPECIFIC GRAVITY Medical Branch POCT URINALYSIS W/O 2021-02-06 00:00:00 Ricky [facility] [place] SPECIFIC GRAVITY [facility] Branch SECOND AND THIRD 2021-01-11 16:11:00 Ricky Mcallister [facility] TRIMESTER ULTRASOUND Medical [facility] Encounters Start End Encounter Admission Attending Care Care Encounter Source Date/Time Date/Time Type Type Clinicians Facility Department ID 2021-04-12 Outpatient P [facility] JESS [id number] Univers 14:41:19 [facility] 2021-04-04 Outpatient P [facility] JESS [id number] Univers 21:54:23 [facility] 2021-02-13 Outpatient X [facility] JESS [id number] Univers 16:16:50 [facility] 2021-02-13 Emergency [facility] [id number] Univers 16:15:46 ity [facility] 2021-05-24 2021-05-24 Outpatient R CORIN GOODWIN [facility] [id number] Univers 13:15:00 13:15:00 [id number] ity [facility] 2021-05-04 2021-05-04 Telephone Corin Goodwin [facility] [id number] Univers 00:00:00 00:00:00 Cam [place] [id number] i ty of [place] [id number] [id number] [facility] 2021-04-26 2021-04-28 Inpatient P CORIN GOODWIN [facility] JESS [id number] Univers 14:09:00 18:00:00 ity [facility] 2021-04-26 2021-04-28 [facility] [id number] Univers 14:09:00 18:00:00 Encounter Cam [place] [id number] [facility] [id number] [facility] [id number] [facility] [address] [place] 2021-04-27 2021-04-27 Surgery Patti Goodwinen [facility] [id number] Univers 08:30:00 10:22:00 Cam [place] [id number] i ty of [place] [id number] [facility] [id number] [facility] [address] [place] 2021-04-26 2021-04-26 Outpatient R CORIN GOODWIN [facility] [id number] Univers 13:00:00 13:52:32 it[facility] 2021-04-26 2021-04-26 [facility] [id number] Univers 13:00:00 13:52:32 Grisel [place]OG[place] [id number] ity of [id number] [place] [id number] [place] dical [place] 134 [facility] 2021-04-26 2021-04-26 Outpatient R CHRISTA CORIN [facility] [id number] Univers 13:00:00 13:00:00 [id number] it[facility] 2021-04-24 2021-04-24 Outpatient X CHRISTA [facility] JESS [id number] Univers 19:39:00 20:47:00 [facility] 2021-04-24 2021-04-24 [facility] [id number] Univers 19:39:00 20:47:00 Grisel [place]OG[place] [id number] i ty of [place] [id number] [facility] [id number] [facility] [address] [place] 2021-04-24 2021-04-24 Orders Doctor NELY [id number] Univers 00:00:00 00:00:00 Only Unassigned, BETI [id number] ity of [facility] [id number] Rell as [phone] [facility] [address] 2021-04-20 2021-04-20 Case Pee [facility] 1.2.342.440 [id number] Univers 00:00:00 00:00:00 Management Magda HOGAN 350.1.13.10 it[place] [id number] Ct dical NAL 134 [facility] 2021-04-19 2021-04-19 Outpatient R CORIN GOODWIN [facility] [id number] 7Q-[id number] Univers 17:15:00 17:15:00 [id number] ity of [facility] 2021-04-19 2021-04-19 Outpatient R CORIN GOODWIN [facility] [id number] Univers 17:15:00 17:15:00 ity of [facility] 2021-04-19 2021-04-19 Routine [facility] 1.2.109.699 [id number] Univers 09:45:00 11:02:27 Cam [place] 350.1.13.10 ity of [facility] [place] [id number] Ct dic[address] 2021-04-17 2021-04-17 Case Pee [facility] 1.2.659.129 [id number] Univers 00:00:00 00:00:00 Management Magda [place] 350.1.13.10 ity [facility] [place] [id number] Ct dical NAL [address] [place] [address] 2021-04-14 2021-04-14 Telephone [facility] 1.2.840.114 [id number] Univers 00:00:00 00:00:00 Cam [place] 350.1.13.10 i ty of [place] PROFESS[place] [id number] Ct dic[address] 2021-04-12 2021-04-12 Routine [facility] 1.2.740.531 [id number] Univers 09:00:00 12:12:10 Cam [place] 350.1.13.10 ity of [facility] [place] [id number] [address] 2021-04-12 2021-04-12 Outpatient R CORIN GOODWIN [facility] [id number] Univers 09:00:00 12:12:10 ity of [facility] 2021-04-12 2021-04-12 Outpatient R [facility] [id number] [id number] Univers 09:00:00 09:00:00 [id number] ity of [facility] 2021-04-12 2021-04-12 Orders Doctor NELY 1.2.840.114 [id number] Univers 00:00:00 00:00:00 Only Unassigned, BETI 350.1.13.10 ity of [place] [facility] 4.2.7.2.686 Rell as [id number] [facility] [address] 2021-04-06 2021-04-06 Outpatient P CORIN GOODWIN [facility] JESS [id number] Univers 13:30:00 14:21:00 ity of [facility] 2021-04-04 2021-04-04 Hospital [facility] 1.2.840.114 [id number] Univers 16:54:00 20:30:00 Encounter Cam SAMIRA 350.1.13.10 [place] [id number] [facility] [address] 2021-04-04 2021-04-04 Outpatient P CHRISTA [facility] JESS [id number] Univers 16:54:00 20:30:00 ity of [facility] 2021-04-04 2021-04-04 Routine [facility] 1.2.618.743 [id number] Univers 16:15:00 16:38:01 Grisel HOGAN 350.1.13.10 ity of [place] [facility] [id number] Ct dic[address] 2021-04-04 2021-04-04 Outpatient R CORIN GOODWIN [facility] [id number] Univers 16:15:00 16:38:01 ity of [facility] 2021-04-04 2021-04-04 Outpatient R [facility] [id number] 7Q-20 Univers 16:15:00 16:15:00 [id number] ity [facility] 2021-04-04 2021-04-04 Orders Doctor MCKAY 1.2.840.114 [id number] Univers 00:00:00 00:00:00 Only Unassigned, BETI 350.1.13.10 ity of [place] [facility] 4.2.7.2.686 Rell as [id number] [facility] [address] 2021-03-19 2021-03-19 Outpatient P CORIN GOODWIN [facility] JESS [id number] Univers 21:50:00 22:45:00 ity of [facility] 2021-03-19 2021-03-19 Hospital Corin Goodwin [facility] 1.2.840.114 [id number] Univers 21:50:00 22:45:00 Encounter Grisel HOGAN 350.1.13.10 it[place] of [place] C[place] [id number] [facility] [address] 2021-03-19 2021-03-19 Orders Doctor NELY 1.2.840.114 [id number] Univers 00:00:00 00:00:00 Only Unassigned, BETI 350.1.13.10 ity of [place] [facility] 4.2.7.2.686 Rell as [id number] [facility] [address] 2021-03-14 2021-03-14 Outpatient R CORIN GOODWIN [facility] [id number] Univers 16:15:00 16:55:19 ity of [facility] 2021-03-14 2021-03-14 Routine Corin Goodwin [facility] 1.2.902.936 [id number] Univers 16:02:46 16:55:19 Grisel HOGAN 350.1.13.10 ity of [place] [id number] Ct dical NAL 134 [facility] 2021-03-07 2021-03-07 Door Technician Dorita, Mike Lab Main [facility] 1.2.8 40.114 [id number] Univers 08:38:09 09:20:42 Visit Magda [place] 350.1.13.10 ity [facility] 4[place] [id number] Ct dical NAL 353 [facility] 2021-03-07 2021-03-07 Telephone Pee [facility] 1.2.840.114 [id number] Univers 00:00:00 00:00:00 Magda HOGAN 350.1.13.10 i ty of [place] [id number] Ct dical NAL 134 [facility] 2021-02-28 2021-02-28 Outpatient R CORIN GOODWIN [facility] [id number] [id number] Univers 14:15:00 14:15:00 [id number] ity [facility] 2021-02-28 2021-02-28 Outpatient R [facility] [id number] Univers 14:15:00 14:15:00 ity of [facility] 2021-02-14 2021-02-14 Routine [facility] 1.2.446.369 [id number] Univers 16:02:06 17:11:25 Grisel HOGAN 350.1.13.10 ity of [place] [id number] Ct dical [address] 2021-02-14 2021-02-14 Outpatient R CORIN GOODWIN [facility] [id number] Univers 15:45:00 17:11:25 ity of [facility] 2021-02-14 2021-02-14 Outpatient R [facility] [id number] Univers 15:45:00 15:45:00 [id number] ity [facility] 2021-02-14 2021-02-14 Orders Doctor MCKAY 1.2.840.114 [id number] Univers 00:00:00 00:00:00 Only Unassigned, BETI 350.1.13.10 ity of [place] [facility] 4.2.7.2.686 Rell as [id number] [address] 2021-02-13 2021-02-13 Outpatient R RICKY MCALLISTER [facility] [id number] Univers 11:15:00 11:15:00 [id number] ity [facility] 2021-02-13 2021-02-13 Outpatient R RICKY MCALLISTER [facility] [id number] Univers 11:15:00 11:15:00 ity [facility] 2021-02-06 2021-02-06 Routine Ricky Mcallister [facility] 1.2.840.114 [id number] Univers 08:10:22 09:16:08 Shan 350.1.13.10 i ty of [place] [place] [facility] [id number] [address] 2021-02-06 2021-02-06 Outpatient R RICKY MCALLISTER [facility] [id number] Univers 08:15:00 08:15:00 [id number] ity [facility] 2021-02-06 2021-02-06 Outpatient R BORIS MCALLISTERN [facility] [id number] Univers 08:15:00 08:15:00 ity [facility] 2021-01-11 2021-01-11 Door Technician Ultrasound, [facility] 1.2 .840.114 [id number] Univers 10:15:27 11:32:01 Visit Leslie Castellanos POLICE LIAISON OFFICER 350.1. 13.10 ity [facility] 4.2.7.2.[address] [id number] [facility] ical & CHILD [address] [place] [address] 2021-01-11 2021-01-11 Outpatient P [facility] [id number] Univers 10:15:00 10:15:00 ity [facility] 2021-01-11 2021-01-11 Outpatient R [facility] [id number] Univers 10:00:00 10:00:00 [id number] ity [facility] 2021-01-09 2021-01-09 Outpatient R BORIS MCALLISTERN [facility] [id number] Univers 13:00:00 13:00:00 [id number] ity [facility] 2021-01-09 2021-01-09 Outpatient R BORIS MCALLISTERN [facility] [id number] Univers 13:00:00 13:00:00 ity [facility] 2020-12-17 2020-12-17 Outpatient R [facility] [id number] -[id number] Univers 13:15:00 13:15:00 [id number] ity [facility] 2020-12-17 2020-12-17 Outpatient R ESVIN RICKY [facility] [id number] Univers 13:15:00 13:15:00 ity [facility] 2020-12-12 2020-12-12 Outpatient FISHRICKY [facility] [id number] Univers 08:00:00 08:00:00 [id number] ity of [facility] 2020-12-12 2020-12-12 Outpatient R FISHRICKY [facility] [id number] Univers 08:00:00 08:00:00 ity of [facility] 2020-12-10 2020-12-10 Outpatient R [facility] [id number] -[id number] Univers 10:00:00 10:00:00 [id number] ity of [facility] 2020-12-10 2020-12-10 Outpatient R FISHRICKY [facility] [id number] Univers 10:00:00 10:00:00 ity of [facility] 2020-10-24 2020-10-24 Outpatient FISHRICKY [facility] [id number] Univers 11:15:00 11:15:00 [id number] ity [facility] 2020-10-24 2020-10-24 Outpatient R FISHRICKY [facility] [id number] Univers 11:15:00 11:15:00 ity of [facility] 2020-10-03 2020-10-03 Outpatient R FISHRICKY [facility] [id number] Univers 11:15:00 11:15:00 [id number] ity [facility] 2020-10-03 2020-10-03 Outpatient R FISHRICKY [facility] [id number] Univers 11:15:00 11:15:00 ity of [facility] 2020-09-22 2020-09-22 Outpatient R FISHRICKY [facility] [id number] Univers 16:00:00 16:00:00 [id number] ity of [facility] 2020-09-22 2020-09-22 Outpatient R FISHRICYK [facility] [id number] Univers 16:00:00 16:00:00 ity of [facility] 2020-09-15 2020-09-15 Outpatient R FISHRICKY [facility] [id number] Univers 15:15:00 15:15:00 [id number] ity [facility] 2020-09-15 2020-09-15 Outpatient R RICKY MCALLISTER [facility] [id number] Univers 15:15:00 15:15:00 ity of [facility] 2020-09-05 2020-09-05 Outpatient RICKY MCALLISTER [facility] [id number] Univers 09:30:00 09:30:00 [id number] ity of [facility] 2020-09-05 2020-09-05 Outpatient R RICKY MCALLISTER [facility] [id number] Univers 09:30:00 09:30:00 ity of [facility] 2020-04-25 2020-04-25 Outpatient [facility] [id number] -[id number] Univers 11:40:00 11:40:00 [id number] ity [facility] 2020-04-25 2020-04-25 Outpatient R [facility] [id number] Univers 11:40:00 11:40:00 ity of [facility] 2020-04-18 2020-04-18 Outpatient R [facility] [id number] -[id number] Univers 08:00:00 08:00:00 [id number] ity of [facility] 2020-04-18 2020-04-18 Outpatient R [facility] [id number] Univers 08:00:00 08:00:00 ity of [facility] 2020-02-05 2020-02-05 Outpatient R [facility] [id number] -[id number] Univers 19:00:00 19:00:00 [id number] ity of [facility] 2020-02-05 2020-02-05 Outpatient R [facility] [id number] Univers 19:00:00 19:00:00 ity of [facility] 2020-02-03 2020-02-03 Outpatient R [facility] [id number] -[id number] Univers 17:40:00 17:40:00 [id number] ity of [facility] 2020-02-03 2020-02-03 Outpatient R [facility] [id number] Univers 17:40:00 17:40:00 [facility] Test Description Test Time Test Comments Results Result Comments Source MATERNAL HEMO SCREEN 2021-04-28 15:57:59 Test Item Value Reference Range Interpretation Comme nts SCREEN (test code = 846) Negative Performed at [facility] Laboratory Services - [facility] Blood Bank[address] [place], [place] [address]Toll Free: [phone] A No. [id number] RHIG REQUIRED? (test code = 1 Syringe Performed at [facility] Laboratory Services - 1747) [facility] Blood Bank[address] [place], [place] [address]Toll Free: [phone] A No. [id number] [facility] [id number] 15:57:59 Test Item Value Reference Range Interpretation Comments SCREEN (test Negative Performed at [facility] code = 846) Laboratory Serv [facility] [address] [place], [place] [address]Toll Free: [phone] A No. [id number] RHIG REQUIRED? (test 1 Syringe Perform ed at [facility] code = 1747) Laboratory Serv [facility] [address] [place], [place] [address]Toll Free: [phone] A No. [id number] [facility] with [id number] 10:42:32 Test Item Value Reference Range Interpretation Comments WBC (test code = See_Comment [Automated 7390-2) message] The sy stem which generated this result transmitted reference range : 4.30 - 11.10 10*3/?L. The reference range was not used to interpret this result as normal/abnormal . RBC (test code = See_Comment L [Automated 609-8) message] The sy stem which generated this result transmitted reference range : 3.93 - 5.25 10*6/?L. The reference range was not used to interpret this result as normal/abnormal . HGB (test code = 10.5 g/dL 11.6-15.0 L 718-7) HCT (test code = 32.1 % 35.7-45.2 L 4544-3) MCV (test code = 91.2 fL 80.6-95.5 787-2) MCH (test code = 29.8 pg 25.9-32.8 785-6) MCHC (test code = 32.7 g/dL 31.6-35.1 786-4) RDW-SD (test code = 44.9 fL 39.0-49.9 20143-0) RDW-CV (test code = 13.5 % 12.0-15.5 788-0) PLT (test code = See_Comment [Automated 777-3) message] The sy stem which generated this result transmitted reference range : 166 - 358 10*3/ ?L. The reference r zachary was not used to interpret this result as normal/abnormal . MPV (test code = 10.5 fL 9.5-12.9 64139-2) NRBC/100 WBC (test See_Comment [Automat ed code = 7705068762) message] The system which generated this result transmitted reference range : 0.0 - 10.0 /100 WBCs. The refer ence range was not u sed to interpret th is result as normal/abnormal . NRBC x10^3 (test code <0.01 See_Comment [Auto mated = 1957182157) message] The s ystem which generated this result transmitted reference range : 10*3/?L. The reference range was not used to interpret this result as normal/abnormal . GRAN MAT (NEUT) % 65.4 % (test code = 770-8) IMM GRAN % (test code 0.90 % = 5068559558) LYMPH % (test code = 25.1 % 736-9) MONO % (test code = 8.0 % 5905-5) EOS % (test code = 0.1 % 713-8) BASO % (test code = 0.5 % 706-2) GRAN MAT x10^3(ANC) 5.20 10*3/uL 1.88-7.09 (test code = 2877055332) IMM GRAN x10^3 (test 0.07 10*3/uL 0.00-0.06 H code = 5153935408) LYMPH x10^3 (test code 2.00 10*3/uL 1.32-3.29 = 731-0) MONO x10^3 (test code 0.64 10*3/uL 0.33-0.92 = 742-7) EOS x10^3 (test code = <0.03 0.03-0.39 L 711-2) BASO x10^3 (test code 0.04 10*3/uL 0.01-0.07 = 704-7) Lab Interpretation Abnormal (test code = 73377-6) [facility] with [id number] 10:42:32 Test Item Value Reference Range Interpretation Comments WBC (test code = See_Comment [Automated 6690-2) message] The sy stem which generated this result transmitted reference range : 4.30 - 11.10 10*3/?L. The reference range was not used to interpret this result as normal/abnormal . RBC (test code = See_Comment L [Automated 789-8) message] The sy stem which generated this result transmitted reference range : 3.93 - 5.25 10*6/?L. The reference range was not used to interpret this result as normal/abnormal . HGB (test code = 10.5 g/dL 11.6-15.0 L 718-7) HCT (test code = 32.1 % 35.7-45.2 L 4544-3) MCV (test code = 91.2 fL 80.6-95.5 787-2) MCH (test code = 29.8 pg 25.9-32.8 785-6) MCHC (test code = 32.7 g/dL 31.6-35.1 786-4) RDW-SD (test code = 44.9 fL 39.0-49.9 66960-3) RDW-CV (test code = 13.5 % 12.0-15.5 788-0) PLT (test code = See_Comment [Automated 777-3) message] The sy stem which generated this result transmitted reference range : 166 - 358 10*3/ ?L. The reference r zachary was not used to interpret this result as normal/abnormal . MPV (test code = 10.5 fL 9.5-12.9 99611-1) NRBC/100 WBC (test See_Comment [Automat ed code = 3263405130) message] The system which generated this result transmitted reference range : 0.0 - 10.0 /100 WBCs. The refer ence range was not u sed to interpret th is result as normal/abnormal . NRBC x10^3 (test code <0.01 See_Comment [Auto mated = 1569551407) message] The s ystem which generated this result transmitted reference range : 10*3/?L. The reference range was not used to interpret this result as normal/abnormal . GRAN MAT (NEUT) % 65.4 % (test code = 770-8) IMM GRAN % (test code 0.90 % = 1102247920) LYMPH % (test code = 25.1 % 736-9) MONO % (test code = 8.0 % 5905-5) EOS % (test code = 0.1 % 713-8) BASO % (test code = 0.5 % 706-2) GRAN MAT x10^3(ANC) 5.20 10*3/uL 1.88-7.09 (test code = 1707613328) IMM GRAN x10^3 (test 0.07 10*3/uL 0.00-0.06 H code = 1834010675) LYMPH x10^3 (test code 2.00 10*3/uL 1.32-3.29 = 731-0) MONO x10^3 (test code 0.64 10*3/uL 0.33-0.92 = 742-7) EOS x10^3 (test code = <0.03 0.03-0.39 L 711-2) BASO x10^3 (test code 0.04 10*3/uL 0.01-0.07 = 704-7) Lab Interpretation Abnormal (test code = 76826-2) [facility] (D) IMMUNE [id number] 19:18:35 Test Item Value Reference Range Interpretation Comments RHIG CANDIDATE? (test Yes- see A Patien t is a code = 5055) comment candidate for RhIg- Patient i s Rh Negative and baby is Rh Positive.Perfor me d at [facility] Laboratory Services - [facility] Blood [address] [place] [address]Airu Free: [phone] A No. [id number] Lab Interpretation Abnormal (test code = 38623-7) [facility] (D) IMMUNE [id number] 19:18:35 Test Item Value Reference Range Interpretation Comments RHIG CANDIDATE? (test Yes- see A Patien t is a code = 5055) comment candidate for RhIg- Patient i s Rh Negative and baby is Rh Positive.Perfor me d at [facility] Laboratory Services - [facility] Blood [address] [place] [address]Hqew Free: [phone] A No. [id number] Lab Interpretation Abnormal (test code = 09025-6) [facility] Cord [id number] 15:34:55 Test Item Value Reference Range Interpretation Comments VENOUS BASE EXCESS, CORD mEq/L (test code = 2802991155) VENOUS PH, CORD (test 7.25-7.45 code = 3744531200) VENOUS PC02, CORD (test See_Comment [Au tomated message] code = 4179186105) The syste m which generated this result transmitted ref erence range: 27 - 49 mmHg. The reference r zachary was not used to interpret this result as normal/abnor mal. VENOUS PO2, CORD (test See_Comment H [Aut omated message] code = 6828954738) The syste m which generated this result transmitted ref erence range: 17 - 41 mmHg. The reference r zachary was not used to interpret this result as normal/abnor mal. VENOUS BICARBONATE, CORD See_Comment [A utomated message] (test code = 2173496473) The system which generated this result transmitted ref erence range: 12 - 29 mEq/L. The reference r zachary was not used to interpret this result as normal/abnor mal. Lab Interpretation (test Abnormal code = 27729-2) [facility] Cord [id number] 15:34:55 Test Item Value Reference Range Interpretation Comments VENOUS BASE EXCESS, CORD mEq/L (test code = 7834263263) VENOUS PH, CORD (test 7.25-7.45 code = 2289634745) VENOUS PC02, CORD (test See_Comment [Au tomated message] code = 2847920175) The syste m which generated this result transmitted ref erence range: 27 - 49 mmHg. The reference r zachary was not used to interpret this result as normal/abnor mal. VENOUS PO2, CORD (test See_Comment H [Aut omated message] code = 4117820247) The syste m which generated this result transmitted ref erence range: 17 - 41 mmHg. The reference r zachary was not used to interpret this result as normal/abnor mal. VENOUS BICARBONATE, CORD See_Comment [A utomated message] (test code = 2142086808) The system which generated this result transmitted ref erence range: 12 - 29 mEq/L. The reference r zachary was not used to interpret this result as normal/abnor mal. Lab Interpretation (test Abnormal code = 10003-1) [facility] Cord [id number] 15:31:19 Test Item Value Reference Range Interpretation Comments BASE EXCESS, CORD mEq/L (test code = 1482984680) AC PH, CORD (BEAKER) 7.18-7.38 (test code = 0672235925) PC02, CORD (test code See_Comment [Auto mated message] The = 8460920601) system which g enerated this result transmit janeen reference range : 32 - 66 mmHg. The refer ence range was not used to interpret this result as normal/abnormal . PO2, CORD (test code See_Comment [Autom ated message] The = 0143463647) system which g enerated this result transmit janeen reference range : 10 - 30 mmHg. The refer ence range was not used to interpret this result as normal/abnormal . BICARBONATE, CORD See_Comment [Automate d message] The (test code = system which ge nerated this 5959380624) result transmit janeen reference range : 17 - 27 mEq/L. The refe rence range was not used to interpret this result as normal/abnormal . [facility] Cord [id number] 15:31:19 Test Item Value Reference Range Interpretation Comments BASE EXCESS, CORD mEq/L (test code = 7917636600) AC PH, CORD (BEAKER) 7.18-7.38 (test code = 5166897641) PC02, CORD (test code See_Comment [Auto mated message] The = 1505272832) system which g enerated this result transmit janeen reference range : 32 - 66 mmHg. The refer ence range was not used to interpret this result as normal/abnormal . PO2, CORD (test code See_Comment [Autom ated message] The = 4700117995) system which g enerated this result transmit janeen reference range : 10 - 30 mmHg. The refer ence range was not used to interpret this result as normal/abnormal . BICARBONATE, CORD See_Comment [Automate d message] The (test code = system which ge nerated this 5444092503) result transmit janeen reference range : 17 - 27 mEq/L. The refe rence range was not used to interpret this result as normal/abnormal . [facility] B Surface [id number] 06:20:07 Test Item Value Reference Range Interpretation Comments HBsAg Semi-Quantitative (test code = Negative Negative 5195-3) [facility] Surface [id number] 06:20:07 Test Item Value Reference Range Interpretation Comments HBsAg Semi-Quantitative (test code = Negative Negative 5195-3) [facility] OR JIN ONLY - [id number] 04:13:23 Test Item Value Reference Range Interpretation Comments RPR (Qualitative) (test code = Nonreactive Nonreactive 42786-7) Lab Interpretation (test code = Normal 71915-1) [facility] OR JIN ONLY - [id number] 04:13:23 Test Item Value Reference Range Interpretation Comments RPR (Qualitative) (test code = Nonreactive Nonreactive 35975-0) Lab Interpretation (test code = Normal 58869-9) [facility] [id number] 22:58:47 Test Item Value Reference Range Interpretation Comments HIV Negative Negative Semi-quantitative (test code = 87164-3) NO (test code = Non-reactive for HIV-1 NO) antigen and HIV-1/HIV-2 antibodies. ?No laboratory evidence of HIV infection. ?Repeat in 2-4 weeks if acute HIV infection is suspected. [facility] [id number] 22:58:47 Test Item Value Reference Range Interpretation Comments HIV Negative Negative Semi-quantitative (test code = 39819-8) NO (test code = Non-reactive for HIV-1 NO) antigen and HIV-1/HIV-2 antibodies. ?No laboratory evidence of HIV infection. ?Repeat in 2-4 weeks if acute HIV infection is suspected. [facility] Screen - ONCE [id number] 22:14:17 Test Item Value Reference Range Interpretation Comments ABO & RH (test code O Negative Performe d at [facility] = 20) Laboratory [facility] [facility] [place], [place] [address]Toll Free: [phone] A No. [id number] IAT (test code = Negative Performed a t [facility] 1185) Laboratory [facility] Blood [place] [address]Toll Free: [phone] A No. [id number] [facility] Screen - ONCE [id number] 22:14:17 Test Item Value Reference Range Interpretation Comments ABO & RH (test code O Negative Performe d at [facility] = 20) Laboratory [facility] Blood [place] [address]Toll Free: [phone] A No. [id number] IAT (test code = Negative Performed a t [facility] 1185) Laboratory [facility] [place], [place] [address]Toll Free: [phone] A No. [id number] [facility] with [id number] 21:45:08 Test Item Value Reference Range Interpretation Comments WBC (test code = See_Comment [Automated 6490-2) message] The sy stem which generated this result transmitted reference range : 4.30 - 11.10 10*3/?L. The reference range was not used to interpret this result as normal/abnormal . RBC (test code = See_Comment [Automated 578-8) message] The sy stem which generated this result transmitted reference range : 3.93 - 5.25 10*6/?L. The reference range was not used to interpret this result as normal/abnormal . HGB (test code = 12.9 g/dL 11.6-15.0 718-7) HCT (test code = 38.7 % 35.7-45.2 4544-3) MCV (test code = 89.4 fL 80.6-95.5 787-2) MCH (test code = 29.8 pg 25.9-32.8 785-6) MCHC (test code = 33.3 g/dL 31.6-35.1 786-4) RDW-SD (test code = 42.6 fL 39.0-49.9 66725-0) RDW-CV (test code = 13.2 % 12.0-15.5 788-0) PLT (test code = See_Comment [Automated 777-3) message] The sy stem which generated this result transmitted reference range : 166 - 358 10*3/ ?L. The reference r zachary was not used to interpret this result as normal/abnormal . MPV (test code = 10.5 fL 9.5-12.9 34228-7) NRBC/100 WBC (test See_Comment [Automat ed code = 9456781722) message] The system which generated this result transmitted reference range : 0.0 - 10.0 /100 WBCs. The refer ence range was not u sed to interpret th is result as normal/abnormal . NRBC x10^3 (test code <0.01 See_Comment [Auto mated = 9211702257) message] The s ystem which generated this result transmitted reference range : 10*3/?L. The reference range was not used to interpret this result as normal/abnormal . GRAN MAT (NEUT) % 83.6 % (test code = 770-8) IMM GRAN % (test code 0.40 % = 3416773510) LYMPH % (test code = 9.0 % 736-9) MONO % (test code = 5.0 % 5905-5) EOS % (test code = 1.5 % 713-8) BASO % (test code = 0.5 % 706-2) GRAN MAT x10^3(ANC) 8.55 10*3/uL 1.88-7.09 H (test code = 8141790586) IMM GRAN x10^3 (test 0.04 10*3/uL 0.00-0.06 code = 2222248869) LYMPH x10^3 (test code 0.92 10*3/uL 1.32-3.29 L = 731-0) MONO x10^3 (test code 0.51 10*3/uL 0.33-0.92 = 742-7) EOS x10^3 (test code = 0.15 10*3/uL 0.03-0.39 711-2) BASO x10^3 (test code 0.05 10*3/uL 0.01-0.07 = 704-7) Lab Interpretation Abnormal (test code = 01207-1) [facility] with [id number] 21:45:08 Test Item Value Reference Range Interpretation Comments WBC (test code = See_Comment [Automated 9790-2) message] The sy stem which generated this result transmitted reference range : 4.30 - 11.10 10*3/?L. The reference range was not used to interpret this result as normal/abnormal . RBC (test code = See_Comment [Automated 789-8) message] The sy stem which generated this result transmitted reference range : 3.93 - 5.25 10*6/?L. The reference range was not used to interpret this result as normal/abnormal . HGB (test code = 12.9 g/dL 11.6-15.0 718-7) HCT (test code = 38.7 % 35.7-45.2 4544-3) MCV (test code = 89.4 fL 80.6-95.5 787-2) MCH (test code = 29.8 pg 25.9-32.8 785-6) MCHC (test code = 33.3 g/dL 31.6-35.1 786-4) RDW-SD (test code = 42.6 fL 39.0-49.9 51365-0) RDW-CV (test code = 13.2 % 12.0-15.5 788-0) PLT (test code = See_Comment [Automated 777-3) message] The sy stem which generated this result transmitted reference range : 166 - 358 10*3/ ?L. The reference r zachary was not used to interpret this result as normal/abnormal . MPV (test code = 10.5 fL 9.5-12.9 31406-0) NRBC/100 WBC (test See_Comment [Automat ed code = 9978327788) message] The system which generated this result transmitted reference range : 0.0 - 10.0 /100 WBCs. The refer ence range was not u sed to interpret th is result as normal/abnormal . NRBC x10^3 (test code <0.01 See_Comment [Auto mated = 8841480323) message] The s ystem which generated this result transmitted reference range : 10*3/?L. The reference range was not used to interpret this result as normal/abnormal . GRAN MAT (NEUT) % 83.6 % (test code = 770-8) IMM GRAN % (test code 0.40 % = 2029197443) LYMPH % (test code = 9.0 % 736-9) MONO % (test code = 5.0 % 5905-5) EOS % (test code = 1.5 % 713-8) BASO % (test code = 0.5 % 706-2) GRAN MAT x10^3(ANC) 8.55 10*3/uL 1.88-7.09 H (test code = 0667512006) IMM GRAN x10^3 (test 0.04 10*3/uL 0.00-0.06 code = 8735617641) LYMPH x10^3 (test code 0.92 10*3/uL 1.32-3.29 L = 731-0) MONO x10^3 (test code 0.51 10*3/uL 0.33-0.92 = 742-7) EOS x10^3 (test code = 0.15 10*3/uL 0.03-0.39 711-2) BASO x10^3 (test code 0.05 10*3/uL 0.01-0.07 = 704-7) Lab Interpretation Abnormal (test code = 99752-8) [facility] [id number] 19:14:00 Test Item Value Reference Range Interpretation Comments POCT PH U (test code = 3254) 8 mg/dl 5-8 POCT U LEUK EST (test code = Trace Negative - Negative 3263) POCT U NIT (test code = 3262) Negative Negative - Negative POCT U PROT (test code = 3259) Trace Negative - Negative POCT U GLU (test code = 3256) Negative Negative - Negative POCT U KETONE (test code = 3258) Negative Negative - Negative POCT U BLD (test code = 3257) Negative Negative - Negative [facility] [id number] 16:32:00 Test Item Value Reference Range Interpretation Comments POCT PH U (test code = 3254) N/A 5-8 POCT U LEUK EST (test code = N/A Negative - Negative 3263) POCT U NIT (test code = 3262) N/A Negative - Negative POCT U PROT (test code = 3259) Trace Negative - Negative POCT U GLU (test code = 3256) Negative Negative - Negative POCT U KETONE (test code = 3258) N/A Negative - Negative POCT U BLD (test code = 3257) N/A Negative - Negative [facility] URINALYSIS W/O SPECIFIC [id number] 17:11:00 Test Item Value Reference Range Interpretation Comments POCT PH U (test code = 3254) 8 mg/dl 5-8 POCT U LEUK EST (test code = ++ Negative - Negative 3263) POCT U NIT (test code = 3262) Negative Negative - Negative POCT U PROT (test code = 3259) Trace Negative - Negative POCT U GLU (test code = 3256) Normal Negative - Negative POCT U KETONE (test code = 3258) Negative Negative - Negative POCT U BLD (test code = 3257) Trace Negative - Negative [facility] SPECIFIC [id number] 22:16:00 Test Item Value Reference Range Interpretation Comments POCT PH U (test code = 3254) 7 mg/dl 5-8 POCT U LEUK EST (test code = positive Negative - Negative 3263) POCT U NIT (test code = 3262) negative Negative - Negative POCT U PROT (test code = 3259) positive Negative - Negative POCT U GLU (test code = 3256) negative Negative - Negative POCT U KETONE (test code = 3258) negative Negative - Negative POCT U BLD (test code = 3257) positive Negative - Negative [facility] SPE[facility] [id number] 22:22:00 Test Item Value Reference Range Interpretation Comments POCT PH U (test code = 3254) n/a 5-8 POCT U LEUK EST (test code = 3263) n/a Negative - Negative POCT U NIT (test code = 3262) n/a Negative - Negative POCT U PROT (test code = 3259) neg Negative - Negative POCT U GLU (test code = 3256) neg Negative - Negative POCT U KETONE (test code = 3258) N/A Negative - Negative POCT U BLD (test code = 3257) N/A Negative - Negative [facility] HR GLUCOSE TOLERANCE [id number] 16:45:14 Test Item Value Reference Range Interpretation Comments GLUC 1 HR (test code = 7919045556) 165 mg/dL 120-170 Lab Interpretation (test code = Normal 78976-4) [facility] [id number] 16:08:08 Test Item Value Reference Range Interpretation Comments GLU FASTNG (test code = 3590098073) 87 mg/dL 70-110 Lab Interpretation (test code = Normal 10587-3) [facility]/O SPECIFIC [id number] 21:29:00 Test Item Value Reference Range Interpretation Comments POCT PH U (test code = 3254) N/A 5-8 POCT U LEUK EST (test code = N/A Negative - Negative 3263) POCT U NIT (test code = 3262) N/A Negative - Negative POCT U PROT (test code = 3259) Negative Negative - Negative POCT U GLU (test code = 3256) Negative Negative - Negative POCT U KETONE (test code = 3258) N/A Negative - Negative POCT U BLD (test code = 3257) N/A Negative - Negative [facility] W/O SPECIFIC [id number] 13:48:00 Test Item Value Reference Range Interpretation Comments POCT PH U (test code = 3254) n/a 5-8 POCT U LEUK EST (test code = n/a Negative - Negative 3263) POCT U NIT (test code = 3262) n/a Negative - Negative POCT U PROT (test code = 3259) negative Negative - Negative POCT U GLU (test code = 3256) negative Negative - Negative POCT U KETONE (test code = 3258) n/a Negative - Negative POCT U BLD (test code = 3257) n/a Negative - Negative [facility]
[2021-05-04 16:11] LABS: Urine Blood Trace-intact (Negative); Urine Glucose Negative (Negative); Urine Protein 1+ (Negative); Urine Specific Gravity >=1.030 (1.005-1.030); Urine pH 5.5 (5.0-7.0)
[2021-05-04 16:18] LABS: Absolute Lymphocytes (CBC) 2.6 K/uL (0.7-4.9); Hematocrit 36.1 % (36.0-45.0); Lymphocytes % 25.6 % (15.3-44.8); MPV 7.6 fL (7.6-11.3); RBC Red Blood Cell Count 4.07 M/uL (3.86-4.86)
[2021-05-04 16:23] LABS: Protime INR 0.97
[2021-05-04 16:43] LABS: ALT/SGPT 33 U/L (12-78); AST/SGOT 24 U/L (15-37); Albumin 2.4 g/dL (3.4-5.0); Alkaline Phosphatase 124 U/L (45-117); BUN Blood Urea Nitrogen 15 mg/dL (7-18); Bicarbonate 24 mmol/L (21-32); Bilirubin Direct < 0.1 mg/dL (0-0.2); Bilirubin Total 0.1 mg/dL (0.2-1.0); C-Reactive Protein 5.23 mg/L (<3.00); Ferritin 41.5 ng/mL (8-388); Glucose Level 89 mg/dL (74-106); Magnesium 2.2 mg/dL (1.8-2.4); NT PRO-BNP 17 pg/mL (<125); Potassium 3.6 mmol/L (3.5-5.1); Protein, Total 7.2 g/dL (6.4-8.2); Sodium Level 139 mmol/L (136-145)
[2021-05-04] MEDS ORDERED: NA CHLORIDE 0.9% 1,000 ML ONE (16:46)
[2021-05-04] MEDS ORDERED: MECLIZINE HCL 12.5 MG TAB ONE (16:46)
[2021-05-04 16:50] LABS: Urine Bacteria <20 /HPF (<20); Urine Mucus 1+ /HPF (NONE SEEN); Urine RBC <5 /HPF (NONE SEEN)
[2021-05-04 17:39] LABS: SARS-COV-2 RT PCR POSITIVE (NEGATIVE)
--- NOTE | 2021-05-04 17:41 | RAD REPORT ---
EXAM DESCRIPTION: RAD - Chest Single View - 05/04/2021 5:35 pm CLINICAL HISTORY: SOB Chest pain. COMPARISON: No comparisons FINDINGS: Portable technique limits examination quality. The lungs are grossly clear. The heart is normal in size. No displaced fractures. IMPRESSION: No acute intrathoracic process suspected.
--- NOTE | 2021-05-04 17:55 | RAD REPORT ---
EXAM DESCRIPTION: CT - Head Brain Wo Cont - 05/04/2021 5:49 pm CLINICAL HISTORY: Syncope;Dizziness Headache, drowsiness, syncope COMPARISON: HEAD BRAIN W CONTRAST dated 06/17/2012 TECHNIQUE: All CT scans are performed using dose optimization technique as appropriate and may inclu de automated exposure control or mA/KV adjustment according to patient size. FINDINGS: No intracranial hemorrhage, hydrocephalus or extra-axial fluid collection.No areas of brai n edema or evidence of midline shift. The paranasal sinuses and mastoids are clear. The calvarium is intact. IMPRESSION: No acute intracranial abnormality.
--- NOTE | 2021-05-04 18:17 | RAD REPORT ---
EXAM DESCRIPTION: CT - Chest For Pe Angio - 05/04/2021 5:57 pm CLINICAL HISTORY: Chest pain. syncope;SOB COMPARISON: No comparisons TECHNIQUE: CT angiogram of the pulmonary arteries was performed with MIP. All CT scans are performed using dose optimization technique as appropriate and may include automated exposure control or mA/KV adjustment according to patient size. FINDINGS: No evidence of pulmonary thromboembolism. No acute aortic finding demonstrated. The lungs are clear. No significant pericardial or pleural fluid. No concerning bony finding. IMPRESSION: No evidence of pulmonary thromboembolism. No acute lung findings.
--- NOTE | 2021-05-04 19:11 | EDPHYS ---
Physician Documentation [facility] Name: Susan Christopher Age: 20 yrs Sex: Female : 2000 Arrival Date: 05/04/2021 Time: 15:33 Bed 30 Private MD: CJ Physician Sam Gaviria HPI: 05/04 16:03 This 20 yrs old Female presents to ER via Ambulatory with complaints of Passed Out cp Prior To Arrival, Dizziness. 16:03 The patient has experienced syncope, lost consciousness. Onset: The symptoms/episode cp began/occurred today. Duration: This was a single episode, that lasted an unknown period of time. Associated injury: The patient did not suffer any apparent associated injury. Associated signs and symptoms: Pertinent positives: dizziness, shortness of breath, vaginal bleeding, Pertinent negatives: abdominal pain, blurred vision, chest pain. Patient reports giving 1 week ago to healthy infant via . Patient reports continued light bleeding and that she tested positive for COVID-19 1 week ago. Historical: - Allergies: 15:49 unknown med given for hives; ll1 - PMHx: 15:49 Anxiety; Depression; HTN during ; ll1 - PSHx: 15:49 L foot SX; section; ll1 - Immunization history:: Client reports having NOT received the Covid vaccine. - Social history:: Smoking status: Patient denies any tobacco usage or history of. ROS: 16:05 Eyes: Negative for injury, pain, redness, and discharge. cp 16:05 Constitutional: Negative for body aches, chills, fever, poor PO intake. 16:05 ENT: Negative for drainage from ear(s), ear pain, sore throat, difficulty swallowing, difficulty handling secretions. 16:05 Cardiovascular: Negative for chest pain, edema, palpitations. 16:05 Respiratory: Positive for shortness of breath, on exertion. Negative for cough, wheezing. 16:05 Abdomen/GI: Negative for abdominal pain, nausea, vomiting, and diarrhea. 16:05 : Positive for vaginal bleeding, Negative for urinary symptoms. 16:05 Neuro: Positive for dizziness, syncope, Negative for altered mental status, loss of consciousness, weakness. 16:05 All other systems are negative. Exam: 16:10 Constitutional: The patient appears in no acute distress, alert, awake, cp non-diaphoretic, non-toxic, well developed, well nourished, obese. 16:10 Head/Face: Normocephalic, atraumatic. cp 16:10 Eyes: Periorbital structures: appear normal, Pupils: equal, round, and reactive to light and accomodation, Extraocular movements: intact throughout, Conjunctiva: normal, no exudate, no injection, Sclera: no appreciated abnormality, Lids and lashes: appear normal, bilaterally. 16:10 ENT: External ear(s): are unremarkable, Nose: is normal, Mouth: Lips: moist, Oral mucosa: pink and intact, moist, Posterior pharynx: Airway: no evidence of obstruction, patent. 16:10 Neck: ROM/movement: is normal, is supple, without pain, no range of motions limitations. 16:10 Chest/axilla: Inspection: normal. 16:10 Cardiovascular: Rate: normal, Rhythm: regular, Edema: is not appreciated, JVD: is not appreciated. 16:10 Respiratory: the patient does not display signs of respiratory distress, Respirations: normal, no use of accessory muscles, no retractions, labored breathing, is not present, Breath sounds: are clear throughout, no decreased breath sounds, no stridor, no wheezing. 16:10 Abdomen/GI: Exam negative for discomfort, distension, guarding, Inspection: abdomen appears normal. 16:10 Back: pain, is absent, ROM is normal. 16:10 Neuro: Orientation: to person, place \\T\\ time. Mentation: is normal, Motor: moves all fours, strength is normal, Sensation: is normal. 16:15 ECG was reviewed by the Attending Physician. cp Vital Signs: 15:48 Weight 95.25 kg; Height 5 ft. 3 in. (160.02 cm); Pain 0/10; ll1 15:50 BP 128 / 59; Pulse 97; Resp 18; Temp 98.1(O); Pulse Ox 100% on R/A; ab2 17:00 BP 113 / 70; Pulse 95; Resp 16; Pulse Ox 99% on R/A; ab2 18:09 BP 121 / 67; Pulse 91; Resp 16; Pulse Ox 99% on R/A; ab2 19:17 BP 114 / 61; Pulse 91; Resp 17; Pulse Ox 98% on R/A; Pain 0/10; ab2 15:48 Body Mass Index 37.20 (95.25 kg, 160.02 cm) ll1 MDM: 15:45 Patient medically screened. vereniec 16:20 Differential Diagnosis: sepsis, anemia, pulmonary embolism, cardiac arrythmia, cp cardiomyopathy, electrolyte abnormality, pneumonia. 19:10 ECG was reviewed by the Attending Physician. 19:10 Data reviewed: vital signs, nurses notes, lab test result(s), EKG, radiologic studies, cp CT scan, plain films. Test interpretation: by ED physician or midlevel provider: ECG, plain radiologic studies. Counseling: I had a detailed discussion with the patient and/or guardian regarding: the historical points, exam findings, and any diagnostic results supporting the discharge/admit diagnosis, lab results, radiology results, the need for outpatient follow up, an OB/Gyne specialist, to return to the emergency department if symptoms worsen or persist or if there are any questions or concerns that arise at home. 05/04 15:55 Order name: Basic Metabolic Panel; Complete Time: 17:02 05/04 17:02 Interpretation: Reviewed. 05/04 15:55 Order name: CBC with Diff; Complete Time: 16:36 05/04 16:36 Interpretation: Normal except: PLT 442. 05/04 15:55 Order name: LFT's; Complete Time: 17:02 05/04 17:02 Interpretation: Normal except: ALK 124; BILIT 0.1; ALB 2.4; GLOB 4.8; A/G 0.5. 05/04 15:55 Order name: Magnesium; Complete Time: 17:02 05/04 15:55 Order name: NT PRO-BNP; Complete Time: 17:02 05/04 15:55 Order name: PT-INR; Complete Time: 16:36 05/04 16:36 Interpretation: Reviewed. 05/04 15:55 Order name: Troponin HS; Complete Time: 17:02 05/04 15:55 Order name: XRAY Chest (1 view); Complete Time: 18:26 05/04 18:27 Interpretation: Report review. 05/04 15:55 Order name: COVID-19/FLU A+B (Document "Date of Onset" if Symptomatic); Complete Time: 18:05/04 18:26 Interpretation: Reviewed. 05/04 15:55 Order name: Urine Microscopic Only; Complete Time: 17:02 05/04 17:02 Interpretation: Normal except: UWBC 5-10; SQEPI 5-10. 05/04 15:56 Order name: Ferritin; Complete Time: 17:02 05/04 15:56 Order name: CRP; Complete Time: 17:02 05/04 17:02 Interpretation: Abnormal: C-REACTIVE PROT 5.23. 05/04 16:11 Order name: Urine Dipstick-Ancillary; Complete Time: 16:36 [facility] 05/04 16:36 Interpretation: Normal except: UKET Trace; UBLD Trace-intact; UPROT 1+. 05/04 16:50 Order name: Urine Culture [facility] 05/04 15:55 Order name: EKG; Complete Time: 15:56 05/04 15:55 Order name: Cardiac monitoring; Complete Time: 16:11 05/04 15:55 Order name: EKG - Nurse/Tech; Complete Time: 16:11 05/04 15:55 Order name: IV Saline Lock; Complete Time: 16:12 05/04 15:55 Order name: Labs collected and sent; Complete Time: 16:12 05/04 15:55 Order name: O2 Per Protocol; Complete Time: 16:12 05/04 15:55 Order name: O2 Sat Monitoring; Complete Time: 16:12 05/04 15:55 Order name: Urine Dipstick-Ancillary (obtain specimen); Complete Time: 16:11 05/04 16:39 Order name: CT Chest For PE Angio; Complete Time: 18:26 05/04 17:03 Order name: CT Head Brain wo Cont; Complete Time: 18:26 cp EC:15 Rate is 74 beats/min. Rhythm is regular. NC interval is normal. QRS interval is normal. cp QT interval is normal. T waves are Inverted in leads III, aVR. Interpreted by me. Reviewed by me. Administered Medications: 16:49 Drug: NS 0.9% 1000 ml Route: IV; Rate: 1 bolus; Site: right antecubital; jd3 16:49 Drug: Meclizine 25 mg Route: PO; jd3 Disposition: 05/05 08:25 Co-signature as Attending Physician, Sam Gaviria MD I agree with the assessment and [facility] plan of care. Disposition Summary: 05/04/21 19:10 Discharge Ordered Location: Home cp Problem: new cp Symptoms: have improved cp Condition: Stable cp Diagnosis - Syncope cp - Shortness of breath cp - SARS-associated coronavirus as the cause of diseases classified elsewhere cp Followup: cp - With: Private Physician - When: 2 - 3 days - Reason: Recheck today's complaints Discharge Instructions: - Discharge Summary Sheet cp - Shortness of Breath, Adult cp - Syncope cp - Aspirin and Your Heart cp - COVID-19 cp - Things to Know about the COVID-19 Pandemic - [facility] cp - 10 Things You Can Do to Manage Your COVID-19 Symptoms at Home - [facility] cp - COVID-19: Quarantine vs. Isolation - [facility] cp - Prevent the Spread of COVID-19 if You Are Sick - [facility] cp Forms: - Medication Reconciliation Form cp - Thank You Letter cp - Antibiotic Education cp - Prescription Opioid Use cp Prescriptions: - albuterol sulfate 90 mcg/actuation Inhalation HFA aerosol inhaler - inhale 1 puff by INHALATION route every 4-6 hours As needed; 1 Inhaler; cp Refills: 0, Product Selection Permitted Signatures: Dispatcher [employer] EDSam Hernández MD MD cha Page, Corey, PA PA cp Jose Rudd RN RN jd3 Maria Teresa Grimes RN RN ll1 Corrections: (The following items were deleted from the chart) 05/04 16:42 15:55 [place] ordered. cp jd3
--- NOTE | 2021-05-04 19:11 | ER ---
Nurse's Notes [facility] Name: Susan Christopher Age: 20 yrs Sex: Female : 2000 Arrival Date: 05/04/2021 Time: 15:33 Bed 30 Private MD: Diagnosis: Syncope;Shortness of breath;SARS-associated coronavirus as the cause of diseases classified elsewhere Presentation: 05/04 15:48 Chief complaint: Patient states: SOB And dizziness for 3 days. Near syncope feeling ll1 yesterday, reports full syncope event today. Had 1 week ago and tested positive for covid at that time. Coronavirus screen: Vaccine status: Patient reports being unvaccinated. Client denies travel out of the [place] in the last 14 days. difficulty breathing, fatigue, shortness of breath, Client presents with at least one sign or symptom that may indicate coronavirus-19. Standard/surgical mask placed on the client. Ebola Screen: Patient denies travel to an Ebola-affected area in the 21 days before illness onset. Initial Sepsis Screen: Does the patient meet any 2 criteria? No. Patient's initial sepsis screen is negative. Does the patient have a suspected source of infection? Yes: Productive cough/pneumonia. Risk Assessment: Do you want to hurt yourself or someone else? Patient reports no desire to harm self or others. Onset of symptoms was May 01, 2021. 15:48 Method Of Arrival: Ambulatory ll1 15:48 Acuity: SHELLY 3 ll1 Historical: - Allergies: 15:49 unknown med given for hives; ll1 - PMHx: 15:49 Anxiety; Depression; HTN during ; ll1 - PSHx: 15:49 L foot SX; section; ll1 - Immunization history:: Client reports having NOT received the Covid vaccine. - Social history:: Smoking status: Patient denies any tobacco usage or history of. Screenin:53 Abuse screen: Denies threats or abuse. Denies injuries from another. Nutritional ab2 screening: No deficits noted. Tuberculosis screening: No symptoms or risk factors identified. Fall Risk None identified. Assessment: 15:50 General: Appears in no apparent distress. comfortable, Behavior is calm, cooperative, ab2 appropriate for age. Pain: Complains of pain in face Pain currently is 4 out of 10 on a pain scale. Quality of pain is described as aching. Neuro: No deficits noted. Level of Consciousness is awake, alert, obeys commands, Oriented to person, place, time, situation, Appropriate for age Gypsum Calciner are equal bilaterally Moves all extremities. Gait is steady, Speech is normal, Facial symmetry appears normal, Reports a syncopal episode. Cardiovascular: No deficits noted. Denies chest pain, shortness of breath, Heart tones S1 S2 present Patient's skin is warm and dry. Chest pain is denied. Respiratory: No deficits noted. Airway is patent Breath sounds are clear bilaterally. GI: Abdomen is flat, non-distended, Bowel sounds present X 4 quads. Reports nausea, vomiting. : No deficits noted. No signs and/or symptoms were reported regarding the genitourinary system. EENT: No deficits noted. No signs and/or symptoms were reported regarding the EENT system. Derm: No deficits noted. No signs and/or symptoms reported regarding the dermatologic system. Vital Signs: 15:48 Weight 95.25 kg; Height 5 ft. 3 in. (160.02 cm); Pain 0/10; ll1 15:50 BP 128 / 59; Pulse 97; Resp 18; Temp 98.1(O); Pulse Ox 100% on R/A; ab2 17:00 BP 113 / 70; Pulse 95; Resp 16; Pulse Ox 99% on R/A; ab2 18:09 BP 121 / 67; Pulse 91; Resp 16; Pulse Ox 99% on R/A; ab2 19:17 BP 114 / 61; Pulse 91; Resp 17; Pulse Ox 98% on R/A; Pain 0/10; ab2 15:48 Body Mass Index 37.20 (95.25 kg, 160.02 cm) ll1 ED Course: 15:33 Patient arrived in ED. mr 15:45 Vijay Livingston is Primary Nurse. ab2 15:45 Sam Ni PA is PHCP. cp 15:45 Sam Gaviria MD is Attending Physician. cp 15:49 Triage completed. ll1 15:50 Arm band placed on Patient placed in an exam room, on a stretcher. ll1 15:53 No provider procedures requiring assistance completed. ab2 15:54 Patient has correct armband on for positive identification. Placed in gown. Bed in low ab2 position. Side rails up X2. 16:12 Inserted saline lock: 18 gauge in right antecubital area, using aseptic technique. ab2 Blood collected. 16:12 Basic Metabolic Panel Sent. ab2 16:12 CBC with Diff Sent. ab2 16:12 LFT's Sent. ab2 16:12 Magnesium Sent. ab2 16:12 NT PRO-BNP Sent. ab2 16:12 PT-INR Sent. ab2 16:12 Troponin HS Sent. ab2 17:35 XRAY Chest (1 view) In Process Unspecified. EDMS 17:50 CT Head Brain wo Cont In Process Unspecified. EDMS 17:57 CT Chest For PE Angio In Process Unspecified. EDMS 19:18 IV discontinued, intact, bleeding controlled, No redness/swelling at site. Pressure ab2 dressing applied. Administered Medications: 16:49 Drug: NS 0.9% 1000 ml Route: IV; Rate: 1 bolus; Site: right antecubital; jd3 16:49 Drug: Meclizine 25 mg Route: PO; jd3 Outcome: 19:10 Discharge ordered by MD. cp 19:17 Discharged to home ambulatory. ab2 19:17 Condition: good 19:17 Discharge instructions given to patient, Instructed on discharge instructions, follow up and referral plans. medication usage, Demonstrated understanding of instructions, follow-up care, medications, Prescriptions given X 1. 19:18 Patient left the ED. ab2 Signatures: Dispatcher [employer] [facility] Diego Dafne NiSam PA PA cp Davies, Jonathon, RN RN jd3 Maria Teresa Grimes RN RN ll1 Vijay Livingston ab2
--- NOTE | 2021-05-06 15:17 | EKG ---
Test Date: 2021-05-04 Test Time: 16:07:44 Certified Industrial Hygienist: ERASTO MEASUREMENT RESULTS: Intervals: Rate: 74 IN: 144 QRSD: 72 QT: 330 QTc: 366 [place]: P: 11 IN: 144 QRS: 30 T: 12 INTERPRETIVE STATEMENTS: Normal sinus rhythm Minimal voltage criteria for LVH, may be normal variant Borderline ECG Compared to ECG 07/29/2012 12:41:01 Left ventricular hypertrophy now present Sinus arrhythmia no longer present Electronically Signed On 05-06-21 15:14:56 FIELD ARTILLERY OFFICER by Aj Malcolm
== END 2021-05-04 19:18 | disposition home or self-care (01) ==
LOC: ER 15:29
DX: U07.1 COVID-19 (principal); R06.02 Shortness of breath
CPT/HCPCS: 93005; 87088; 85025; 87086; 80048; 36415; 83735; 85610; 80076; 87077; 87186; 84484; 82728; 83880; 0240U; 86140; 70450; 71275; 71045; 99284; Q9967; J8597; J7030; 81003; 81015

== ENCOUNTER 2022-02-18 13:20 | Emergency (ER) | payer OTHER ==
--- NOTE | 2022-02-18 14:44 | RAD REPORT ---
EXAM DESCRIPTION: US - Abdomen Exam Limited - 02/18/2022 2:33 pm CLINICAL HISTORY: Abd pain COMPARISON: No comparisons FINDINGS: The gallbladder demonstrates no gallstones. No pericholecystic fluid or gallbladder wall t hickening. The common bile duct is normal measuring 4 mm. The liver demonstrates no findings of intrahepatic biliary dilatation. IMPRESSION: Unremarkable examination.
[2022-02-18 14:53] LABS: Absolute Lymphocytes (CBC) 2.5 K/uL (0.7-4.9); Hematocrit 41.9 % (36.0-45.0); Lymphocytes % 15.6 % (15.3-44.8); MCV 84.7 fL (80-100); MPV 7.6 fL (7.6-11.3); RBC Red Blood Cell Count 4.94 M/uL (3.86-4.86)
[2022-02-18 15:17] LABS: Albumin 3.7 g/dL (3.4-5.0); Bilirubin Total 0.3 mg/dL (0.2-1.0); Potassium 3.5 mmol/L (3.5-5.1); Protein, Total 7.7 g/dL (6.4-8.2)
[2022-02-18] MEDS ORDERED: PANTOPRAZOLE 40 MG INJ ONE (15:19)
[2022-02-18] MEDS ORDERED: ONDANSETRON 4 MG/2 ML VIAL ONE (15:19)
[2022-02-18 15:57] LABS: Urine Blood Negative (Negative); Urine Glucose Negative (Negative); Urine Protein 1+ (Negative); Urine Specific Gravity >=1.030 (1.005-1.030); Urine pH 6.5 (5.0-7.0)
[2022-02-18 16:04] LABS: Urine Bacteria <20 /HPF (<20); Urine Mucus 3+ /HPF (None Seen)
--- NOTE | 2022-02-18 16:31 | RAD REPORT ---
EXAM DESCRIPTION: CTAbdomen Pelvis W Contrast - 02/18/2022 4:20 pm CLINICAL HISTORY: Abdominal pain. epigastric pain COMPARISON: Abdomen Pelvis W Contrast dated 07/09/2020; Abdomen Pelvis W Contrast dated 06/08/2020 TECHNIQUE: Biphasic CT imaging of the abdomen and pelvis was performed with 100 ml non-ionic IV cont rast. All CT scans are performed using dose optimization technique as appropriate and may include automated exposure control or mA/KV adjustment according to patient size. FINDINGS: The lung bases are clear. The liver demonstrates diffuse fatty infiltration. Spleen, pancreas, adrenal glands and kidneys are w ithin normal limits. No bowel obstruction, free air, free fluid or abscess. The appendix is normal. No evidence of signi ficant lymphadenopathy. No suspicious bony findings. IMPRESSION: No acute intra-abdominal or pelvic finding. Diffuse fatty liver.
--- NOTE | 2022-02-18 16:41 | ER ---
Nurse's Notes [facility] Name: Susan Christopher Age: 21 yrs Sex: Female : 2000 Arrival Date: 02/18/2022 Time: 13:26 Bed 14 Private MD: Diagnosis: Epigastric pain;Nausea with vomiting, unspecified Presentation: 02/18 13:39 Chief complaint: Sudden onset upper abdominal and epigastric pain that radiates to the hb back that started 2 hours ago. 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 Coronavirus screen: At this time, the client does not indicate any symptoms associated with coronavirus-19. Ebola Screen: No symptoms or risks identified at this time. Initial Sepsis Screen: Does the patient meet any 2 criteria? No. Patient's initial sepsis screen is negative. Does the patient have a suspected source of infection? No. Patient's initial sepsis screen is negative. Risk Assessment: Do you want to hurt yourself or someone else? Patient reports no desire to harm self or others. Onset of symptoms was February 18, 2022 at 11:45. 13:39 Method Of Arrival: Ambulatory 13:39 Acuity: SHELLY 3 hb Triage Assessment: 13:41 General: Appears in no apparent distress. Behavior is calm, cooperative. Neuro: Level hb of Consciousness is awake, alert, obeys commands, Oriented to person, place, time, situation. Cardiovascular: Patient's skin is warm and dry. Respiratory: Respiratory effort is even, unlabored, Respiratory pattern is regular, symmetrical. 15:00 Pain: Complains of pain in abdomen. 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 - Social history:: Smoking status: Patient denies any tobacco usage or history of. Screenin:00 Abuse screen: Denies threats or abuse. Denies injuries from another. Abuse screen:. db Nutritional screening: No deficits noted. Tuberculosis screening: No symptoms or risk factors identified. Fall Risk None identified. No fall in past 12 months (0 pts). No secondary diagnosis (0 pts). IV access (20 points). Ambulatory Aid- None/Bed Rest/Nurse Assist (0 pts). Gait- Normal/Bed Rest/Wheelchair (0 pts) Mental Status- Oriented to own ability (0 pts). Total Ramirez Fall Scale indicates No Risk (0-24 pts). Assessment: 13:30 Reassessment: Patient appears in no apparent distress at this time. Patient is alert, db oriented x 3, equal unlabored respirations, skin warm/dry/pink. patient states has upset stomach with nausea. Reassessment: states has been vomiting about twice a day. General: Appears in no apparent distress. comfortable, Behavior is calm, cooperative, appropriate for age. GI: Abdomen is flat, non-distended, Bowel sounds present X 4 quads. Abd is soft Abd is non tender. 14:30 Reassessment: Patient appears in no apparent distress at this time. No changes from db previously documented assessment. Patient and/or family updated on plan of care and expected duration. Pain level reassessed. Patient is alert, oriented x 3, equal unlabored respirations, skin warm/dry/pink. 15:30 Reassessment: Patient appears in no apparent distress at this time. No changes from db previously documented assessment. Patient and/or family updated on plan of care and expected duration. Pain level reassessed. Patient is alert, oriented x 3, equal unlabored respirations, skin warm/dry/pink. 16:15 Reassessment: Patient appears in no apparent distress at this time. No changes from db previously documented assessment. Patient and/or family updated on plan of care and expected duration. Pain level reassessed. Patient is alert, oriented x 3, equal unlabored respirations, skin warm/dry/pink. 17:00 Reassessment: Patient appears in no apparent distress at this time. No changes from db previously documented assessment. Patient and/or family updated on plan of care and expected duration. Pain level reassessed. Patient is alert, oriented x 3, equal unlabored respirations, skin warm/dry/pink. Patient states feeling better. Patient states symptoms have improved. Vital Signs: 13:39 BP 139 / 108; Pulse 96; Resp 16; Temp 97; Pulse Ox 100% on R/A; Weight 104.33 kg; hb Height 5 ft. 3 in. (160.02 cm); Pain 8/10; 15:00 BP 114 / 76; Pulse 81; Resp 18; Pulse Ox 100% ; db 17:00 BP 115 / 75; Pulse 87; Resp 16; Pulse Ox 98% on R/A; db 13:39 Body Mass Index 40.74 (104.33 kg, 160.02 cm) hb ED Course: 13:26 Patient arrived in ED. mr 13:29 Sam Ni PA is PHCP. cp 13:29 Cooper Edouard DO is Attending Physician. cp 13:41 Triage completed. hb 13:41 Arm band placed on. hb 14:35 Abdomen Limited US: gallbladder In Process Unspecified. EDMS 14:43 Natalia Wayne, RN is Primary Nurse. db 14:45 Initial lab(s) drawn, by me, sent to lab. Inserted saline lock: 22 gauge in left jw7 antecubital area, using aseptic technique. Blood collected. Missed attempt(s): 20 gauge in right antecubital area. Bleeding controlled, band aid applied, catheter tip intact. 14:45 CBC with Diff Sent. jw7 14:46 CMP Sent. jw7 14:46 Lipase Sent. jw7 15:00 Patient has correct armband on for positive identification. Bed in low position. Call db light in reach. Side rails up X 1. 15:00 No provider procedures requiring assistance completed. db 16:22 CT Abd/Pelvis - IV Contrast Only In Process Unspecified. EDMS 17:16 IV discontinued, intact, bleeding controlled, No redness/swelling at site. db Administered Medications: 15:25 Drug: Zofran (Ondansetron) 4 mg Route: IVP; Site: left antecubital; db 17:17 Follow up: Response: No adverse reaction db 15:25 Drug: ProTONIX (pantoprazole) 40 mg Route: IVP; Site: left antecubital; db 17:17 Follow up: Response: No adverse reaction db Medication: 17:17 VIS not applicable for this client. db Outcome: 16:40 Discharge ordered by MD. cp 17:16 Discharged to home ambulatory, with family. db 17:16 Condition: stable 17:16 Discharge instructions given to patient, Instructed on discharge instructions, Demonstrated understanding of instructions, follow-up care, Prescriptions given X 1. 17:17 Patient left the ED. db Signatures: Dispatcher [facility] Dafne Cortez Sam Waters PA PA cp Baxter, Heather, RN RN Johanne Colon jw7 Natalia Wayne, RN RN db
--- NOTE | 2022-02-18 16:41 | EDPHYS ---
Physician Documentation [facility] Name: Susan Christopher Age: 21 yrs Sex: Female : 2000 Arrival Date: 02/18/2022 Time: 13:26 Bed 14 Private MD: ED Physician Cooper Edouard HPI: 02/18 14:00 This 21 yrs old Female presents to ER via Ambulatory with complaints of Abdominal Pain, cp Vomiting. 14:00 The patient presents with abdominal pain in the epigastric area, in the upper abdomen. cp Onset: The symptoms/episode began/occurred 2 hour(s) ago. The symptoms do not radiate. Associated signs and symptoms: Pertinent positives: nausea and vomiting, Pertinent negatives: anorexia, chest pain, constipation, diarrhea, fever, shortness of breath, vomiting blood. The symptoms are described as constant, sudden. Modifying factors: The symptoms are alleviated by nothing. Severity of pain: in the emergency department the pain has improved mildly. 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 - Social history:: Smoking status: Patient denies any tobacco usage or history of. ROS: 14:05 Constitutional: Negative for body aches, chills, fever, poor PO intake. cp 14:05 Eyes: Negative for injury, pain, redness, and discharge. cp 14:05 ENT: Negative for drainage from ear(s), ear pain, sore throat, difficulty swallowing, difficulty handling secretions. 14:05 Cardiovascular: Negative for chest pain, edema, palpitations. 14:05 Respiratory: Negative for cough, shortness of breath, wheezing. 14:05 Abdomen/GI: Positive for abdominal pain, nausea, vomiting, Negative for diarrhea, constipation, anorexia, dysphagia. 14:05 Back: Negative for pain at rest, pain with movement. 14:05 : Negative for urinary symptoms. 14:05 Neuro: Negative for altered mental status, headache, weakness. 14:05 All other systems are negative. Exam: 14:10 Constitutional: The patient appears in no acute distress, alert, awake, cp non-diaphoretic, non-toxic, well developed, well nourished, obese. 14:10 Head/Face: Normocephalic, atraumatic. cp 14:10 Eyes: Periorbital structures: appear normal, Conjunctiva: normal, no exudate, no injection, Sclera: no appreciated abnormality, Lids and lashes: appear normal, bilaterally. 14:10 ENT: External ear(s): are unremarkable, Nose: is normal, Mouth: Lips: moist, Oral mucosa: pink and intact, moist, Posterior pharynx: Airway: no evidence of obstruction, patent. 14:10 Chest/axilla: Inspection: normal. 14:10 Cardiovascular: Rate: normal, Rhythm: regular. Vital Signs: 13:39 BP 139 / 108; Pulse 96; Resp 16; Temp 97; Pulse Ox 100% on R/A; Weight 104.33 kg; hb Height 5 ft. 3 in. (160.02 cm); Pain 8/10; 15:00 BP 114 / 76; Pulse 81; Resp 18; Pulse Ox 100% ; db 17:00 BP 115 / 75; Pulse 87; Resp 16; Pulse Ox 98% on R/A; db 13:39 Body Mass Index 40.74 (104.33 kg, 160.02 cm) hb MDM: 13:56 Patient medically screened. cp 16:40 Data reviewed: vital signs, nurses notes, lab test result(s), radiologic studies, CT cp scan, ultrasound. 16:40 Differential diagnosis: bowel obstruction, cholecystitis, Cholelithiasis, gastritis, cp pancreatitis, Peptic Ulcer Disease, Perf. Duodenal Ulcer, Perf. Gastric Ulcer. Counseling: I had a detailed discussion with the patient and/or guardian regarding: the historical points, exam findings, and any diagnostic results supporting the discharge/admit diagnosis, lab results, radiology results, the need for outpatient follow up, a family practitioner, to return to the emergency department if symptoms worsen or persist or if there are any questions or concerns that arise at home. Response to treatment: the patient's symptoms have markedly improved after treatment, and as a result, I will discharge patient. Special discussion: Based on the patient's Hx, exam, and Dx evaluation, there is no indication for emergent surgery or inpatient Tx. It is understood by the patient/guardian that if the Sx's persist or worsen they need to return immediately for re-evaluation. 02/18 13:56 Order name: CBC with Diff; Complete Time: 15:43 cp 02/18 15:43 Interpretation: Normal except: WBC 16.10; RBC 4.94; MARTA% 75.8; NEUT A 12.2. cp 02/18 13:56 Order name: CMP; Complete Time: 15:43 cp 02/18 13:56 Order name: Lipase; Complete Time: 15:43 cp 02/18 13:56 Order name: Urine Microscopic Only; Complete Time: 16:37 cp 02/18 16:37 Interpretation: Normal except: URBC 5-10; MUCUS 3+. cp 02/18 15:57 Order name: Urine Dipstick-Ancillary; Complete Time: 16:37 EDMS 02/18 16:10 Order name: Urine --Ancillary (enter results); Complete Time: 16:37 eb 02/18 13:56 Order name: Abdomen Limited US: gallbladder; Complete Time: 15:43 cp 02/18 13:56 Order name: IV Saline Lock; Complete Time: 14:45 cp 02/18 13:56 Order name: Labs collected and sent; Complete Time: 14:45 cp 02/18 13:56 Order name: Urine Dipstick-Ancillary (obtain specimen); Complete Time: 16:05 cp 02/18 13:56 Order name: Urine Test (obtain specimen); Complete Time: 16:07 cp 02/18 15:44 Order name: CT Abd/Pelvis - IV Contrast Only; Complete Time: 16:37 cp 02/18 14:18 Order name: NPO; Complete Time: 16:07 cp 02/18 16:37 Order name: PO challenge; Complete Time: 17:10 cp Administered Medications: 15:25 Drug: Zofran (Ondansetron) 4 mg Route: IVP; Site: left antecubital; db 17:17 Follow up: Response: No adverse reaction db 15:25 Drug: ProTONIX (pantoprazole) 40 mg Route: IVP; Site: left antecubital; db 17:17 Follow up: Response: No adverse reaction db Disposition Summary: 02/18/22 16:40 Discharge Ordered Location: Home cp Problem: new cp Symptoms: have improved cp Condition: Stable cp Diagnosis - Epigastric pain cp - Nausea with vomiting, unspecified cp Followup: cp - With: Private Physician - When: Tomorrow - Reason: Recheck today's complaints Discharge Instructions: - Discharge Summary Sheet cp - Abdominal Pain, Adult cp - Nausea and Vomiting, Adult cp Forms: - Medication Reconciliation Form cp - Thank You Letter cp - Antibiotic Education cp - Prescription Opioid Use cp - Work release form db Prescriptions: - Protonix 40 mg Oral Tablet - take 1 tablet by ORAL route once daily; 30 tablet; Refills: 0, Product cp Selection Permitted - Zofran 4 mg Oral Tablet - take 1 tablet by ORAL route every 12 hours As needed; 20 tablet; Refills: 0, cp Product Selection Permitted Signatures: Dispatcher [employer] EDMS Sam Ni PA PA cp Marie Zambrano, RN RN Natalia Wayne, RN RN db
[2022-02-18 17:56] VITALS: TEMP 97
[2022-02-18 17:58] VITALS: BP 115/75; O2SAT 98
== END 2022-02-18 17:17 | disposition home or self-care (01) ==
LOC: ER 13:20
DX: R10.13 Epigastric pain (principal); R11.2 Nausea with vomiting, unspecified
CPT/HCPCS: 85025; 36415; 81025; 83690; 80053; 74177; 76705; 96375; 96374; 99284; Q9967; C9113; J2405; 81003; 81015

== ENCOUNTER 2022-08-12 00:22 | Emergency (ER) | payer OTHER ==
[2022-08-12] MEDS ORDERED: IBUPROFEN 400 MG TAB ONE (01:24)
[2022-08-12] MEDS ORDERED: CEFTRIAXONE 1000 MG/VIAL ONE (01:24)
[2022-08-12] MEDS ORDERED: LIDOCAINE 1% MPF 2 ML AMPULE ONE (01:24)
[2022-08-12] MEDS ORDERED: CODEINE 30MG/APAP 300MG TAB ONE ×2 (01:24→01:25)
[2022-08-12 01:37] LABS: Specific Gravity 1.028 (1.005-1.030)
--- NOTE | 2022-08-12 02:06 | EDPHYS ---
Physician Documentation [facility] Name: Susan Christopher Age: 22 yrs Sex: Female : 2000 Arrival Date: 08/12/2022 Time: 00:22 Bed 12 Private MD: ED Physician Magdaleno Nation HPI: 08/12 02:07 This 22 yrs old Female presents to ER via Ambulatory with complaints of sp4 Cough, Congestion, Ear Pain, Sore Throat, Fever. 01:11 22-year-old female presents with acute onset of congestion, bilateral earache, sore sp4 throat, and feeling unwell.. 01:13 Patient's symptoms began 3 days ago. She reports fever at home, sore throat, bilateral sp4 earache, congestion. 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 - Social history:: Smoking status: Patient denies any tobacco usage or history of. - Family history:: not pertinent. ROS: 01:13 Constitutional: Negative for chills, and weight loss, positive for fever at home sp4 positive for feeling unwell overall Eyes: Negative for injury, pain, redness, and discharge, ENT: Negative for injury, positive bilateral earache, sore throat, pain on swallowing Neck: Negative for injury, pain, and swelling, Cardiovascular: Negative for chest pain, palpitations, and edema, Respiratory: Negative for shortness of breath, cough, wheezing, and pleuritic chest pain, Abdomen/GI: Negative for abdominal pain, nausea, vomiting, diarrhea, and constipation, Back: Negative for injury and pain, : Negative for injury, bleeding, discharge, and swelling, MS/Extremity: Negative for injury and deformity, Skin: Negative for injury, rash, and discoloration, Neuro: Negative for headache, weakness, numbness, tingling, and seizure, Psych: Negative for depression, anxiety, Allergy/Immunology: Negative for hives, rash, and allergies Endocrine: Negative for neck swelling, polydipsia, polyuria, polyphagia, and weight changes Hematologic/Lymphatic: Negative for swollen nodes, abnormal bleeding, and unusual bruising 02:07 Respiratory: Negative for shortness of breath, wheezing, and pleuritic chest pain, sp4 positive for cough Exam: 01:13 Constitutional: This is a well developed, well nourished patient who is awake, alert, sp4 and in no acute distress. Head/Face: Normocephalic, atraumatic. Eyes: Pupils equal round and reactive to light, extra-ocular motions intact. Lids and lashes normal. Conjunctiva and sclera are not injected. Cornea within normal limits. Periorbital areas with no swelling, redness, or edema. ENT: Nares patent. No nasal discharge, no septal abnormalities noted. Bilateral TM redness and opacification, bilateral ear canal redness, bilateral tonsillar redness, bilateral pharyngeal erythema, streaky exudates left tonsil. Neck: Trachea midline, no thyromegaly or masses palpated, and no cervical lymphadenopathy. Supple, full range of motion without nuchal rigidity, or vertebral point tenderness. No Meningismus. Chest/axilla: Normal chest wall appearance and motion. Nontender with no deformity. No lesions are appreciated. Cardiovascular: Regular rate and rhythm with a normal S1 and S2. No gallops, murmurs, or rubs. Normal PMI, no JVD. No pulse deficits. Respiratory: Lungs have equal breath sounds bilaterally, clear to auscultation and percussion. No rales, rhonchi or wheezes noted. No increased work of breathing, no retractions or nasal flaring. Abdomen/GI: Soft, non-tender, with normal bowel sounds. No distension or tympany. No guarding or rebound. No evidence of tenderness throughout. Back: No spinal tenderness. No costovertebral tenderness. Skin: Warm, dry with normal turgor. Normal color with no rashes, no lesions, and no evidence of cellulitis. MS/ Extremity: Pulses equal, no cyanosis. Neurovascular intact. Full, normal range of motion. Neuro: Awake and alert, GCS 15, oriented to person, place, time, and situation. Cranial nerves II-XII grossly intact. Motor strength 5/5 in all extremities. Sensory grossly intact. Psych: Awake, alert, with orientation to person, place and time. Behavior, mood, and affect are within normal limits Vital Signs: 00:41 BP 129 / 82; Pulse 97; Resp 18; Temp 98.9(O); Pulse Ox 99% on R/A; Weight 82 kg (M); kl Height 5 ft. 3 in. ; Pain 10/10; 02:14 BP 128 / 82; Pulse 92; Resp 16; Pulse Ox 98% on R/A; ll3 00:41 Body Mass Index 32.02 (82.00 kg, 160.02 cm) kl 00:41 Pain Scale: Adult kl MDM: 01:13 Differential Diagnosis: Bronchitis Influenza Upper Respiratory Infection Sinusitis sp4 Pharyngitis Otitis Media Allergic Rhinitis Asthma Exacerbation Viral Syndrome. Data reviewed: vital signs, nurses notes, lab test result(s), UPT: negative. ED course: Patient will be prescribed p.o. Zithromax, for bilateral tonsillitis, and also will be advised to take ibuprofen every 6 hours as needed for sore throat and fever. 01:51 Patient medically screened. sp4 02:04 ED course: test is negative, patient will be prescribed Zithromax p.o. for sp4 the next 5 days and given work release for 1 day on Saturday. . 08/12 01:10 Order name: Test, Urine; Complete Time: 02:04 sp4 Administered Medications: 01:30 Drug: Rocephin (cefTRIAXone) IM 1 grams Route: IM; Site: right gluteus; ll3 02:14 Follow up: Response: No adverse reaction ll3 01:30 Drug: Ibuprofen PO 800 mg Route: PO; ll3 02:14 Follow up: Response: No adverse reaction ll3 01:30 Drug: Acetaminophen-Codeine PO (300 mg-30 mg) 2 tabs Route: PO; ll3 02:14 Follow up: Response: No adverse reaction; Marked relief of symptoms ll3 Disposition Summary: 08/12/22 02:06 Discharge Ordered Location: Home sp4 Problem: new sp4 Symptoms: have improved sp4 Condition: Stable sp4 Diagnosis - Acute pharyngitis, unspecified sp4 - Acute suppurative otitis media sp4 Followup: sp4 - With: Private Physician - When: 7 - 10 days - Reason: Recheck today's complaints Discharge Instructions: - Discharge Summary Sheet sp4 - Pharyngitis sp4 Forms: - Work release form ll3 - Thank You Letter sp4 - Antibiotic Education sp4 Prescriptions: - Ibuprofen 800 mg Oral Tablet - take 1 tablet by ORAL route every 8 hours As needed take with food; 30 tablet; sp4 Refills: 0, Product Selection Permitted - Zithromax Z-Pepe 250 mg Oral Tablet - take 1 tablet by ORAL route as directed for 5 days Day 1 - take two (2) tablets sp4 one time. Day 2, 3, 4 , 5 take one (1) tablet once daily.; 6 tablet; Refills: 0, Product Selection Permitted Signatures: Dispatcher [employer] Negrita Maguire RN RN Gary Bejarano RN RN ll3 Magdaleno Nation MD MD sp4
--- NOTE | 2022-08-12 02:06 | ER ---
Nurse's Notes [facility] Name: Susan Christophre Age: 22 yrs Sex: Female : 2000 Arrival Date: 08/12/2022 Time: 00:22 Bed 12 Private MD: Diagnosis: Acute pharyngitis, unspecified;Acute suppurative otitis media Presentation: 08/12 00:41 Chief complaint: Patient states: upper respiratory symptoms since Saturday took 2 home kl covid tests reports negative result Pt states difficulty swallowing due to sore throat. Coronavirus screen: Vaccine status: Patient reports being unvaccinated. Ebola Screen: Patient negative for fever greater than or equal to 101.5 degrees Fahrenheit, and additional compatible Ebola Virus Disease symptoms. Initial Sepsis Screen: Does the patient meet any 2 criteria? HR > 90 bpm. Does the patient have a suspected source of infection? No. Patient's initial sepsis screen is negative. Risk Assessment: Do you want to hurt yourself or someone else? Patient reports no desire to harm self or others. Onset of symptoms was August 09, 2022. 00:41 Method Of Arrival: Ambulatory 00:41 Acuity: SHELLY 4 Triage Assessment: 00:44 General: Appears in no apparent distress. comfortable, Behavior is calm, cooperative. Pain: Complains of pain in throat Pain currently is 10 out of 10 on a pain scale. Respiratory: Airway is patent Trachea midline Respiratory effort is even, unlabored, Respiratory pattern is regular, symmetrical, Breath sounds are clear bilaterally. 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 - Social history:: Smoking status: Patient denies any tobacco usage or history of. - Family history:: not pertinent. Screenin:45 [facility] ED Fall Risk Assessment (Adult) History of falling in the last 3 months, kl including since admission No falls in past 3 months (0 pts) Confusion or Disorientation No (0 pts) Intoxicated or Sedated No (0 pts) Impaired Gait No (0 pts) Mobility Assist Device Used No (0 pt) Altered Elimination No (0 pt) Score/Fall Risk Level 0 - 2 = Low Risk. Abuse screen: Denies threats or abuse. Nutritional screening: No deficits noted. Tuberculosis screening: No symptoms or risk factors identified. Vital Signs: 00:41 BP 129 / 82; Pulse 97; Resp 18; Temp 98.9(O); Pulse Ox 99% on R/A; Weight 82 kg (M); kl Height 5 ft. 3 in. ; Pain 10/10; 02:14 BP 128 / 82; Pulse 92; Resp 16; Pulse Ox 98% on R/A; ll3 00:41 Body Mass Index 32.02 (82.00 kg, 160.02 cm) kl 00:41 Pain Scale: Adult ED Course: 00:30 Patient arrived in ED. [id number] 00:43 Triage completed. kl 00:45 Patient has correct armband on for positive identification. kl 00:45 No provider procedures requiring assistance completed. Patient did not have IV access kl during this emergency room visit. 01:10 Magdaleno Nation MD is Attending Physician. sp4 02:13 Arm band placed on Patient placed in an exam room, on a stretcher, on pulse oximetry. ll3 Administered Medications: 01:30 Drug: Rocephin (cefTRIAXone) IM 1 grams Route: IM; Site: right gluteus; ll3 02:14 Follow up: Response: No adverse reaction ll3 01:30 Drug: Ibuprofen PO 800 mg Route: PO; ll3 02:14 Follow up: Response: No adverse reaction ll3 01:30 Drug: Acetaminophen-Codeine PO (300 mg-30 mg) 2 tabs Route: PO; ll3 02:14 Follow up: Response: No adverse reaction; Marked relief of symptoms ll3 Medication: 00:45 VIS not applicable for this client. Outcome: 02:06 Discharge ordered by . sp4 02:13 Discharged to home ambulatory, with family. ll3 02:13 Condition: stable 02:13 Discharge instructions given to patient, Instructed on discharge instructions, follow up and referral plans. medication usage, Demonstrated understanding of instructions, follow-up care, medications, Prescriptions given X 2. 02:14 Patient left the ED. 3 Signatures: Negrita Grimes RN RN Pat Torrez Gary Godwin RN RN 3 Magdaleno Nation, MD sp4
[2022-08-12 02:26] VITALS: TEMP 98.9
[2022-08-12 02:28] VITALS: BP 128/82; O2SAT 98
== END 2022-08-12 02:14 | disposition home or self-care (01) ==
LOC: ER 00:22
DX: J02.9 Acute pharyngitis, unspecified (principal); H66.003 Acute suppurative otitis media without spontaneous rupture of ear drum, bilateral
CPT/HCPCS: 81025; J0696; 96372; 99284

== ENCOUNTER 2022-11-17 14:02 | Emergency (ER) | payer OTHER ==
[2022-11-17 14:58] LABS: Specific Gravity 1.016 (1.005-1.030)
[2022-11-17 14:59] LABS: Specific Gravity 1.016 (1.005-1.030); Urine Bacteria None Seen /HPF (<20); Urine Bilirubin NEGATIVE (Negative); Urine Blood Negative (Negative); Urine Clarity Extremely Turbid (Clear); Urine Color Light-Yellow (Yellow); Urine Glucose NEGATIVE (Negative); Urine Mucus Slight /HPF (None Seen); Urine Protein NEGATIVE (Negative); Urine RBC None Seen /HPF (None Seen); Urine Urobilinogen Normal (Normal)
[2022-11-17] MEDS ORDERED: ONDANSETRON 4 MG/2 ML VIAL ONE (15:02)
[2022-11-17] MEDS ORDERED: NA CHLORIDE 0.9% 1,000 ML ONE (15:03)
[2022-11-17 15:10] LABS: Absolute Lymphocytes (CBC) 3.5 K/uL (0.7-4.9); Hematocrit 40.4 % (36.0-45.0); Lymphocytes % 25.8 % (15.3-44.8); MCV 86.5 fL (80-100); MPV 8.2 fL (7.6-11.3); RBC Red Blood Cell Count 4.67 M/uL (3.86-4.86)
[2022-11-17 15:14] LABS: Albumin 3.3 g/dL (3.4-5.0); Bilirubin Total 0.2 mg/dL (0.2-1.0); Potassium 3.8 mEq/L (3.5-5.1); Protein, Total 7.4 g/dL (6.4-8.2)
--- NOTE | 2022-11-17 16:56 | RAD REPORT ---
EXAM DESCRIPTION: CTAbdomen Pelvis W Contrast - 11/17/2022 4:45 pm CLINICAL HISTORY: Abdominal pain. ABD PAIN COMPARISON: <Comparisons> TECHNIQUE: Biphasic CT imaging of the abdomen and pelvis was performed with 100 ml non-ionic IV cont rast. All CT scans are performed using dose optimization technique as appropriate and may include automated exposure control or mA/KV adjustment according to patient size. FINDINGS: The lung bases are clear. The liver demonstrates diffuse fatty infiltration. Spleen, pancreas, adrenal glands and kidneys are w ithin normal limits. Punctate calculus inferior calyx right kidney. No bowel obstruction, free air, free fluid or abscess. The appendix is normal. No evidence of signi ficant lymphadenopathy. No suspicious bony findings. IMPRESSION: No acute intra-abdominal or pelvic finding.
--- NOTE | 2022-11-17 17:12 | EDPHYS ---
Physician Documentation [facility] Name: Susan Christopher Age: 22 yrs Sex: Female : 2000 Arrival Date: 11/17/2022 Time: 14:02 Bed 18 Private MD: ED Physician Tereso Triana HPI: 11/17 17:24 This 22 yrs old Female presents to ER via Ambulatory with complaints of Back Pain, kb Abdominal Pain, Nausea. 17:23 The patient has not experienced similar symptoms in the past. The patient has not kb recently seen a physician. 17:24 The patient presents with vaginal bleeding that is light, spotting. Onset: The kb symptoms/episode began/occurred 3 week(s) ago. Modifying factors: The symptoms are alleviated by nothing, the symptoms are aggravated by nothing. Associated signs and symptoms: Pertinent positives: nausea, vaginal bleeding, abd pain, back pain, dizziness. Severity of symptoms: At their worst the symptoms were mild, moderate, in the emergency department the symptoms are unchanged. Pt reports vaginal bleeding that is different from her normal periods, nausea, dizziness, abd pain, and back pain. States she thought she may be and having a miscarriage so she came to see what was going on. 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 - Social history:: Smoking status: Patient denies any tobacco usage or history of. ROS: 16:23 Constitutional: Negative for fever, chills, and weight loss. kb 16:50 Abdomen/GI: Positive for abdominal pain, nausea and vomiting. kb 16:50 : Positive for vaginal bleeding. 16:50 Neuro: Positive for dizziness. 16:50 All other systems are negative. Exam: 17:23 Constitutional: This is a well developed, well nourished patient who is awake, alert, kb and in no acute distress. Head/Face: Normocephalic, atraumatic. ENT: Moist Mucous membranes Cardiovascular: Regular rate and rhythm with a normal S1 and S2. No gallops, murmurs, or rubs. No pulse deficits. Respiratory: Respirations even and unlabored. No increased work of breathing. Talking in full sentences Skin: Warm, dry with normal turgor. Normal color. MS/ Extremity: Pulses equal, no cyanosis. Neurovascular intact. Full, normal range of motion. Neuro: Awake and alert, GCS 15, oriented to person, place, time, and situation. Moves all extremities. Normal gait. 17:23 Abdomen/GI: Inspection: abdomen appears normal, Bowel sounds: normal, Palpation: soft, in all quadrants, mild abdominal tenderness, in the right lower quadrant. Vital Signs: 14:18 BP 131 / 104; Pulse 104; Resp 18; Pulse Ox 98% on R/A; iw 14:42 BP 138 / 114; Pulse 98; Resp 16; Pulse Ox 99% on R/A; iw 15:30 BP 100 / 81; Pulse 87; Resp 16; Pulse Ox 97% on R/A; db 17:00 BP 116 / 81; Pulse 86; Resp 16; Pulse Ox 97% on R/A; db MDM: 14:11 Patient medically screened. kb 16:51 Data reviewed: vital signs, nurses notes. kb 17:26 Differential diagnosis: appendicitis, dysmenorrhea, ectopic , ovarian cyst, kb urinary tract infection. Counseling: I had a detailed discussion with the patient and/or guardian regarding: the historical points, exam findings, and any diagnostic results supporting the discharge/admit diagnosis, lab results, radiology results, the need for outpatient follow up, a family practitioner, an OB/Gyne specialist, to return to the emergency department if symptoms worsen or persist or if there are any questions or concerns that arise at home. 11/17 14:33 Order name: CBC with Diff; Complete Time: 15:20 kb 11/17 14:33 Order name: CMP; Complete Time: 15:17 kb 11/17 14:33 Order name: Lipase; Complete Time: 15:17 kb 11/17 14:33 Order name: Test, Urine; Complete Time: 15:06 kb 11/17 14:33 Order name: Urinalysis w/ reflexes; Complete Time: 15:06 kb 11/17 16:23 Order name: CT Abd/Pelvis - IV Contrast Only; Complete Time: 17:00 kb 11/17 14:33 Order name: IV Saline Lock; Complete Time: 14:50 kb 11/17 14:33 Order name: Labs collected and sent; Complete Time: 14:50 kb Administered Medications: 14:50 Drug: NS 0.9% IV 1000 ml Route: IV; Rate: 1 bolus; Site: right antecubital; iw 16:30 Follow up: Response: No adverse reaction; IV Status: Completed infusion; IV Intake: db 1000ml 14:51 Drug: Ondansetron IVP 4 mg Route: IVP; Site: right antecubital; iw 17:22 Follow up: Response: No adverse reaction db Disposition: 19:17 I reviewed the patient's care provided by Advanced Practice Provider \T\ agree w/ the cp3 diagnosis \T\ care plan. I personally saw the pt \T\ performed a substantive portion of the visit, incldng all aspects of the (History/Exam/Medical Decision Making). Disposition Summary: 11/17/22 17:11 Discharge Ordered Location: Home kb Condition: Stable kb Diagnosis - Abdominal pain, Generalized kb - Abnormal uterine and vaginal bleeding, unspecified kb - Dizziness and giddiness kb Followup: kb - With: Emergency Department - When: As needed - Reason: Worsening of condition Followup: kb - With: Private Physician - When: 2 - 3 days - Reason: Recheck today's complaints, Continuance of care, Re-evaluation by your physician Discharge Instructions: - Discharge Summary Sheet kb - Abdominal Pain, Adult, [id number] kb - Abnormal Uterine Bleeding, [id number] kb - Dizziness, [id number] kb Forms: - Medication Reconciliation Form kb - Thank You Letter kb - Antibiotic Education kb - Prescription Opioid Use kb - Patient Portal Instructions kb Signatures: Dispatcher [employer] Alanis Alaniz FNP-C FNP-Tereso Rodrigues MD MD cp3 Trixie Urena, RN RN iw Natalia Wayne, RN RN db
--- NOTE | 2022-11-17 17:12 | ER ---
Nurse's Notes [facility] Name: Susan Christopher Age: 22 yrs Sex: Female : 2000 Arrival Date: 11/17/2022 Time: 14:02 Bed 18 Private MD: Diagnosis: Abdominal pain, Generalized;Abnormal uterine and vaginal bleeding, unspecified;Dizziness and giddiness Presentation: 11/17 14:18 Chief complaint: Patient states: thinks she may have had a miscarriage , she had an iw irregular period and was having symptoms of such as back pain, nausea, her test two days ago was negative. Coronavirus screen: At this time, the client does not indicate any symptoms associated with coronavirus-19. Ebola Screen: Patient negative for fever greater than or equal to 101.5 degrees Fahrenheit, and additional compatible Ebola Virus Disease symptoms Patient denies exposure to infectious person. Patient denies travel to an Ebola-affected area in the 21 days before illness onset. No symptoms or risks identified at this time. Initial Sepsis Screen: Does the patient meet any 2 criteria? No. Patient's initial sepsis screen is negative. Does the patient have a suspected source of infection? No. Patient's initial sepsis screen is negative. Risk Assessment: Do you want to hurt yourself or someone else? Patient reports no desire to harm self or others. Onset of symptoms. 14:18 Method Of Arrival: Ambulatory iw 14:18 Acuity: SHELLY 3 iw Triage Assessment: 15:00 General: Appears in no apparent distress. comfortable. Musculoskeletal: No deficits db noted. No signs and/or symptoms reported regarding the musculoskeletal system. 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 - Social history:: Smoking status: Patient denies any tobacco usage or history of. Screenin:50 [facility] ED Fall Risk Assessment (Adult) History of falling in the last 3 months, db including since admission No falls in past 3 months (0 pts) Confusion or Disorientation No (0 pts) Intoxicated or Sedated No (0 pts) Impaired Gait No (0 pts) Mobility Assist Device Used No (0 pt) Altered Elimination No (0 pt) Score/Fall Risk Level 0 - 2 = Low Risk Oriented to surroundings, Maintained a safe environment. Abuse screen: Denies threats or abuse. Denies injuries from another. Nutritional screening: No deficits noted. Tuberculosis screening: No symptoms or risk factors identified. Assessment: 14:32 Reassessment: Patient appears in no apparent distress at this time. Patient and/or iw family updated on plan of care and expected duration. Pain level reassessed. Patient is alert, oriented x 3, equal unlabored respirations, skin warm/dry/pink. General: Appears in no apparent distress. comfortable, Behavior is calm, cooperative. Pain: Complains of pain in abdomen. Neuro: Level of Consciousness is awake, alert, obeys commands, Oriented to person, place, time, situation. 14:58 Reassessment: Patient appears in no apparent distress at this time. Patient and/or iw family updated on plan of care and expected duration. Pain level reassessed. Patient is alert, oriented x 3, equal unlabored respirations, skin warm/dry/pink. GI: Abdomen is non-distended. 16:00 Reassessment: Patient appears in no apparent distress at this time. Patient and/or db family updated on plan of care and expected duration. Pain level reassessed. Patient is alert, oriented x 3, equal unlabored respirations, skin warm/dry/pink. 17:00 Reassessment: Patient appears in no apparent distress at this time. Patient and/or db family updated on plan of care and expected duration. Pain level reassessed. Patient is alert, oriented x 3, equal unlabored respirations, skin warm/dry/pink. Patient states feeling better. Patient states symptoms have improved. Vital Signs: 14:18 BP 131 / 104; Pulse 104; Resp 18; Pulse Ox 98% on R/A; iw 14:42 BP 138 / 114; Pulse 98; Resp 16; Pulse Ox 99% on R/A; iw 15:30 BP 100 / 81; Pulse 87; Resp 16; Pulse Ox 97% on R/A; db 17:00 BP 116 / 81; Pulse 86; Resp 16; Pulse Ox 97% on R/A; db ED Course: 14:05 Patient arrived in ED. mg5 14:11 Alanis Torrez FNP-C is PHCP. kb 14:11 Tereso Triana MD is Attending Physician. kb 14:20 Triage completed. iw 14:20 Arm band placed on. iw 14:32 Trixie Urena, RN is Primary Nurse. iw 14:48 Inserted saline lock: 20 gauge in right antecubital area, using aseptic technique. db Blood collected. 14:58 Patient has correct armband on for positive identification. Bed in low position. Call iw light in reach. Side rails up X 1. 16:47 CT Abd/Pelvis - IV Contrast Only In Process Unspecified. EDMS 17:22 Provided Education on: DISCHARGE. db 17:22 No provider procedures requiring assistance completed. IV discontinued, intact, db bleeding controlled, No redness/swelling at site. Administered Medications: 14:50 Drug: NS 0.9% IV 1000 ml Route: IV; Rate: 1 bolus; Site: right antecubital; iw 16:30 Follow up: Response: No adverse reaction; IV Status: Completed infusion; IV Intake: db 1000ml 14:51 Drug: Ondansetron IVP 4 mg Route: IVP; Site: right antecubital; iw 17:22 Follow up: Response: No adverse reaction db Medication: 17:22 VIS not applicable for this client. db Intake: 16:30 IV: 1000ml; Total: 1000ml. db Outcome: 17:11 Discharge ordered by . kb 17:22 Discharged to home ambulatory. db 17:22 Condition: stable 17:22 Discharge instructions given to patient, Instructed on discharge instructions, follow up and referral plans. 17:24 Patient left the ED. db Signatures: Dispatcher [employer] EDWV Alanis Torrez FNP-C PURCHASING MANAGER-CkTrixie Miranda, RN RN iw Natalia Wayne RN RN db Silvia Amin mg5
[2022-11-17 18:09] VITALS: O2SAT 97
[2022-11-17 18:11] VITALS: BP 116/81
== END 2022-11-17 17:24 | disposition home or self-care (01) ==
LOC: ER 14:02
DX: R10.84 Generalized abdominal pain (principal); N93.9 Abnormal uterine and vaginal bleeding, unspecified; R42 Dizziness and giddiness
CPT/HCPCS: 96361; 85025; 81001; 36415; 81025; 83690; 80053; 74177; 96374; 99284; Q9967; J2405; J7030

== ENCOUNTER 2023-12-03 23:31 | Emergency (ER) | payer OTHER ==
--- NOTE | 2023-12-04 01:08 | EDPHYS ---
Physician Documentation [facility] Name: Susan Christopher Age: 23 yrs Sex: Female : 2000 Arrival Date: 12/03/2023 Time: 23:31 Bed 1 Private MD: ED Physician Sam Gaviria HPI: 12/03 00:11 This 23 yrs old Female presents to ER via Ambulatory with complaints of abdominal pain, sb4 34 weeks preg. 00:14 The patient presents to the emergency department with abdominal pain, of the anterior sb4 aspect of left lateral abdomen, that started just prior to arrival. The estimated gestational age is 34 weeks. course: care: with a nurse adz worker, Leakage of Fluid: none appreciated, Risk/complications: no obvious risks or complications are appreciated. Previous pregnancies:. Associated signs and symptoms: Pertinent positives: abdominal pain. The patient has not experienced similar symptoms in the past. The patient has not recently seen a physician. 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 denies any vaginal bleeding or other leakage of fluid. 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 - Infectious Disease History:: Denies. - Social history:: Smoking status: Patient/guardian denies using tobacco. ROS: 12/03 00:14 Constitutional: Negative for fever, chills, and weight loss, sb4 Abdomen/GI: Positive for abdominal pain, All other systems are negative, Exam: 00:14 Constitutional: This is a well developed, well nourished patient who is awake, alert, sb4 and in no acute distress. Head/Face: Normocephalic, atraumatic. Eyes: Extra-ocular motions intact. Periorbital areas with no swelling, redness, or edema. ENT: Mucous membranes moist. Cardiovascular: Regular rate and rhythm with a normal S1 and S2. Respiratory: Lungs have equal breath sounds bilaterally, clear to auscultation and percussion. No rales, rhonchi or wheezes noted. No increased work of breathing, no retractions or nasal flaring. Abdomen/GI: Soft, non-tender, no distension. Skin: Warm, dry with normal turgor. Normal color with no rashes, no lesions, and no evidence of cellulitis. MS/ Extremity: Pulses equal, no cyanosis. Neurovascular intact. Full, normal range of motion. Vital Signs: 12/02 23:55 Weight 108.86 kg; Height 5 ft. 3 in. ; Pain 5/10; vc1 12/03 00:00 BP 127 / 86; Pulse 94; Resp 18; Temp 97; Pulse Ox 99% ; vc1 01:20 BP 121 / 81; Pulse 89; Resp 18; Pulse Ox 99% on R/A; pc2 12/02 23:55 Body Mass Index 42.51 (108.86 kg, 160.02 cm) vc1 12/02 23:55 Pain Scale: Adult vc1 MDM: 00:05 Patient medically screened. sb4 00:58 Data reviewed: vital signs, nurses notes, radiologic studies, and as a result, I will sb4 discharge patient. Counseling: I had a detailed discussion with the patient and/or guardian regarding the historical points, exam findings, and any diagnostic results supporting the discharge/admit diagnosis, radiology results, to return to the emergency department if symptoms worsen or persist or if there are any questions or concerns that arise at home. 12/03 00:00 Order name: OB Limited sb4 Administered Medications: No medications were administered Disposition: 12/04 01:17 Co-signature as Attending Physician, Sam Gaviria MD I agree with the assessment and verenice plan of care. Disposition Summary: 12/04/23 01:07 Discharge Ordered Notes: Location: Home sb4 Problem: new sb4 Symptoms: have improved sb4 Condition: Stable sb4 Diagnosis - Contusion of abdominal wall, initial encounter sb4 - 34 weeks gestation of sb4 Followup: sb4 - With: Emergency Department - When: As needed - Reason: If symptoms return, Worsening of condition Discharge Instructions: - Discharge Summary Sheet sb4 - Abdominal Pain During sb4 Forms: - Patient Portal Instructions sb4 - Leadership Thank You Letter sb4 Signatures: Dispatcher [employer] Sam Shanks MD MD cha Calcote, Vanessa, RN RN vc1 Rossy Parker PA-C PA-C sb4
--- NOTE | 2023-12-04 01:08 | ER ---
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 Coronavirus screen: Client denies travel out of the [place] in the last 14 days. At this time, the client does not indicate any symptoms associated with coronavirus-19. Ebola Screen: Patient negative for fever greater than or equal to 101.5 degrees Fahrenheit, and additional compatible Ebola Virus Disease symptoms Patient denies exposure to infectious person. Patient denies travel to an Ebola-affected area in the 21 days before illness onset. No symptoms or risks identified at this time. Initial Sepsis Screen: Does the patient meet any 2 criteria? No. Patient's initial sepsis screen is negative. Does the patient have a suspected source of infection? No. Patient's initial sepsis screen is negative. Risk Assessment: Do you want to hurt yourself or someone else? Patient reports no desire to harm self or others. Onset of symptoms was December 03, 2023 at 22:40. 23:55 Method Of Arrival: Ambulatory vc1 23:55 Acuity: SHELLY 3 vc1 Triage Assessment: 23:58 General: Appears in no apparent distress. comfortable, Behavior is calm, cooperative, vc1 appropriate for age. Pain: Complains of pain in posterior aspect of left lateral abdomen and anterior aspect of left lateral abdomen Pain does not radiate. Pain currently is 5 out of 10 on a pain scale. EENT: No deficits noted. No signs and/or symptoms were reported regarding the EENT system. Neuro: Level of Consciousness is awake, alert, obeys commands, Oriented to person, place, time, situation, Appropriate for age. : Denies vaginal bleeding. 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 - Infectious Disease History:: Denies. - Social history:: Smoking status: Patient/guardian denies using tobacco. Screenin:55 [facility] ED Fall Risk Assessment (Adult) History of falling in the last 3 months, ha1 including since admission No falls in past 3 months (0 pts) Confusion or Disorientation No (0 pts) Intoxicated or Sedated No (0 pts) Impaired Gait No (0 pts) Mobility Assist Device Used No (0 pt) Altered Elimination No (0 pt) Score/Fall Risk Level 0 - 2 = Low Risk Oriented to surroundings, Maintained a safe environment, Educated pt \T\ family on fall prevention, incl call for assistance when getting out of bed, Hourly rounding (assess needs \T\ fall precautionary measures) done. Abuse screen: Denies threats or abuse. Denies injuries from another. Nutritional screening: No deficits noted. Tuberculosis screening: No symptoms or risk factors identified. Assessment: 23:55 General: Appears comfortable, Behavior is calm, cooperative. Pain: Complains of pain in ha1 posterior aspect of left lateral abdomen Pain does not radiate. Pain currently is 5 out of 10 on a pain scale. Quality of pain is described as heavy, pressure. Neuro: Level of Consciousness is awake, alert, obeys commands. Cardiovascular: Capillary refill < 3 seconds Patient's skin is warm and dry. Respiratory: Airway is patent Respiratory effort is even, unlabored, Respiratory pattern is regular, symmetrical. GI: Abdomen is round Bowel sounds present X 4 quads. Reports lower abdominal pain. Vital Signs: 23:55 Weight 108.86 kg; Height 5 ft. 3 in. ; Pain 5/10; vc1 12/03 00:00 BP 127 / 86; Pulse 94; Resp 18; Temp 97; Pulse Ox 99% ; vc1 01:20 BP 121 / 81; Pulse 89; Resp 18; Pulse Ox 99% on R/A; pc2 12/02 23:55 Body Mass Index 42.51 (108.86 kg, 160.02 cm) vc1 12/02 23:55 Pain Scale: Adult vc1 ED Course: 12/02 23:37 Patient arrived in ED. jj6 23:55 Patient has correct armband on for positive identification. Placed in gown. Bed in low ha1 position. Call light in reach. Side rails up X 1. 23:57 Triage completed. vc1 23:58 Arm band placed on right wrist. vc1 12/03 00:05 Rossy Parker PA-C is PHCP. sb4 00:05 Sam Gaviria MD is Attending Physician. sb4 00:10 US at bedside. pc2 00:14 Yumiko Woody, RN is Primary Nurse. pc2 00:36 OB Limited US In Process Unspecified. EDMS 01:20 No provider procedures requiring assistance completed. pc2 01:21 Provided Education on: f/u instructions. pc2 01:21 Patient did not have IV access during this emergency room visit. pc2 Administered Medications: No medications were administered Medication: 01:20 VIS not applicable for this client. pc2 Outcome: 01:07 Discharge ordered by . sb4 01:20 Discharged to home ambulatory, pc2 01:20 Condition: stable 01:20 Discharge instructions given to patient, Instructed on discharge instructions, follow up and referral plans. Demonstrated understanding of instructions, follow-up care, 01:22 Patient left the ED. pc2 Signatures: Dispatcher [employer] EDMS Pat Bojorquez [id number] Zoila Bardales RN RN vc1 Ila Parisi RN RN 1 Rossy Parker PA-C PA-C sb4 Yuimko Woody, RN RN pc2
[2023-12-04 01:36] VITALS: TEMP 97; O2SAT 99
[2023-12-04 01:37] VITALS: BP 121/81
--- NOTE | 2023-12-04 16:42 | RAD REPORT ---
EXAM DESCRIPTION: US - OB Limited - 12/04/2023 12:34 am RadLex: US LIMITED CLINICAL HISTORY: 23 years Female, BLUNT TRAUMA COMPARISON: None. FINDINGS: Limited transabdominal images were obtained. Single live intrauterine is identif ied with cephalic presentation. Femur length of 6.6 cm, compatible with estimated gestational age of 33 weeks and 6 days. BPD, HC, and ADC were not assessed. Fundal placenta. heart rate of 143 bpm . SAMIRA of 22.9 cm. Adnexal regions are unremarkable. Cervix is not well visualized due to transabdominal technique. IMPRESSION: Single live intrauterine with parameters as above. Electronically signed by: Pita Luque MD 12/04/2023 01:01 AM CDT RP Due to temporary technical issues with the PACS/Fluency reporting system, reports are being signed by the in house radiologists without review as a courtesy to insure prompt reporting. The interpreting radiologist is fully responsible for the content of the report.
== END 2023-12-04 01:22 | disposition home or self-care (01) ==
LOC: ER 23:31
DX: O9A.213 Injury, poisoning and certain other consequences of external causes complicating pregnancy, third trimester (principal); S30.1XXA Contusion of abdominal wall, initial encounter; O16.3 Unspecified maternal hypertension, third trimester; Z3A.34 34 weeks gestation of pregnancy
CPT/HCPCS: 76815

== ENCOUNTER 2024-12-02 13:46 | Emergency (ER) | payer OTHER ==
[2024-12-02] MEDS ORDERED: NA CHLORIDE 0.9% 1,000 ML ONE (15:20)
[2024-12-02 15:44] LABS: Absolute Lymphocytes (CBC) 3.3 K/uL (0.7-4.9); Hematocrit 41.9 % (36.0-45.0); Hemoglobin 13.9 g/dL (12.0-15.0); MCH 28.6 pg (27.0-35.0); MCHC 33.1 g/dL (32.0-36.0); MCV 86.3 fL (80-100); MPV 7.5 fL (7.6-11.3); Nucleated RBC Absolute Count 0.0 (0-0); Nucleated Red Blood Cells % 0.1 % (0-0); RBC Red Blood Cell Count 4.85 M/uL (3.86-4.86); White Blood Count 13.00 thou/uL (4.3-10.9)
[2024-12-02 16:05] LABS: Anion Gap 9.6 mEq/L (5.0-15.0); BUN Blood Urea Nitrogen 9 mg/dL (7-18); Glucose Level 108 mg/dL (74-106); Potassium 3.6 mEq/L (3.5-5.1)
[2024-12-02 16:06] LABS: HCG, Quantitative < 1 mIU/mL (1-3)
--- NOTE | 2024-12-02 16:53 | EDPHYS ---
Physician Documentation [facility] Name: Susan Christopher Age: 24 yrs Sex: Female : 2000 Arrival Date: 12/02/2024 Time: 13:46 Bed 19 Private MD: ED Physician Sam Gaviria HPI: 12/02 16:48 This 24 yrs old Female presents to ER via Ambulatory with complaints of verneice Vaginal Bleeding, + Preg <12wks. 16:48 The patient presents to the emergency department with vaginal bleeding, that is light. verenice The estimated gestational age is 6 weeks. Associated signs and symptoms: The patient has no apparent associated signs or symptoms. The patient has not experienced similar symptoms in the past. 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 - Infectious Disease History:: Denies. - Social history:: Smoking status: Patient denies any tobacco usage or history of. ROS: 16:49 Constitutional: Negative for fever, chills, and weight loss, Eyes: Negative for injury, verenice pain, redness, and discharge, ENT: Negative for injury, pain, and discharge, Neck: Negative for injury, pain, and swelling, Cardiovascular: Negative for chest pain, palpitations, and edema, Respiratory: Negative for shortness of breath, cough, wheezing, and pleuritic chest pain, Abdomen/GI: Negative for abdominal pain, nausea, vomiting, diarrhea, and constipation, Back: Negative for injury and pain, MS/Extremity: Negative for injury and deformity, Skin: Negative for injury, rash, and discoloration, Neuro: Negative for headache, weakness, numbness, tingling, and seizure, Psych: Negative for depression, anxiety, suicide ideation, homicidal ideation, and hallucinations, Allergy/Immunology: Negative for hives, rash, and allergies, Endocrine: Negative for neck swelling, polydipsia, polyuria, polyphagia, and marked weight changes, Hematologic/Lymphatic: Negative for swollen nodes, abnormal bleeding, and unusual bruising, 16:49 : Positive for pelvic pain, vaginal bleeding, Exam: 16:49 Constitutional: This is a well developed, well nourished patient who is awake, alert, verenice and in no acute distress. Head/Face: Normocephalic, atraumatic. Eyes: Pupils equal round and reactive to light, extra-ocular motions intact. Lids and lashes normal. Conjunctiva and sclera are non-icteric and not injected. Cornea within normal limits. Periorbital areas with no swelling, redness, or edema. ENT: Nares patent. No nasal discharge, no septal abnormalities noted. Tympanic membranes are normal and external auditory canals are clear. Oropharynx with no redness, swelling, or masses, exudates, or evidence of obstruction, uvula midline. Mucous membranes moist. Neck: Trachea midline, no thyromegaly or masses palpated, and no cervical lymphadenopathy. Supple, full range of motion without nuchal rigidity, or vertebral point tenderness. No Meningismus. Chest/axilla: Normal chest wall appearance and motion. Nontender with no deformity. No lesions are appreciated. Cardiovascular: Regular rate and rhythm with a normal S1 and S2. No gallops, murmurs, or rubs. Normal PMI, no JVD. No pulse deficits. Respiratory: Lungs have equal breath sounds bilaterally, clear to auscultation and percussion. No rales, rhonchi or wheezes noted. No increased work of breathing, no retractions or nasal flaring. Abdomen/GI: Soft, non-tender, with normal bowel sounds. No distension or tympany. No guarding or rebound. No evidence of tenderness throughout. Back: No spinal tenderness. No costovertebral tenderness. Full range of motion. Skin: Warm, dry with normal turgor. Normal color with no rashes, no lesions, and no evidence of cellulitis. MS/ Extremity: Pulses equal, no cyanosis. Neurovascular intact. Full, normal range of motion., bilateral aka Neuro: Awake and alert, GCS 15, oriented to person, place, time, and situation. Cranial nerves II-XII grossly intact. Motor strength 5/5 in all extremities. Sensory grossly intact. Cerebellar exam normal. Normal gait. Psych: Awake, alert, with orientation to person, place and time. Behavior, mood, and affect are within normal limits. Vital Signs: 13:57 BP 132 / 92; Pulse 98; Resp 18; Temp 97.7(TE); Pulse Ox 94% on R/A; Weight 125.19 kg; cm10 Height 5 ft. 3 in. ; Pain 6/10; 18:00 BP 141 / 88; Pulse 89; Resp 16; Pulse Ox 98% on R/A; db 13:57 Body Mass Index 48.89 (125.19 kg, 160.02 cm) cm10 13:57 Pain Scale: Adult cm10 MDM: 13:50 Medical Screening Exam initiated verenice 16:49 Differential diagnosis: menometrorrhagia, menorrhea, nonspecific abdominal pain, verenice hemorrhage, ruptured ectopic , urinary tract infection, vaginosis. Data reviewed: vital signs, nurses notes, lab test result(s), radiologic studies, ultrasound. Consideration of Admission/Observation Escalation of care including admission/observation considered. I considered the following discharge prescriptions or medication management in the emergency department Medications were administered in the Emergency Department. See MAR. Independent interpretation of the following test(s) in the Emergency Department Radiology Department Ultrasound: My interpretation is VAG PROBE USG. Test considered but Not performed: MRI: NO MRI. Historians other than the Patient: PT WELL INFORMED. Care significantly affected by the following chronic conditions: ANXIETY, HTN PREG. Counseling: I had a detailed discussion with the patient and/or guardian regarding the historical points, exam findings, and any diagnostic results supporting the discharge/admit diagnosis, lab results, radiology results, the need for outpatient follow up, for definitive care, an OB/Gyne specialist. 12/02 13:53 Order name: Abo/rh Typing; Complete Time: 16:43 [facility] 12/02 13:53 Order name: Basic Metabolic Panel; Complete Time: 16:43 [facility] 12/02 13:53 Order name: CBC with Diff; Complete Time: 16:43 [facility] 12/02 13:53 Order name: Test, Urine; Complete Time: 16:43 [facility] 12/02 13:53 Order name: Quantitative Hcg; Complete Time: 16:43 [facility] 12/02 16:43 Order name: US Transvaginal Ob [facility] 12/02 13:53 Order name: IV Saline Lock; Complete Time: 15:26 [facility] 12/02 13:53 Order name: Labs collected and sent; Complete Time: 15:26 [facility] 12/02 13:53 Order name: NPO; Complete Time: 15:40 verenice Administered Medications: 15:38 Drug: NS 0.9% IV 1000 ml IV at 1000 ml once; to be given as a bolus over 60 minutes ll1 Route: IV; Rate: 1000 ml; Site: left antecubital; 18:37 Follow up: Response: No adverse reaction; IV Status: Completed infusion; IV Intake: db 1000ml Disposition Summary: 12/02/24 16:52 Discharge Ordered Notes: Location: Home verenice Problem: new verenice Symptoms: have improved verenice Condition: Stable verenice Diagnosis - Other specified abnormal uterine and vaginal bleeding verenice - Abnormal uterine and vaginal bleeding, unspecified verenice Followup: verenice - With: Private Physician - When: 2 - 3 days - Reason: Recheck today's complaints, Continuance of care, Re-evaluation by your physician Discharge Instructions: - Discharge Summary Sheet verenice - Menorrhagia verenice - Vaginal Bleeding During , First Trimester verenice - Menorrhagia, [id number] verenice - Abnormal Uterine Bleeding, [id number] verenice - Vaginal Bleeding During , First Trimester, [id number] verenice Forms: - Medication Reconciliation Form verenice - Antibiotic Education verenice - Prescription Opioid Use verenice - Patient Portal Instructions verenice - Leadership Thank You Letter verenice Signatures: Dispatcher [employer] Sam Shanks MD MD cha Lewis, Lynsay RN RN ll1 Rita Cardenas RN RN cm10 Natalia Wayne RN db
--- NOTE | 2024-12-02 16:53 | ER ---
Nurse's Notes [facility] Name: Susan Christopher Age: 24 yrs Sex: Female : 2000 Arrival Date: 12/02/2024 Time: 13:46 Bed 19 Private MD: Diagnosis: Other specified abnormal uterine and vaginal bleeding;Abnormal uterine and vaginal bleeding, unspecified Presentation: 12/02 13:57 Chief complaint: Patient states: vaginal bleeding onset at noon. pt states that she was cm10 spotting and in the last hour it has gotten worse. Pt reports having positive test. Coronavirus screen: Client denies travel out of the [place] in the last 14 days. Ebola Screen: Patient denies travel to an Ebola-affected area in the 21 days before illness onset. Initial Sepsis Screen: Does the patient meet any 2 criteria? HR > 90 bpm. Does the patient have a suspected source of infection? No. Patient's initial sepsis screen is negative. Risk Assessment: Do you want to hurt yourself or someone else? Patient reports no desire to harm self or others. Onset of symptoms was December 02, 2024. 13:57 Method Of Arrival: Ambulatory cm10 13:57 Acuity: SHELLY 3 cm10 Triage Assessment: 13:59 General: Appears in no apparent distress. comfortable, Behavior is calm, cooperative. cm10 Pain: Complains of pain in abdomen Pain currently is 6 out of 10 on a pain scale. Quality of pain is described as crampy. Neuro: No deficits noted. Level of Consciousness is awake, alert, obeys commands, Oriented to person, place, time, situation, Appropriate for age. Respiratory: No deficits noted. Airway is patent Respiratory effort is even, unlabored, Respiratory pattern is regular, symmetrical. : Reports vaginal bleeding that is heavy flow. 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 - Infectious Disease History:: Denies. - Social history:: Smoking status: Patient denies any tobacco usage or history of. Screenin:35 [facility] ED Fall Risk Assessment (Adult) History of falling in the last 3 months, db including since admission No falls in past 3 months (0 pts) Confusion or Disorientation No (0 pts) Intoxicated or Sedated No (0 pts) Impaired Gait No (0 pts) Mobility Assist Device Used No (0 pt) Altered Elimination No (0 pt) Score/Fall Risk Level 0 - 2 = Low Risk Oriented to surroundings, Maintained a safe environment. Abuse screen: Denies threats or abuse. Denies injuries from another. Nutritional screening: No deficits noted. Tuberculosis screening: No symptoms or risk factors identified. Assessment: 15:25 Reassessment: Patient and/or family updated on plan of care and expected duration. Pain db level reassessed. 18:35 Obstetrical Assessment: General assessment: awake and alert, skin warm and dry. db Reassessment: Patient appears in no apparent distress at this time. Patient and/or family updated on plan of care and expected duration. Pain level reassessed. Patient is alert, oriented x 3, equal unlabored respirations, skin warm/dry/pink. General: Appears in no apparent distress. comfortable, Behavior is calm, cooperative. Neuro: Level of Consciousness is awake, alert, obeys commands, Oriented to person, place, time, situation. Respiratory: Airway is patent Respiratory effort is even, unlabored, Respiratory pattern is regular, symmetrical. Vital Signs: 13:57 BP 132 / 92; Pulse 98; Resp 18; Temp 97.7(TE); Pulse Ox 94% on R/A; Weight 125.19 kg; cm10 Height 5 ft. 3 in. ; Pain 6/10; 18:00 BP 141 / 88; Pulse 89; Resp 16; Pulse Ox 98% on R/A; db 13:57 Body Mass Index 48.89 (125.19 kg, 160.02 cm) cm10 13:57 Pain Scale: Adult cm10 ED Course: 13:48 Patient arrived in ED. mr 13:50 Sam Gaviria MD is Attending Physician. verenice 13:59 Triage completed. cm10 13:59 Arm band placed on right wrist. Patient placed in waiting room. cm10 15:25 Patient placed in an exam room, on a stretcher. db 15:30 Missed attempt(s): 20 gauge in right antecubital area. Bleeding controlled, band aid bc6 applied, catheter tip intact. 15:41 Initial lab(s) drawn, by ks, sent to lab. Inserted saline lock: 20 gauge in left bc6 antecubital area, using aseptic technique. Blood collected. Flushed with 10 mL NS. 15:41 Abo/rh Typing Sent. bc6 15:41 Basic Metabolic Panel Sent. bc6 15:41 CBC with Diff Sent. bc6 15:41 Quantitative Hcg Sent. [facility] 15:52 Natalia Wayne, RN is Primary Nurse. db 16:55 Patient moved to PA via wheelchair. db 17:23 US Transvaginal Ob In Process Unspecified. EDMS 18:35 Patient has correct armband on for positive identification. Bed in low position. Call db light in reach. Side rails up X 1. Provided Education on: DISCHARGE AND FOLLOWUP. Pulse ox on. NIBP on. Warm blanket given. Pillow given. 18:35 No provider procedures requiring assistance completed. IV discontinued, intact, db bleeding controlled, No redness/swelling at site. Administered Medications: 15:38 Drug: NS 0.9% IV 1000 ml IV at 1000 ml once; to be given as a bolus over 60 minutes ll1 Route: IV; Rate: 1000 ml; Site: left antecubital; 18:37 Follow up: Response: No adverse reaction; IV Status: Completed infusion; IV Intake: db 1000ml Medication: 18:35 VIS not applicable for this client. db Intake: 18:37 IV: 1000ml; Total: 1000ml. db Outcome: 16:52 Discharge ordered by . verenice 18:35 Discharged to home ambulatory, db 18:35 Condition: stable 18:35 Discharge instructions given to patient, Instructed on discharge instructions, follow up and referral plans. 18:37 Patient left the ED. db Signatures: Dispatcher [employer] EDMS Sam Gaviria MD MD cha Rivera, Mary, Reg Reg mr Maria Teresa Grimes, RN RN ll1 Natalia Wayne, RN RN db Isabella Boo 6 Rita Cardenas, ROBERT RN cm10
--- NOTE | 2024-12-02 18:31 | RAD REPORT ---
EXAMINATION: US Transvaginal OB CLINICAL INDICATION: Female 24 years old.[facility] MAIN ABD CRAMPING, Bed Name: 19 TECHNIQUE: Real-time ultrasonography of the pelvis was performed transvaginally. Color and spectral D oppler evaluation of the ovaries was performed. COMPARISON: No prior exam. FINDINGS: UTERUS AND CERVIX: The uterus measures 7.9 cm in length. The uterus is normal. No masses seen. Incide ntally noted nabothian cyst. Trace fluid along the cervical canal. The endometrium is normal, 0.7 cm in thickness. RIGHT OVARY: Normal The right ovary measures 2.6 x 1.9 x 1.9 cm. Normal color and spectral Doppler evaluation of the right ovary.. LEFT OVARY: Normal The left ovary measures 3.5 x 2.0 x 2.0 cm. Normal color and spectral Doppler evaluation of the left ovary.. FREE FLUID: No free fluid. IMPRESSION: No suspicious pelvic abnormality. Incidental findings as above.
[2024-12-03 01:51] VITALS: TEMP 97.7
[2024-12-03 01:54] VITALS: BP 141/88; O2SAT 98
== END 2024-12-02 18:37 | disposition home or self-care (01) ==
LOC: ER 13:46
DX: N93.8 Other specified abnormal uterine and vaginal bleeding (principal)
CPT/HCPCS: 85025; 80048; 36415; 86900; 81025; 86901; 84702; 76817; J7030